=== PATIENT | male | born 1970 | race Caucasian/White ===

== ENCOUNTER 2016-08-28 14:01 | Emergency (ER) | payer OTHER ==
[~2016-08-28 14:01] MED LIST: LEXA20TA PO; REME30TA PO; ZITHTAB PO
[2016-08-28 14:23] VITALS: BP 114/92; PULSE 94; RESP 16; TEMP 98; O2SAT 96
[2016-08-28] MEDS ORDERED: RESP: ALBUTEROL 2.5 MG/IPRATROPIUM 0.5 MG NEB (SCH) INH (14:30)
--- NOTE | 2016-08-28 14:35 | PD ---
HPI Chief Complaint: Psychiatric Symptoms Time Seen by Provider: 14:31 Travel History International Travel<30 days: No Contact w/Intl Traveler<30days: No Traveled to known affect area: No History of Present Illness HPI 45 year old male presents to the emergency department under [place] act by local police. Patient states he is depressed and feeling suicidal. Patient states he drinks a fifth of vodka daily. He states here he drank a fifth of vodka today. He also reports chest congestion and cough since last night. He states that he smoked cocaine last night as well as the night before. He states he does not typically use cocaine. He does report history of alcohol withdrawal seizures. Patient is not currently on any medications. Patient states his tetanus immunization is up-to-date. [facility] Past Medical History Anxiety: Yes Depression: Yes Cardiovascular Problems: Yes (PALPITATIONS ) Respiratory: Yes Seizures: Yes (ETOH WITHDRAWL ) Tetanus Vaccination: < 5 Years Social History Alcohol Use: Yes (VODKA 1/5 DAILY ) Tobacco Use: Yes (1 08/28 PPD) Substance Use: Yes (ETOH DAILY) Allergies-Medications (Allergen,Severity, Reaction): Coded Allergies: Paxil (Verified Allergy, Intermediate, Confusion, 08/28/16) Reported Meds & Prescriptions Reported Meds & Active Scripts Active No Active Prescriptions or Reported Medications Review of Systems Except as stated in HPI: all other systems reviewed are Neg Physical Exam Narrative GENERAL: Well-developed well-nourished male patient, ambulatory. Afebrile. SKIN: Warm and dry. Patient has dried blood on his left hand. No laceration noted. HEAD: Normocephalic. Atraumatic. EYES: No scleral icterus. No injection or drainage. NECK: Supple, trachea midline. No JVD or lymphadenopathy. CARDIOVASCULAR: Regular rate and rhythm without murmurs, gallops, or rubs. RESPIRATORY: Breath sounds equal bilaterally. No accessory muscle use. Mild extra wheezes noted throughout. Cough noted. GASTROINTESTINAL: Abdomen soft, non-tender, nondistended. MUSCULOSKELETAL: No cyanosis, or edema. BACK: Nontender without obvious deformity. No CVA tenderness. PSYCHIATRIC: No delusional thought processes. No hallucinations. Data Data Last Documented VS Vital Signs Date Time Temp Pulse Resp B/P Pulse Ox O2 Delivery O2 Flow Rate FiO2 08/28/16 14:23 98.0 94 16 114/92 96 Orders Complete Blood Count With Diff (08/28/16 14:30) Comprehensive Metabolic Panel (08/28/16 14:30) Drug Screen, Random Urine (08/28/16 14:30) Alcohol (Ethanol) (08/28/16 14:30) Salicylates (Aspirin) (08/28/16 14:30) Tylenol (Acetaminophen) (08/28/16 14:30) Psych Screen (08/28/16 14:30) Chest, Single Ap (08/28/16 14:30) Albuterol-Ipratropium Neb (Duoneb Neb) (08/28/16 14:30) Diet Regular Basic (08/28/16 Dinner) Labs Laboratory Tests Test 08/28/16 08/28/16 15:00 15:06 Urine Opiates Screen NEG Urine Barbiturates Screen NEG Urine Amphetamines Screen NEG Urine Benzodiazepines Screen NEG Urine Cocaine Screen POS Urine Cannabinoids Screen NEG White Blood Count 9.7 TH/MM3 Red Blood Count 5.09 MIL/MM3 Hemoglobin 16.4 GM/DL Hematocrit 47.7 % Mean Corpuscular Volume 93.7 FL Mean Corpuscular Hemoglobin 32.2 PG Mean Corpuscular Hemoglobin 34.4 % Concent Red Cell Distribution Width 14.2 % Platelet Count 256 TH/MM3 Mean Platelet Volume 8.0 FL Neutrophils (%) (Auto) 62.0 % Lymphocytes (%) (Auto) 31.3 % Monocytes (%) (Auto) 4.3 % Eosinophils (%) (Auto) 1.5 % Basophils (%) (Auto) 0.9 % Neutrophils # (Auto) 6.0 TH/MM3 Lymphocytes # (Auto) 3.0 TH/MM3 Monocytes # (Auto) 0.4 TH/MM3 Eosinophils # (Auto) 0.1 TH/MM3 Basophils # (Auto) 0.1 TH/MM3 CBC Comment DIFF FINAL Differential Comment Sodium Level 141 MEQ/L Potassium Level 3.8 MEQ/L Chloride Level 106 MEQ/L Carbon Dioxide Level 24.1 MEQ/L Anion Gap 11 MEQ/L Blood Urea Nitrogen 5 MG/DL Creatinine 0.69 MG/DL Estimat Glomerular Filtration 123 ML/MIN Rate Random Glucose 63 MG/DL Calcium Level 8.7 MG/DL Total Bilirubin 0.5 MG/DL Aspartate Amino Transf 17 U/L (AST/SGOT) Alanine Aminotransferase 24 U/L (ALT/SGPT) Alkaline Phosphatase 78 U/L Total Protein 7.0 GM/DL Albumin 3.8 GM/DL Salicylates Level 2.6 MG/DL Acetaminophen Level LESS THAN 2.0 MCG/ML Ethyl Alcohol Level 250 MG/DL MDM Medical Decision Making Medical Screen Exam Complete: Yes Emergency Medical Condition: Yes Medical Record Reviewed: Yes Interpretation(s) chest x-ray - CONCLUSION: No acute disease. Differential Diagnosis Substance induced mood disorder versus bipolar disorder versus depression versus anxiety versus URI versus bronchitis versus pneumonia Narrative Course 45-year-old male presents to the emergency department for psychiatric evaluation under [place] act by local police. Patient does have extra wheezes noted and patient complaining of chest congestion and cough. CBC, CMP, urine drug screen, alcohol level, acetaminophen level, salicylate level are ordered and pending. Patient's given DuoNeb 2. Chest x-ray is ordered and pending. CBC is unremarkable. CMP shows no acute abnormalities. UDS is positive for cocaine. Alcohol level is 250. Acetaminophen level is less than 2.0. Salicylate level is 2.6. Chest x-ray shows no acute disease. Patient is medically cleared for psychiatric screening and disposition. Mental health screening discussed with the patient. Psychiatric screen ordered. Diagnosis Primary Impression: Substance induced mood disorder Additional Impression: Alcohol intoxication Qualified Code: F10.120 - Alcohol intoxication, uncomplicated Additional Instructions: Patient is medically cleared for psychiatric screening and disposition. Scripts No Active Prescriptions or Reported Meds Condition: Stable JesseShirlene PAREKH Aug 28, 2016 14:34
--- NOTE | 2016-08-28 14:54 | RADRPT ---
EXAM DATE/TIME: 08/28/2016 14:36 [facility] COMPARISON: No previous studies available for comparison. INDICATIONS : Cough. MEDICAL HISTORY : None. SURGICAL HISTORY : None. ENCOUNTER: Initial ACUITY: 1 month PAIN SCORE: 0/10 LOCATION: Bilateral chest FINDINGS: A single view of the chest demonstrates the lungs to be symmetrically aerated without evidence of mas s, infiltrate or effusion. The cardiomediastinal contours are unremarkable. Osseous structures are intact. CONCLUSION: No acute disease. Jeanmarie Diana MD on August 28, 2016 at 14:52 Board Certified Radiologist. This report was verified electronically.
[2016-08-28 15:32] LABS: BASOPHIL # 0.1 TH/MM3 (0-0.2); BASOPHIL % 0.9 % (0.0-2.0); EOSINOPHIL # 0.1 TH/MM3 (0-0.4); EOSINOPHIL % 1.5 % (0.0-4.0); HEMATOCRIT 47.7 % (39.0-51.0); HEMO FLAGS DIFF FINAL; LYMPH % 31.3 % (9.0-44.0); MEAN CELL VOLUME 93.7 FL (80.0-100.0); MEAN CORPUSCULAR HEMOGLOBIN 32.2 PG (27.0-34.0); MEAN CORPUSCULAR HGB CONC 34.4 % (32.0-36.0); MONO % 4.3 % (0.0-8.0); PLATELET COUNT 256 TH/MM3 (150-450); RED BLOOD COUNT 5.09 MIL/MM3 (4.50-5.90); RED CELL DISTRIBUTION WIDTH 14.2 % (11.6-17.2); WHITE BLOOD COUNT 9.7 TH/MM3 (4.0-11.0)
[2016-08-28 15:38] LABS: AMPHETAMINE, URINE NEG (NEG); BARBITURATES, URINE NEG (NEG); COCAINE, URINE POS (NEG)
[2016-08-28 15:43] LABS: ALT (GPT) 24 U/L (12-78); ANION GAP 11 MEQ/L (5-15); AST (GOT) 17 U/L (15-37); BICARBONATE 24.1 MEQ/L (21.0-32.0); BLOOD UREA NITROGEN 5 MG/DL (7-18); CHLORIDE 106 MEQ/L (98-107); GLOMERULAR FILTRATION RATE 123 ML/MIN (>89); POTASSIUM 3.8 MEQ/L (3.5-5.1); SODIUM (NA) 141 MEQ/L (136-145)
[2016-08-28 15:46] LABS: ACETAMINOPHEN LESS THAN 2.0 MCG/ML (10.0-30.0); ALKALINE PHOSPHATASE 78 U/L (45-117); TOTAL BILIRUBIN ADULT 0.5 MG/DL (0.2-1.0)
[2016-08-28 18:59] VITALS: BP 126/75; PULSE 98; RESP 18; TEMP 99.1; O2SAT 93
[2016-08-28 22:20] VITALS: BP 156/88; PULSE 98; RESP 20; O2SAT 99
[2016-08-28 22:24] VITALS: BP 156/86; PULSE 98; RESP 2; O2SAT 99
[2016-08-28] MEDS ORDERED: chlordiazePOXIDE 25 MG CAP PO ONE (23:15)
[2016-08-29 03:09] VITALS: BP 154/88; PULSE 63; RESP 18; TEMP 97.1; O2SAT 97
[2016-08-29 06:16] VITALS: BP 156/93; PULSE 66; RESP 18; O2SAT 98
== END 2016-08-29 08:47 ==
LOC: NEDAMB 14:01 → NEPJ 08-29 08:47
DX: F19.94 Other psychoactive substance use, unspecified with psychoactive substance-induced mood disorder (principal); F10.120 Alcohol abuse with intoxication, uncomplicated; F17.210 Nicotine dependence, cigarettes, uncomplicated
CPT/HCPCS: 71010; 80053; 80307; 80320; 80329; 85025; 99283; G0480

== ENCOUNTER 2016-09-09 19:07 | Emergency (ER) | payer SELFPAY ==
[~2016-09-09] VITALS: Ht 172.7 cm; Wt 72.7 kg
[2016-09-09 19:18] VITALS: BP 109/58; PULSE 94; RESP 20; TEMP 98.5; O2SAT 97
[2016-09-09] MEDS ORDERED: ACETAMINOPHEN 325 MG TAB PO ONE (21:00)
--- NOTE | 2016-09-09 21:43 | PD ---
HPI Chief Complaint: Alcohol/Drug Intoxication Time Seen by Provider: 21:40 Travel History International Travel<30 days: No Contact w/Intl Traveler<30days: No History of Present Illness HPI 45-year-old male that presents to the ED for evaluation of substance abuse. Patient apparently was found by police belligerent and intoxicated. Patient states that he drank a lot of alcohol today. Patient has a history of alcohol abuse. Patient's only complaint is that of left knee pain and left shoulder pain that he has chronically. He states that he has a fracture shoulder and that he needed someone to look into it. He denies any other medical problems. No chest pain or shortness of breath. No abdominal pain. He denies any recent falls. Allergy to Paxil. 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 [facility] Past Medical History Anxiety: Yes Depression: Yes Cardiovascular Problems: Yes (PALPITATIONS ) Respiratory: Yes Seizures: Yes (ETOH WITHDRAWL ) Tetanus Vaccination: > 5 Years Social History Alcohol Use: Yes (VODKA 1/5 DAILY ) Tobacco Use: Yes (1 1/2 PPD) Substance Use: Yes (ETOH DAILY, COCAINE) Allergies-Medications (Allergen,Severity, Reaction): Coded Allergies: Paxil (Verified Allergy, Intermediate, Confusion, 09/09/16) Reported Meds & Prescriptions Reported Meds & Active Scripts Active No Active Prescriptions or Reported Medications Review of Systems Except as stated in HPI: all other systems reviewed are Neg Physical Exam Narrative GENERAL: SKIN: Warm and dry. HEAD: Atraumatic. Normocephalic. EYES: Pupils equal and round. No scleral icterus. No injection or drainage. ENT: No nasal bleeding or discharge. Mucous membranes pink and moist. NECK: Trachea midline. No JVD. CARDIOVASCULAR: Regular rate and rhythm. RESPIRATORY: No accessory muscle use. Clear to auscultation. Breath sounds equal bilaterally. GASTROINTESTINAL: Abdomen soft, non-tender, nondistended. Hepatic and splenic margins not palpable. MUSCULOSKELETAL: Extremities without clubbing, cyanosis, or edema. No obvious deformities. Patient does have some surgical scars on the left shoulder but able to move it fully. Some pain with range of motion. 2+ pulses bilaterally. Full range of motion of the knees. Patient has a brace on the left knee with no sign of acute disease. Pupils pulses bilaterally. Sensation intact bilaterally. Full range of motion of the ankles. NEUROLOGICAL: Awake and alert. No obvious cranial nerve deficits. Motor grossly within normal limits. Five out of 5 muscle strength in the arms and legs. Normal speech. PSYCHIATRIC: Appropriate mood and affect; insight and judgment normal. Data Data Last Documented VS Vital Signs Date Time Temp Pulse Resp B/P Pulse Ox O2 Delivery O2 Flow Rate FiO2 09/09/16 19:18 98.5 94 20 109/58 97 Orders Knee, Complete (4vws) (09/09/16 20:54) Shoulder, Complete (>2vws) (09/09/16 20:54) Ice/Cold Pack (09/09/16 20:54) Acetaminophen (Tylenol) (09/09/16 21:00) MDM Medical Decision Making Medical Screen Exam Complete: Yes Emergency Medical Condition: Yes Medical Record Reviewed: Yes Differential Diagnosis Alcohol abuse versus malingering versus substance abuse Narrative Course 45-year-old male that presents to the ED for evaluation of major psych. Patient was probably examined and was found to have no signs of acute medical distress. Patient complaining of pain on the left knee and shoulder. Patient was offered x-rays. Apparently patient declined x-rays and once MRIs. MRIs will not be done at this is a chronic problem and I do not see any need for new imaging at this time. Patient is to follow with orthopedic doctor for further assessment of this. Patient was given Tylenol for his pain. Patient will be allowed to sleep off his intoxication until medically sober. Diagnosis Primary Impression: Alcohol intoxication Qualified Code: F10.120 - Alcohol intoxication, uncomplicated Scripts No Active Prescriptions or Reported Meds Herbert Levin Sep 09, 2016 21:43
[2016-09-09 23:00] VITALS: BP 120/68; PULSE 84; RESP 16; O2SAT 98
[2016-09-10 03:00] VITALS: BP 129/70; PULSE 80; RESP 16; O2SAT 98
== END 2016-09-10 06:40 | disposition home or self-care (01) ==
LOC: NEPA 19:07
DX: F10.120 Alcohol abuse with intoxication, uncomplicated (principal)
CPT/HCPCS: 99284

== ENCOUNTER 2016-09-15 20:41 | Emergency (ER) | payer SELFPAY ==
[~2016-09-15] VITALS: Ht 172.7 cm; Wt 65.0 kg
[2016-09-15 20:42] VITALS: BP 136/104; PULSE 89; RESP 18; TEMP 98.1; O2SAT 96
== END 2016-09-16 00:48 | disposition left against medical advice (07) ==
LOC: NED 20:41
DX: R68.89 Other general symptoms and signs (principal)
CPT/HCPCS: 99281

== ENCOUNTER 2016-09-25 16:05 | Emergency (ER) | payer OTHER ==
[2016-09-25 16:37] VITALS: BP 130/83; PULSE 88; RESP 20; TEMP 97.9; O2SAT 98
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
--- NOTE | 2016-09-25 17:11 | RADRPT ---
EXAM DATE/TIME: 09/25/2016 16:56 [facility] COMPARISON: CHEST SINGLE AP, August 28, 2016, 14:36. INDICATIONS : Shortness of breath and cough for the past two months. Pain in upper chest. MEDICAL HISTORY : None. SURGICAL HISTORY : None. ENCOUNTER: Initial ACUITY: 2 months PAIN SCORE: 5/10 LOCATION: Bilateral chest FINDINGS: A single view of the chest demonstrates the lungs to be symmetrically aerated without evidence of mas s, infiltrate or effusion. The cardiomediastinal contours are unremarkable. Osseous structures are intact. CONCLUSION: No acute disease. No significant change has occurred. Edson Mcdowell MD on September 25, 2016 at 17:09 Board Certified Radiologist. This report was verified electronically.
--- NOTE | 2016-09-25 17:12 | RADRPT ---
EXAM DATE/TIME: 09/25/2016 17:02 [facility] COMPARISON: No previous studies available for comparison. INDICATIONS : Altered mental status with possible head trauma. RADIATION DOSE: 56.35 CTDIvol (mGy) MEDICAL HISTORY : Seizures. Cardiovascular disease SURGICAL HISTORY : None. ENCOUNTER: Initial ACUITY: 1 day PAIN SCALE: 3/10 LOCATION: cranial TECHNIQUE: Multiple contiguous axial images were obtained of the head. Using automated exposure control and adj ustment of the mA and/or kV according to patient size, radiation dose was kept as low as reasonably a chievable to obtain optimal diagnostic quality images. FINDINGS: CEREBRUM: The ventricles are normal for age. No evidence of midline shift, mass lesion, hemorrhage or acute in farction. No extra-axial fluid collections are seen. POSTERIOR FOSSA: The cerebellum and brainstem are intact. The 4th ventricle is midline. The cerebellopontine angle i s unremarkable. EXTRACRANIAL: The visualized portion of the orbits is intact. SKULL: The calvaria is intact. No evidence of skull fracture. CONCLUSION: Normal examination. Edson Mcdowell MD on September 25, 2016 at 17:10 Board Certified Radiologist. This report was verified electronically.
== END 2016-09-25 17:39 | disposition left against medical advice (07) ==
LOC: NEPE 16:05
DX: F10.10 Alcohol abuse, uncomplicated (principal); R05 Cough
CPT/HCPCS: 70450; 71010

== ENCOUNTER 2016-10-04 18:38 | Emergency (ER) | payer OTHER ==
[~2016-10-04] VITALS: Ht 162.6 cm; Wt 70.0 kg
[2016-10-04 19:50] LABS: AUTOMATED NEUTROPHIL # 6.4 TH/MM3 (1.8-7.7); BASOPHIL # 0.1 TH/MM3 (0-0.2); EOSINOPHIL # 0.3 TH/MM3 (0-0.4); EOSINOPHIL % 2.6 % (0.0-4.0); HEMATOCRIT 49.4 % (39.0-51.0); HEMO FLAGS DIFF FINAL; LYMPH % 31.8 % (9.0-44.0); LYMPHOCYTE # 3.5 TH/MM3 (1.0-4.8); MEAN CELL VOLUME 94.1 FL (80.0-100.0); MEAN CORPUSCULAR HEMOGLOBIN 32.6 PG (27.0-34.0); MEAN CORPUSCULAR HGB CONC 34.7 % (32.0-36.0); MONO % 6.6 % (0.0-8.0); PLATELET COUNT 225 TH/MM3 (150-450); RED BLOOD COUNT 5.25 MIL/MM3 (4.50-5.90); RED CELL DISTRIBUTION WIDTH 15.3 % (11.6-17.2)
[2016-10-04 19:54] LABS: AMPHETAMINE, URINE NEG (NEG); BARBITURATES, URINE NEG (NEG); COCAINE, URINE NEG (NEG)
[2016-10-04 20:00] VITALS: BP 148/88; PULSE 88; RESP 18; TEMP 98
[2016-10-04 20:29] LABS: ALKALINE PHOSPHATASE 76 U/L (45-117); ALT (GPT) 27 U/L (12-78); ANION GAP 7 MEQ/L (5-15); AST (GOT) 27 U/L (15-37); BICARBONATE 26.9 MEQ/L (21.0-32.0); BLOOD UREA NITROGEN 9 MG/DL (7-18); CHLORIDE 108 MEQ/L (98-107); GLOMERULAR FILTRATION RATE 104 ML/MIN (>89); POTASSIUM 4.6 MEQ/L (3.5-5.1); SODIUM (NA) 142 MEQ/L (136-145); TOTAL BILIRUBIN ADULT 0.5 MG/DL (0.2-1.0)
--- NOTE | 2016-10-04 20:49 | PD ---
HPI Chief Complaint: Psychiatric Symptoms Time Seen by Provider: 20:46 Travel History International Travel<30 days: No Contact w/Intl Traveler<30days: No Traveled to known affect area: No History of Present Illness HPI Patient was under [place] act by police for being intoxicated and making suicidal statements. Patient states that he was drinking today and he is wanting to stop for good. Patient denies any chest pain, shortness of breath, nausea, vomiting, or fevers. PFSH Past Medical History Anxiety: Yes Depression: Yes Cardiovascular Problems: Yes (PALPITATIONS ) Respiratory: Yes (COPD) Seizures: Yes (ETOH WITHDRAWL ) Social History Alcohol Use: Yes (VODKA 1/5 DAILY, " MUCH I POSSIBLY CAN") Tobacco Use: Yes (1 08/28 PPD) Substance Use: Yes (ETOH DAILY, COCAINE) Allergies-Medications (Allergen,Severity, Reaction): Coded Allergies: Paxil (Verified Allergy, Intermediate, Confusion, 09/25/16) Reported Meds & Prescriptions Reported Meds & Active Scripts Active No Active Prescriptions or Reported Medications Review of Systems ROS Limitations: Intoxication Except as stated in HPI: all other systems reviewed are Neg Physical Exam Exam Limitations: Intoxication Narrative GENERAL: Well-developed, well nourished, in no acute distress, and non-ill appearing. SKIN: Warm and dry. HEAD: Atraumatic. Normocephalic. EYES: Pupils equal and round. EOMI. No scleral icterus. No injection or drainage. ENT: No nasal bleeding or discharge. Mucous membranes pink and moist. NECK: Trachea midline. Supple. No nuclear rigidity. CARDIOVASCULAR: Regular rate and rhythm. No murmur appreciated. RESPIRATORY: No accessory muscle use. No respiratory distress. Clear to auscultation. Breath sounds equal bilaterally. MUSCULOSKELETAL: No obvious deformities. No clubbing. No cyanosis. No edema. Full range of motion. NEUROLOGICAL: Awake and alert. No obvious cranial nerve deficits. Motor grossly within normal limits. Data Data Last Documented VS Vital Signs Date Time Temp Pulse Resp B/P Pulse Ox O2 Delivery O2 Flow Rate FiO2 10/04/16 20:00 98.0 88 18 148/88 Orders Complete Blood Count With Diff (10/04/16 19:10) Comprehensive Metabolic Panel (10/04/16 19:10) Psych Screen (10/04/16 19:10) Drug Screen, Random Urine (10/04/16 19:10) Alcohol (Ethanol) (10/04/16 19:10) Labs Laboratory Tests Test 10/04/16 10/04/16 19:33 19:35 Urine Opiates Screen NEG Urine Barbiturates Screen NEG Urine Amphetamines Screen NEG Urine Benzodiazepines Screen POS Urine Cocaine Screen NEG Urine Cannabinoids Screen NEG White Blood Count 11.0 TH/MM3 Red Blood Count 5.25 MIL/MM3 Hemoglobin 17.1 GM/DL Hematocrit 49.4 % Mean Corpuscular Volume 94.1 FL Mean Corpuscular Hemoglobin 32.6 PG Mean Corpuscular Hemoglobin 34.7 % Concent Red Cell Distribution Width 15.3 % Platelet Count 225 TH/MM3 Mean Platelet Volume 8.4 FL Neutrophils (%) (Auto) 58.0 % Lymphocytes (%) (Auto) 31.8 % Monocytes (%) (Auto) 6.6 % Eosinophils (%) (Auto) 2.6 % Basophils (%) (Auto) 1.0 % Neutrophils # (Auto) 6.4 TH/MM3 Lymphocytes # (Auto) 3.5 TH/MM3 Monocytes # (Auto) 0.7 TH/MM3 Eosinophils # (Auto) 0.3 TH/MM3 Basophils # (Auto) 0.1 TH/MM3 CBC Comment DIFF FINAL Differential Comment Sodium Level 142 MEQ/L Potassium Level 4.6 MEQ/L Chloride Level 108 MEQ/L Carbon Dioxide Level 26.9 MEQ/L Anion Gap 7 MEQ/L Blood Urea Nitrogen 9 MG/DL Creatinine 0.80 MG/DL Estimat Glomerular Filtration 104 ML/MIN Rate Random Glucose 94 MG/DL Calcium Level 8.1 MG/DL Total Bilirubin 0.5 MG/DL Aspartate Amino Transf 27 U/L (AST/SGOT) Alanine Aminotransferase 27 U/L (ALT/SGPT) Alkaline Phosphatase 76 U/L Total Protein 7.3 GM/DL Albumin 3.8 GM/DL Ethyl Alcohol Level 244 MG/DL [facility] Medical Decision Making Medical Screen Exam Complete: Yes Emergency Medical Condition: Yes Differential Diagnosis Homicidal, suicidal, alcohol intoxication, mood disorder, other Narrative Course Patient was seen and examined. Labs were obtained and reviewed. Patient medically cleared for further treatment and evaluation by psych. Final disposition per psych. Diagnosis Primary Impression: Alcohol intoxication Qualified Code: F10.120 - Alcohol intoxication, uncomplicated Scripts No Active Prescriptions or Reported Meds Condition: Stable Maycol Moralez Oct 04, 2016 20:49
[2016-10-04] MEDS ORDERED: LORazepam 2 MG TAB PO PRN (21:00)
[2016-10-04] MEDS ORDERED: LORazepam 1 MG TAB PO PRN (21:00)
[2016-10-04] MEDS ORDERED: FLUMAZENIL 0.5 MG/5 ML VIAL IV PUSH PRN (21:00)
[2016-10-04] MEDS ORDERED: LORazepam 2 MG/ML VIAL IV PUSH PRN ×4 (21:00)
[2016-10-04 21:51] VITALS: BP 130/82; PULSE 92; RESP 18; TEMP 97.6; O2SAT 97
[2016-10-05 02:00] VITALS: BP 154/92; PULSE 94; RESP 18; O2SAT 97
== END 2016-10-05 04:22 ==
LOC: NEDAMB 18:38 → NEPJ 10-05 04:22
DX: F10.129 Alcohol abuse with intoxication, unspecified (principal); F41.8 Other specified anxiety disorders; J44.9 Chronic obstructive pulmonary disease, unspecified; F17.210 Nicotine dependence, cigarettes, uncomplicated; Y90.8 Blood alcohol level of 240 mg/100 ml or more
CPT/HCPCS: 80053; 80307; 80320; 85025; 99283

== ENCOUNTER 2016-10-12 19:26 | Emergency (ER) | payer OTHER ==
[2016-10-12 20:11] VITALS: BP 89/56; PULSE 86; RESP 18; TEMP 98.4; O2SAT 95
[2016-10-12 21:17] LABS: AUTOMATED NEUTROPHIL # 7.5 TH/MM3 (1.8-7.7); BASOPHIL # 0.1 TH/MM3 (0-0.2); BASOPHIL % 1.1 % (0.0-2.0); EOSINOPHIL # 0.2 TH/MM3 (0-0.4); EOSINOPHIL % 1.6 % (0.0-4.0); HEMO FLAGS DIFF FINAL; LYMPH % 27.6 % (9.0-44.0); LYMPHOCYTE # 3.3 TH/MM3 (1.0-4.8); MEAN CELL VOLUME 92.8 FL (80.0-100.0); MEAN CORPUSCULAR HEMOGLOBIN 32.1 PG (27.0-34.0); MEAN CORPUSCULAR HGB CONC 34.6 % (32.0-36.0); MONO % 7.1 % (0.0-8.0); NEUT % 62.6 % (16.0-70.0); PLATELET COUNT 201 TH/MM3 (150-450); RED BLOOD COUNT 4.95 MIL/MM3 (4.50-5.90); RED CELL DISTRIBUTION WIDTH 15.3 % (11.6-17.2)
--- NOTE | 2016-10-12 21:21 | PD ---
HPI Chief Complaint: Psychiatric Symptoms Time Seen by Provider: 21:21 Travel History International Travel<30 days: No Contact w/Intl Traveler<30days: No Traveled to known affect area: No History of Present Illness HPI 45 year male presents to emergency department for psychiatric evaluation. Patient states he has been drinking large amount of alcohol. He does have seizure disorder. States that he is feeling helpless and does not want to go on anymore. He still does not want to tell me if he has a plan. He denies any acute medical needs. Denies illicit drug use. Has no other symptoms to report. PFSH Past Medical History Anxiety: Yes Depression: Yes Cardiovascular Problems: Yes (PALPITATIONS ) Respiratory: Yes (COPD) Seizures: Yes (ETOH WITHDRAWL ) Social History Alcohol Use: Yes (VODKA 1/5 DAILY, " MUCH I POSSIBLY CAN") Tobacco Use: Yes (08/28 PPD) Substance Use: Yes (ETOH DAILY, COCAINE) Allergies-Medications (Allergen,Severity, Reaction): Coded Allergies: Paxil (Verified Allergy, Intermediate, Confusion, 09/25/16) Reported Meds & Prescriptions Reported Meds & Active Scripts Active No Active Prescriptions or Reported Medications Review of Systems ROS Limitations: Intoxication Except as stated in HPI: all other systems reviewed are Neg Physical Exam Exam Limitations: Intoxication Narrative GENERAL: Well-nourished, well-developed male patient in no acute distress. SKIN: Warm and dry. HEAD: Normocephalic. EYES: No scleral icterus. No injection or drainage. NECK: Supple, trachea midline. No JVD or lymphadenopathy. CARDIOVASCULAR: Regular rate and rhythm without murmurs, gallops, or rubs. RESPIRATORY: Breath sounds equal bilaterally. No accessory muscle use. GASTROINTESTINAL: Abdomen soft, non-tender, nondistended. MUSCULOSKELETAL: No cyanosis, or edema. BACK: Nontender without obvious deformity. No CVA tenderness. Data Data Last Documented VS Vital Signs Date Time Temp Pulse Resp B/P Pulse Ox O2 Delivery O2 Flow Rate FiO2 10/12/16 22:16 80 18 84/48 95 Room Air 10/12/16 20:11 98.4 Orders Complete Blood Count With Diff (10/12/16 20:24) Basic Metabolic Panel (Bmp) (10/12/16 20:24) Psych Screen (10/12/16 20:24) Drug Screen, Random Urine (10/12/16 20:24) Alcohol (Ethanol) (10/12/16 20:24) Labs Laboratory Tests Test 10/12/16 10/12/16 21:00 21:10 White Blood Count 12.0 TH/MM3 Red Blood Count 4.95 MIL/MM3 Hemoglobin 15.9 GM/DL Hematocrit 46.0 % Mean Corpuscular Volume 92.8 FL Mean Corpuscular Hemoglobin 32.1 PG Mean Corpuscular Hemoglobin 34.6 % Concent Red Cell Distribution Width 15.3 % Platelet Count 201 TH/MM3 Mean Platelet Volume 8.5 FL Neutrophils (%) (Auto) 62.6 % Lymphocytes (%) (Auto) 27.6 % Monocytes (%) (Auto) 7.1 % Eosinophils (%) (Auto) 1.6 % Basophils (%) (Auto) 1.1 % Neutrophils # (Auto) 7.5 TH/MM3 Lymphocytes # (Auto) 3.3 TH/MM3 Monocytes # (Auto) 0.8 TH/MM3 Eosinophils # (Auto) 0.2 TH/MM3 Basophils # (Auto) 0.1 TH/MM3 CBC Comment DIFF FINAL Differential Comment Sodium Level 139 MEQ/L Potassium Level 4.0 MEQ/L Chloride Level 103 MEQ/L Carbon Dioxide Level 26.2 MEQ/L Anion Gap 10 MEQ/L Blood Urea Nitrogen 18 MG/DL Creatinine 0.77 MG/DL Estimat Glomerular Filtration 109 ML/MIN Rate Random Glucose 102 MG/DL Calcium Level 8.3 MG/DL Ethyl Alcohol Level 241 MG/DL Urine Opiates Screen NEG Urine Barbiturates Screen NEG Urine Amphetamines Screen NEG Urine Benzodiazepines Screen POS Urine Cocaine Screen NEG Urine Cannabinoids Screen NEG MDM Medical Decision Making Medical Screen Exam Complete: Yes Emergency Medical Condition: Yes Medical Record Reviewed: Yes Differential Diagnosis Mood disorder versus personality disorder versus alcohol intoxication versus alcohol dependency versus withdraw Narrative Course 45 year-old male presents to emergency department for evaluation. Patient appears overall without distress. He does appear intoxicated and discusses wanting to end his life. CBC and BMP are without acute concern. Toxicology is positive for benzodiazepines. EtOH is 241. Patient is medically cleared to undergo psychiatric screening for further evaluation and disposition. Mental health screening discussed with the patient. Psychiatric screen ordered. Diagnosis Primary Impression: Alcohol intoxication Qualified Code: F10.120 - Alcohol intoxication, uncomplicated Additional Impression: Substance induced mood disorder Scripts No Active Prescriptions or Reported Meds Condition: Stable Olivia Olea Oct 12, 2016 21:21
[2016-10-12 21:27] LABS: AMPHETAMINE, URINE NEG (NEG); BARBITURATES, URINE NEG (NEG); COCAINE, URINE NEG (NEG)
[2016-10-12 21:40] LABS: BICARBONATE 26.2 MEQ/L (21.0-32.0)
[2016-10-12 22:16] VITALS: BP 84/48; PULSE 80; RESP 18; O2SAT 95
[2016-10-14] MEDS ORDERED: LEXA10TA PO (21:22)
[2016-10-14] MEDS ORDERED: REME15TA PO (21:22)
== END 2016-10-13 00:55 ==
LOC: NEDAMB 19:26 → NEPJ 10-13 00:55
DX: F10.120 Alcohol abuse with intoxication, uncomplicated (principal); Y90.8 Blood alcohol level of 240 mg/100 ml or more
CPT/HCPCS: 80048; 80307; 80320; 85025; 99284

== ENCOUNTER 2016-10-14 19:29 | Emergency (ER) | payer SELFPAY ==
[~2016-10-14] VITALS: Ht 172.7 cm; Wt 70.0 kg
[2016-10-14 19:30] VITALS: BP 129/69; PULSE 121; RESP 20; TEMP 98.7; O2SAT 91
[2016-10-14] MEDS ORDERED: SODIUM CHLORIDE 0.9% FLUSH 5 ML FLUSH IVF PRN (19:45)
[2016-10-14] MEDS ORDERED: SODIUM CHLOR 0.9% 1000 ML INJ 1,000 ML IV ONE (19:45)
[2016-10-14] MEDS ORDERED: ACTIVATED CHARCOAL LIQUID 25 GM/120 ML BTL PO/NG ONE (19:45)
[2016-10-14 20:00] VITALS: BP 129/64; PULSE 125; RESP 18; O2SAT 94
[2016-10-14 20:30] VITALS: BP 116/58; PULSE 126; RESP 18; O2SAT 98
[2016-10-14 20:46] LABS: AUTOMATED NEUTROPHIL # 5.2 TH/MM3 (1.8-7.7); BASOPHIL # 0.1 TH/MM3 (0-0.2); BASOPHIL % 0.6 % (0.0-2.0); EOSINOPHIL # 0.3 TH/MM3 (0-0.4); EOSINOPHIL % 2.9 % (0.0-4.0); HEMATOCRIT 46.4 % (39.0-51.0); HEMO FLAGS DIFF FINAL; LYMPH % 35.6 % (9.0-44.0); LYMPHOCYTE # 3.5 TH/MM3 (1.0-4.8); MEAN CELL VOLUME 94.8 FL (80.0-100.0); MEAN CORPUSCULAR HEMOGLOBIN 33.5 PG (27.0-34.0); MEAN CORPUSCULAR HGB CONC 35.4 % (32.0-36.0); MONO % 8.3 % (0.0-8.0); NEUT % 52.6 % (16.0-70.0); PLATELET COUNT 234 TH/MM3 (150-450); RED CELL DISTRIBUTION WIDTH 15.2 % (11.6-17.2); WHITE BLOOD COUNT 9.9 TH/MM3 (4.0-11.0)
[2016-10-14 20:57] LABS: APTT (PATIENT) 25.9 SEC (24.3-30.1); INTERNATIONAL NORMALIZED RATIO 0.9 RATIO; PROTHROMBIN TIME - PATIENT 9.8 SEC (9.8-11.6)
[2016-10-14] MEDS ORDERED: REME15TA PO (21:22)
[2016-10-14] MEDS ORDERED: LEXA10TA PO (21:22)
[2016-10-14 21:45] VITALS: BP 115/56; PULSE 123; RESP 20; O2SAT 94
[2016-10-14 21:46] LABS: BLOOD GAS BASE EXCESS -3.8 mmol/L (-2-2); BLOOD GAS CARBOXYHEMOGLOBIN 10.2 % (0-4); BLOOD GAS HCO3 21 mmol/L (22-26); BLOOD GAS METHEMOGLOBIN 2.8 % (0-2); BLOOD GAS O2 HGB SATURATION 83 % (90-100); BLOOD GAS OXYGEN CONTENT 18.2 Vol % (12.0-20.0); BLOOD GAS PCO2 42 mmHg (38-42); BLOOD GAS PO2 79 mmHG (61-120); BLOOD GAS TOTAL HGB 15.6 G/DL (12.0-16.0); CRITICAL VALUE YES; OXYGEN DEVICE NASAL CANNULA; TEMP CORR TO 98.6
[2016-10-14 21:47] LABS: DRAW SITE RT RADIAL; LITER FLOW 1 L/M; NUMBER OF ARTERIAL PUNCTURES 1; STAT YES; ULNAR PULSE PRESENT
[2016-10-14 22:08] LABS: ALKALINE PHOSPHATASE 85 U/L (45-117); ANION GAP 13 MEQ/L (5-15); AST (GOT) 51 U/L (15-37); BICARBONATE 21.2 MEQ/L (21.0-32.0); BLOOD UREA NITROGEN 23 MG/DL (7-18); CHLORIDE 107 MEQ/L (98-107); GLOMERULAR FILTRATION RATE 87 ML/MIN (>89); POTASSIUM 4.4 MEQ/L (3.5-5.1); SODIUM (NA) 141 MEQ/L (136-145); TOTAL BILIRUBIN ADULT 0.4 MG/DL (0.2-1.0)
[2016-10-14 22:09] LABS: ACETAMINOPHEN LESS THAN 2.0 MCG/ML (10.0-30.0); ALT (GPT) 50 U/L (12-78)
--- NOTE | 2016-10-14 22:23 | PD ---
HPI Chief Complaint: OD/ Ingestion Time Seen by Provider: 19:45 Travel History International Travel<30 days: No Contact w/Intl Traveler<30days: No Traveled to known affect area: No History of Present Illness HPI 45-year-old male arrives to the ER by EMS. He reports ingesting 30 tablets of Lexapro and 8 tablets of Remeron approximately one hour or so prior to arrival to the ER. He also reports drinking 1 L of vodka and multiple cans of 4 loco. He then went to the police station. He arrives as a Palencia act. His only complaint is pain in the knee and pain in the left ribs related to in-line hockey. He states he drinks every day. He denies HI. PFSH Past Medical History Anxiety: Yes Depression: Yes Cardiovascular Problems: Yes (PALPITATIONS ) COPD: Yes Respiratory: Yes (COPD) Seizures: Yes (ETOH WITHDRAWL ) Tetanus Vaccination: < 5 Years Influenza Vaccination: No Social History Alcohol Use: Yes (1 litter vodka toda) Tobacco Use: Yes (1 1/2 PPD) Substance Use: Yes (ETOH DAILY, COCAINE) Allergies-Medications (Allergen,Severity, Reaction): Coded Allergies: Paxil (Verified Allergy, Intermediate, Confusion, 09/25/16) Reported Meds & Prescriptions Reported Meds & Active Scripts Active Reported Remeron (Mirtazapine) 15 Mg Tab 15 Mg PO HS Lexapro (Escitalopram Oxalate) 10 Mg Tab 10 Mg PO DAILY Review of Systems Except as stated in HPI: all other systems reviewed are Neg General / Constitutional: No: Fever Musculoskeletal: Positive: Pain Psychiatric: Positive: Depression, Suicidal Ideations, Substance Abuse Physical Exam Narrative GENERAL: 45 yo M, WNWD, depressed affect SKIN: Warm and dry. HEAD: Atraumatic. Normocephalic. EYES: Pupils equal and round. No scleral icterus. No injection or drainage. ENT: No nasal bleeding or discharge. Mucous membranes pink and moist. NECK: Trachea midline. No JVD. CARDIOVASCULAR: Tachycardia. Regular rhythm. RESPIRATORY: No accessory muscle use. Clear to auscultation. Breath sounds equal bilaterally. GASTROINTESTINAL: Abdomen soft, non-tender, nondistended. Hepatic and splenic margins not palpable. MUSCULOSKELETAL: No obvious deformities. No clubbing. No cyanosis. No edema. NEUROLOGICAL: Awake and alert. No obvious cranial nerve deficits. Motor grossly within normal limits. Normal speech. PSYCHIATRIC: EtOH on breath. Apparent SI. Data Data Last Documented VS Vital Signs Date Time Temp Pulse Resp B/P Pulse Ox O2 Delivery O2 Flow Rate FiO2 10/14/16 21:45 123 20 115/56 94 Nasal Cannula 2 10/14/16 19:30 98.7 Vs reviewed Orders Electrocardiogram (10/14/16 19:45) Complete Blood Count With Diff (10/14/16 19:45) Comprehensive Metabolic Panel (10/14/16 19:45) Prothrombin Time / Inr (Pt) (10/14/16 19:45) Act Partial Throm Time (Ptt) (10/14/16 19:45) Urinalysis - C+S If Indicated (10/14/16 19:45) Arterial Blood Gas (Abg) (10/14/16 19:45) Iv Access Insert/Monitor (10/14/16 19:45) Ecg Monitoring (10/14/16 19:45) Oximetry (10/14/16 19:45) Psych Screen (10/14/16 19:45) Charcoal Activated Liq (Actidose-Aqua Li (10/14/16 19:45) Sodium Chloride 0.9% Flush (Ns Flush) (10/14/16 19:45) Sodium Chlor 0.9% 1000 Ml Inj (Ns 1000 M (10/14/16 19:45) Call Poison Control (10/14/16 19:45) Drug Screen, Random Urine (10/14/16 19:45) Alcohol (Ethanol) (10/14/16 19:45) Salicylates (Aspirin) (10/14/16 19:45) Tylenol (Acetaminophen) (10/14/16 19:45) Labs Laboratory Tests Test 10/14/16 10/14/16 20:00 20:10 Blood Gas Puncture Site RT RADIAL Blood Gas Patient Temperature 98.6 Blood Gas HCO3 21 mmol/L Blood Gas Base Excess -3.8 mmol/L Blood Gas Oxygen Saturation 83 % Arterial Blood pH 7.33 Arterial Blood Partial 42 mmHg Pressure CO2 Arterial Blood Partial 79 mmHG Pressure O2 Arterial Blood Oxygen Content 18.2 Vol % Arterial Blood 10.2 % Carboxyhemoglobin Arterial Blood Methemoglobin 2.8 % Blood Gas Hemoglobin 15.6 G/DL Oxygen Delivery Device NASAL CANNULA Blood Gas Liter Flow 1 L/M White Blood Count 9.9 TH/MM3 Red Blood Count 4.90 MIL/MM3 Hemoglobin 16.4 GM/DL Hematocrit 46.4 % Mean Corpuscular Volume 94.8 FL Mean Corpuscular Hemoglobin 33.5 PG Mean Corpuscular Hemoglobin 35.4 % Concent Red Cell Distribution Width 15.2 % Platelet Count 234 TH/MM3 Mean Platelet Volume 8.8 FL Neutrophils (%) (Auto) 52.6 % Lymphocytes (%) (Auto) 35.6 % Monocytes (%) (Auto) 8.3 % Eosinophils (%) (Auto) 2.9 % Basophils (%) (Auto) 0.6 % Neutrophils # (Auto) 5.2 TH/MM3 Lymphocytes # (Auto) 3.5 TH/MM3 Monocytes # (Auto) 0.8 TH/MM3 Eosinophils # (Auto) 0.3 TH/MM3 Basophils # (Auto) 0.1 TH/MM3 CBC Comment DIFF FINAL Differential Comment Prothrombin Time 9.8 SEC Prothromb Time International 0.9 RATIO Ratio Activated Partial 25.9 SEC Thromboplast Time Sodium Level 141 MEQ/L Potassium Level 4.4 MEQ/L Chloride Level 107 MEQ/L Carbon Dioxide Level 21.2 MEQ/L Anion Gap 13 MEQ/L Blood Urea Nitrogen 23 MG/DL Creatinine 0.93 MG/DL Estimat Glomerular Filtration 87 ML/MIN Rate Random Glucose 121 MG/DL Calcium Level 8.0 MG/DL Total Bilirubin 0.4 MG/DL Aspartate Amino Transf 51 U/L (AST/SGOT) Alanine Aminotransferase 50 U/L (ALT/SGPT) Alkaline Phosphatase 85 U/L Total Protein 6.9 GM/DL Albumin 3.4 GM/DL Salicylates Level LESS THAN 1.7 MG/DL Acetaminophen Level LESS THAN 2.0 MCG/ML Ethyl Alcohol Level 230 MG/DL [facility] Medical Decision Making Medical Screen Exam Complete: Yes Emergency Medical Condition: Yes Differential Diagnosis Altered mental status/psychosis due to infection/environmental exposure/ metabolic abnormality, polypharmacy, alcohol abuse/intoxication, illicit or prescribed drug abuse, malingering/secondary gain, non-organic psychiatric disease Narrative Course CBC & BMP Diagram 10/14/16 20:10 LFTs essentially normal Alcohol 230 Salicylates and acetaminophen both negative Coags 9.8 / 0.9 / 25.9 EKG shows a sinus tachycardia with a rate of 122 and a KS interval of 119 normal axis The history of present illness, ROS, physical exam, review of records and medical workup performed for today's visit have reasonably safely excluded organic etiologies for the patient's presenting complaint. True medical emergency has also been reasonably safely ruled out. We will continue to monitor the patient carefully in the ER until time of evaluation by the psychiatry service. We are available for any additional medical assistance if needed during the patient's ER course. Disposition per discretion of psychiatry is appreciated. Diagnosis Primary Impression: Intentional SSRI (selective serotonin reuptake inhibitor) overdose Qualified Code: T43.222A - Intentional SSRI (selective serotonin reuptake inhibitor) overdose, initial encounter Additional Impressions: Alcohol abuse Suicidal behavior Qualified Code: T14.91 - Suicidal behavior with attempted self-injury Moe Ferrari MD Oct 14, 2016 22:23
[2016-10-14 22:26] VITALS: BP 137/61; PULSE 107; RESP 18; O2SAT 94
[2016-10-14 23:30] VITALS: BP 122/68; PULSE 98; RESP 18; O2SAT 94
[2016-10-15 01:40] VITALS: BP 114/58; PULSE 98; RESP 18; O2SAT 94
[2016-10-15 01:44] LABS: BLOOD, URINE NEG (NEG); GLUCOSE,URINE NEG (NEG); KETONE, URINE TRACE mg/dL (NEG); NITRITE,URINE NEG (NEG); PH, URINE 5.5 (5.0-8.5); URINE COLOR YELLOW (YELLW/STRAW)
[2016-10-15 01:53] LABS: COMMENT (UR) CULT NOT INDICATED; CULTURE IF INDICATED CULT NOT INDICATED
[2016-10-15 02:50] LABS: AMPHETAMINE, URINE NEG (NEG); BARBITURATES, URINE NEG (NEG); COCAINE, URINE NEG (NEG)
[2016-10-15 06:41] VITALS: BP 148/95; PULSE 75; RESP 18; O2SAT 97
[2016-10-15 08:09] VITALS: BP 127/96; PULSE 72; RESP 18; O2SAT 96
[2016-10-15 10:09] VITALS: BP 150/84; PULSE 92; RESP 18; O2SAT 97
[2016-10-15] MEDS ORDERED: ACETAMINOPHEN 325 MG TAB PO ONE (10:15)
[2016-10-15] MEDS ORDERED: LORazepam 0.5 MG TAB PO ONE (10:15)
[2016-10-15 12:19] VITALS: BP 131/81; PULSE 73; RESP 18; TEMP 98.7; O2SAT 97
[2016-10-15] MEDS ORDERED: LORazepam 1 MG TAB PO PRN (12:45)
[2016-10-15] MEDS ORDERED: LORazepam 2 MG/ML VIAL IV PUSH PRN ×4 (12:45)
[2016-10-15] MEDS ORDERED: LORazepam 2 MG TAB PO PRN (12:45)
[2016-10-15 14:47] VITALS: BP 143/78; PULSE 68; RESP 18; O2SAT 97
--- NOTE | 2016-10-15 15:15 | EKG ---
Date Performed: 10/14/2016 Time Performed: 21:50:54 PTAGE: 45 years EKG: SINUS TACHYCARDIA WITH SHORT MT INTERVAL Since previous tracing, no significant change note d ABNORMAL RHYTHM ECG PREVIOUS TRACING : 10/14/2016 19.48 DOCTOR: Jason Haas Interpretating Date/Time 10/15/2016 15:13:40
--- NOTE | 2016-10-15 15:15 | EKG ---
Date Performed: 10/14/2016 Time Performed: 19:48:45 PTAGE: 45 years EKG: SINUS TACHYCARDIA WITH SHORT [place] INTERVAL ABNORMAL RHYTHM ECG NO PREVIOUS TRACING DOCTOR: Jason Haas Interpretating Date/Time 10/15/2016 15:13:24
--- NOTE | 2016-10-15 16:02 | PD ---
History of Present Illness Chief Complaint: OD/ Ingestion Time Seen by Provider: 15:45 Travel History International Travel<30 Days: No Contact w/Intl Traveler<30days: No Known affected area: No Legal Status Legal Status: Palencia Act Palencia Act Signed By: Deysi Medina History of Present Illness: History of Present Illness HPI 45-year-old male with hx of alcohol abuse who arrives to the ER by EMS He is under a BA and it reads as follows; " Sobriety has been too hard for Patrick so he showed up at the police department and stated that he overdosed on meds and wanted to end it all." As per Ed documentation he reported that he ingested 30 tablets of Lexapro and 8 tablets of Remeron approximately one hour or so prior to arrival to the ER. He also reports drinking 1 L of vodka and multiple cans of 4 loco. Patient was medically cleared and he then was monitored in J pod. He presented with BAL of 230 and positive for benzos. Record reviewed. This patient has been evaluated at this ED 6 times in 2017. he has been sent to [facility] for detox several times and his last visit there was on Oct 12, 2016. Patient is seen in J pod. He has been awake and ambulating several times before I meet with him. He is alert, oriented, calm and cooperative. His speech is clear and logical. No yulia and no psychosis. He states " I am not depressed and I am not suicidal . I was drinking heavily and I guess took too many pills. I immediately went to the police. I have a job interview in the morning and I want to be discharged. I have too much free time on my hands and I guess that's why I drink". Patient is minimizing his alcohol use even when I point out to him that he has been here in Ed multiple times. He states " It's the police who keep bringing me here". PFSH Past Medical History Anxiety: Yes Depression: Yes Cardiovascular Problems: Yes (PALPITATIONS ) COPD: Yes Respiratory: Yes (COPD) Seizures: Yes (ETOH WITHDRAWL ) Tetanus Vaccination: < 5 Years Influenza Vaccination: No Psychiatric History Psychiatric History Hx Psychiatric Treatment: HX OF ANXIETY, PTSD AND DEPRESSION History of Inpatient Treatment: Yes ([facility]) Guns or firearms in home: No Social History Single male. Lives in [facility] by himself. 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 Hx Alcohol Use: Yes (1 litter vodka toda) Hx Tobacco Use: Yes (1 08/28 PPD) Hx Substance Use: Yes (ETOH DAILY, COCAINE) Substance Use Type: Alcohol, Nicotine/Cigarettes, Cocaine Hx of Substance Use Treatment: Yes Family Psychiatric History Negative Allergies-Medications (Allergen,Severity, Reaction): Coded Allergies: Paxil (Verified Allergy, Intermediate, Confusion, 09/25/16) Reported Meds & Prescriptions Reported Meds & Active Scripts Active Reported Remeron (Mirtazapine) 15 Mg Tab 15 Mg PO HS Lexapro (Escitalopram Oxalate) 10 Mg Tab 10 Mg PO DAILY Review of Systems Constitutional: DENIES: Diaphoretic episodes, Fatigue, Fever, Weight gain, Weight loss, Chills, Dizziness, Change in appetite, Night Sweats Endocrine: DENIES: Heat/cold intolerance, Polydipsia, Polyuria, Polyphagia Eyes: DENIES: Blurred vision, Diplopia, Eye inflammation, Eye pain, Vision loss , Photosensitivity, Double Vision Ears, nose, mouth, throat: DENIES: Tinnitus, Hearing loss, Vertigo, Nasal discharge, Oral lesions, Throat pain, Hoarseness, Ear Pain, Running Nose, Epistaxis, Sinus Pain, Toothache, Odynophagia Respiratory: DENIES: Apneas, Cough, Snoring, Wheezing, Hemoptysis, Sputum production, Shortness of breath Cardiovascular: DENIES: Chest pain, Palpitations, Syncope, Dyspnea on Exertion , PND, Lower Extremity Edema, Orthopnea, Claudication Gastrointestinal: COMPLAINS OF: Nausea Musculoskeletal: DENIES: Joint pain, Muscle aches, Stiffness, Joint Swelling, Back pain, Neck pain Integumentary: DENIES: Abnormal pigmentation, Nail changes, Pruritus, Rash Hematologic/lymphatic: DENIES: Bruising, Lymphadenopathy Immunologic/allergic: DENIES: Eczema, Urticaria Neurologic: DENIES: Abnormal gait, Headache, Localized weakness, Paresthesias, Seizures, Speech Problems, Tremor, Poor Balance Psychiatric: DENIES: Anxiety, Confusion, Mood changes, Depression, Hallucinations, Agitation, Suicidal Ideation, Homicidal Ideation, Delusions Exam Alert: Yes [place]: Person (ox4) Mood: Calm Affect: Euthymic Speech: Clear, Logical Eye Contact: Normal Memory Intact: Comment (not impaired) Hallucinations: Other (negative) Delusions: No Suicidal: Ideation (denies any) Homicidal: Ideation (denies any) Insight/Judgement poor. poor MDM Medical Decision Making Medical Record Reviewed: Yes Assessment/Plan 45 year old male with history of alcohol dependence who presents under a BA after he reported that he took some pills. Patient walked himself to the police dept for help. He was intoxicated at the time. At this time he is clinically sober . He denies any intent to harm himself and is requesting discharge as he has a job interview tomorrow. I have counseled him regarding his continued use of alcohol and his lack of control over his use. At this time patient is at a precontemplative stage and is minimizing his use. I have counseled him and he does say that he has begun to attend AA and has support. Lift BA. Does not meet criteria. Orders Electrocardiogram (10/14/16 19:45) Complete Blood Count With Diff (10/14/16 19:45) Comprehensive Metabolic Panel (10/14/16 19:45) Prothrombin Time / Inr (Pt) (10/14/16 19:45) Act Partial Throm Time (Ptt) (10/14/16 19:45) Urinalysis - C+S If Indicated (10/14/16 19:45) Arterial Blood Gas (Abg) (10/14/16 19:45) Iv Access Insert/Monitor (10/14/16 19:45) Ecg Monitoring (10/14/16 19:45) Oximetry (10/14/16 19:45) Psych Screen (10/14/16 19:45) Charcoal Activated Liq (Actidose-Aqua Li (10/14/16 19:45) Sodium Chloride 0.9% Flush (Ns Flush) (10/14/16 19:45) Sodium Chlor 0.9% 1000 Ml Inj (Ns 1000 M (10/14/16 19:45) Call Poison Control (10/14/16 19:45) Drug Screen, Random Urine (10/14/16 19:45) Alcohol (Ethanol) (10/14/16 19:45) Salicylates (Aspirin) (10/14/16 19:45) Tylenol (Acetaminophen) (10/14/16 19:45) Diet Regular Basic (10/15/16 Breakfast) Dietary (Dietitian) Consult (10/15/16 ) Electrocardiogram (10/14/16 21:50) Acetaminophen (Tylenol) (10/15/16 10:15) Lorazepam (Ativan) (10/15/16 10:15) Alcohol Withdrawal Asmt-Ciwa [id number] (10/15/16 12:41) Lorazepam (Ativan) (10/15/16 12:45) Lorazepam Inj (Ativan Inj) (10/15/16 12:45) Lorazepam (Ativan) (10/15/16 12:45) Lorazepam Inj (Ativan Inj) (10/15/16 12:45) Lorazepam Inj (Ativan Inj) (10/15/16 12:45) Lorazepam Inj (Ativan Inj) (10/15/16 12:45) Diet Regular Basic (10/15/16 Dinner) Results Vital Signs Date Time Temp Pulse Resp B/P Pulse Ox O2 Delivery O2 Flow Rate FiO2 10/15/16 14:47 68 18 143/78 97 Room Air 10/15/16 12:19 98.7 73 18 131/81 97 Room Air 10/15/16 10:09 92 18 150/84 97 Room Air 10/15/16 08:09 72 18 127/96 96 Room Air 10/15/16 06:41 75 18 148/95 97 Room Air 10/15/16 01:40 98 18 114/58 94 Room Air 10/14/16 23:30 98 18 122/68 94 Room Air 10/14/16 22:26 107 18 137/61 94 Room Air 10/14/16 21:45 123 20 115/56 94 Nasal Cannula 2 10/14/16 21:17 95 Nasal Cannula 2 10/14/16 20:30 126 18 116/58 98 Nasal Cannula 2 10/14/16 20:00 125 18 129/64 94 Nasal Cannula 2 10/14/16 19:30 98.7 121 20 129/69 91 Laboratory Tests Test 10/14/16 10/14/16 10/15/16 20:00 20:10 01:30 Blood Gas Puncture Site RT RADIAL Blood Gas Patient Temperature 98.6 Blood Gas HCO3 21 Blood Gas Base Excess -3.8 Blood Gas Oxygen Saturation 83 Arterial Blood pH 7.33 Arterial Blood Partial 42 Pressure CO2 Arterial Blood Partial 79 Pressure O2 Arterial Blood Oxygen Content 18.2 Arterial Blood 10.2 Carboxyhemoglobin Arterial Blood Methemoglobin 2.8 Blood Gas Hemoglobin 15.6 Oxygen Delivery Device NASAL CANNULA Blood Gas Liter Flow 1 White Blood Count 9.9 Red Blood Count 4.90 Hemoglobin 16.4 Hematocrit 46.4 Mean Corpuscular Volume 94.8 Mean Corpuscular Hemoglobin 33.5 Mean Corpuscular Hemoglobin 35.4 Concent Red Cell Distribution Width 15.2 Platelet Count 234 Mean Platelet Volume 8.8 Neutrophils (%) (Auto) 52.6 Lymphocytes (%) (Auto) 35.6 Monocytes (%) (Auto) 8.3 Eosinophils (%) (Auto) 2.9 Basophils (%) (Auto) 0.6 Neutrophils # (Auto) 5.2 Lymphocytes # (Auto) 3.5 Monocytes # (Auto) 0.8 Eosinophils # (Auto) 0.3 Basophils # (Auto) 0.1 CBC Comment DIFF FINAL Differential Comment Prothrombin Time 9.8 Prothromb Time International 0.9 Ratio Activated Partial 25.9 Thromboplast Time Sodium Level 141 Potassium Level 4.4 Chloride Level 107 Carbon Dioxide Level 21.2 Anion Gap 13 Blood Urea Nitrogen 23 Creatinine 0.93 Estimat Glomerular Filtration 87 Rate Random Glucose 121 Calcium Level 8.0 Total Bilirubin 0.4 Aspartate Amino Transf 51 (AST/SGOT) Alanine Aminotransferase 50 (ALT/SGPT) Alkaline Phosphatase 85 Total Protein 6.9 Albumin 3.4 Salicylates Level LESS THAN 1.7 Acetaminophen Level LESS THAN 2.0 Ethyl Alcohol Level 230 Urine Color YELLOW Urine Turbidity CLEAR Urine pH 5.5 Urine Specific [place] 1.022 Urine Protein NEG Urine Glucose (UA) NEG Urine Ketones TRACE Urine Occult Blood NEG Urine Nitrite NEG Urine Bilirubin NEG Urine Urobilinogen LESS THAN 2.0 Urine Leukocyte Esterase NEG Urine WBC 1 Microscopic Urinalysis Comment CULT NOT INDICATED Urine Opiates Screen NEG Urine Barbiturates Screen NEG Urine Amphetamines Screen NEG Urine Benzodiazepines Screen POS Urine Cocaine Screen NEG Urine Cannabinoids Screen NEG Diagnosis Primary Impression: Intentional SSRI (selective serotonin reuptake inhibitor) overdose Additional Impressions: Alcohol abuse Alcohol dependence Psychiatrically Cleared: Yes Referrals: [facility] (Out patient) call for appointment Departure Forms: Tests/Procedures Patient Instructions: General Instructions, Alcohol Intoxication (ED), Alcohol Dependence (ED) Disposition: 01 DISCHARGE HOME Condition: Stable Problem Qualifiers Primary Impression: Intentional SSRI (selective serotonin reuptake inhibitor) overdose Qualified Code: T43.222A - Intentional SSRI (selective serotonin reuptake inhibitor) overdose, initial encounter Additional Impressions: Alcohol dependence Qualified Code: F10.20 - Uncomplicated alcohol dependence Lakeshia Kirk Oct 15, 2016 16:02
[2016-10-16] MEDS ORDERED: CARA1TAB6 PO (13:31)
[2016-10-16] MEDS ORDERED: PANT20 PO (13:31)
== END 2016-10-15 16:30 | disposition home or self-care (01) ==
LOC: NEPE 19:29 → NEPJ 10-15 16:30
DX: T43.222A Poisoning by selective serotonin reuptake inhibitors, intentional self-harm, initial encounter (principal); F10.129 Alcohol abuse with intoxication, unspecified; R00.0 Tachycardia, unspecified; J44.9 Chronic obstructive pulmonary disease, unspecified; F17.210 Nicotine dependence, cigarettes, uncomplicated; R00.2 Palpitations
CPT/HCPCS: 36600; 80053; 80307; 80320; 81001; 82805; 85025; 85610; 85730; 93005; 99284; J7030; 80329; G0480

== ENCOUNTER 2016-10-16 10:29 | Emergency (ER) | payer SELFPAY ==
[~2016-10-16] VITALS: Ht 172.7 cm; Wt 69.0 kg
[~2016-10-16 10:29] MED LIST changes: +LEXA10TA PO; -LEXA20TA PO; +REME15TA PO; -REME30TA PO; -ZITHTAB PO
[2016-10-16 10:33] VITALS: BP 111/72; PULSE 102; RESP 20; TEMP 97.8; O2SAT 98
[2016-10-16] MEDS ORDERED: ONDANSETRON HCL 4 MG/2 ML VIAL IVP ONE (10:45)
[2016-10-16] MEDS ORDERED: PANTOPRAZOLE SODIUM 40 MG VIAL IVP ONE (10:45)
[2016-10-16] MEDS ORDERED: THIAMINE INJ 100 MG in SODIUM CHLORIDE 0.9% INJ 100 ML IV ONE (10:45)
[2016-10-16] MEDS ORDERED: LORazepam 2 MG/ML VIAL IV PUSH ONE (10:45)
[2016-10-16 10:48] VITALS: BP 111/72; PULSE 105; RESP 20; O2SAT 97
--- NOTE | 2016-10-16 10:54 | PD ---
HPI Chief Complaint: Abdominal Pain Time Seen by Provider: 10:37 Travel History International Travel<30 days: No Contact w/Intl Traveler<30days: No Traveled to known affect area: No History of Present Illness HPI 45 years old male complains of abdominal pain with nausea vomiting. Patient states that the abdominal pain started about 2 weeks ago and got worse today. Patient states that he has intermittent nausea vomiting for the past few days. Patient has history of alcohol abuse. Last drink was this morning. Patient usually drinks vodka and for local. Patient states that he drank for local this morning. Patient denies any illicit drug use. Patient states abdominal pain is sharp pain localized to left upper quadrant of the abdomen. Patient denies any pain radiation. Patient denies any dysuria or frequency. Patient denies any fever chills. Patient was seen in emergency room 2 days ago after he ingested 30 tablets of Lexapro and 8 tablets of Remeron. Patient was [place] acted. Patient was discharged yesterday. Patient has history of EtOH abuse, COPD, substance abuse including cocaine. Patient also has history anxiety and depression, and PTSD. PFSH Past Medical History Anxiety: Yes Depression: Yes Cardiovascular Problems: Yes (PALPITATIONS ) COPD: Yes Respiratory: Yes (COPD) Seizures: Yes (ETOH WITHDRAWL ) Social History Alcohol Use: Yes (1 litter vodka toda) Tobacco Use: Yes (1 1/2 PPD) Substance Use: Yes (ETOH DAILY, COCAINE) Allergies-Medications (Allergen,Severity, Reaction): Coded Allergies: Paxil (Verified Allergy, Intermediate, Confusion, 09/25/16) Reported Meds & Prescriptions Reported Meds & Active Scripts Active Reported Remeron (Mirtazapine) 15 Mg Tab 15 Mg PO HS Lexapro (Escitalopram Oxalate) 10 Mg Tab 10 Mg PO DAILY Review of Systems General / Constitutional: No: Fever Eyes: No: Visual changes HENT: No: Headaches Cardiovascular: No: Chest Pain or Discomfort Respiratory: No: Shortness of Breath Gastrointestinal: Positive: Nausea, Vomiting, Abdominal Pain Genitourinary: No: Dysuria Musculoskeletal: No: Pain Skin: No Rash Neurologic: No: Weakness Psychiatric: No: Depression Endocrine: No: Polydipsia Hematologic/Lymphatic: No: Easy Bruising Physical Exam Narrative GENERAL: Well-nourished, well-developed patient. SKIN: Warm and dry. HEAD: Normocephalic. EYES: No scleral icterus. No injection or drainage. NECK: Supple, trachea midline. No JVD or lymphadenopathy. CARDIOVASCULAR: Regular rate and rhythm without murmurs, gallops, or rubs. RESPIRATORY: Breath sounds equal bilaterally. No accessory muscle use. GASTROINTESTINAL: Abdomen soft, nondistended. Patient has mild tenderness on palpation left upper quadrant of the abdomen. No rebound tenderness. No mass. MUSCULOSKELETAL: No cyanosis, or edema. BACK: Nontender without obvious deformity. No CVA tenderness. Neurologic exam: Patient's awake and alert oriented 3. No obvious focal neurological deficit. Data Data Last Documented VS Vital Signs Date Time Temp Pulse Resp B/P Pulse Ox O2 Delivery O2 Flow Rate FiO2 10/16/16 10:56 103 20 111/72 95 Nasal Cannula 2 10/16/16 10:33 97.8 Orders Complete Blood Count With Diff (10/16/16 10:45) Comprehensive Metabolic Panel (10/16/16 10:45) Lipase (10/16/16 10:45) Prothrombin Time / Inr (Pt) (10/16/16 10:45) Act Partial Throm Time (Ptt) (10/16/16 10:45) Urinalysis - C+S If Indicated (10/16/16 10:45) Iv Access Insert/Monitor (10/16/16 10:45) Ecg Monitoring (10/16/16 10:45) Oximetry (10/16/16 10:45) Ondansetron Inj (Zofran Inj) (10/16/16 10:45) Pantoprazole Inj (Protonix Inj) (10/16/16 10:45) Sodium Chlor 0.9% 1000 Ml Inj (Ns 1000 M (10/16/16 10:45) Thiamine Inj (Thiamine Inj) (10/16/16 10:45) Lorazepam Inj (Ativan Inj) (10/16/16 10:45) Alcohol (Ethanol) (10/16/16 10:47) Al-Mag Hy-Si 40-40-4 Mg/Ml Liq (Mag-Al P (10/16/16 11:00) Opscr-Huhocp-Tmbnpp-Pb Liq ( Liq (10/16/16 11:00) Chest, Single Ap (10/16/16 10:53) Labs Laboratory Tests Test 10/16/16 10/16/16 10/16/16 10:50 11:30 11:36 White Blood Count 9.0 TH/MM3 Red Blood Count 4.71 MIL/MM3 Hemoglobin 15.4 GM/DL Hematocrit 44.1 % Mean Corpuscular Volume 93.6 FL Mean Corpuscular Hemoglobin 32.6 PG Mean Corpuscular Hemoglobin 34.9 % Concent Red Cell Distribution Width 14.9 % Platelet Count 201 TH/MM3 Mean Platelet Volume 8.5 FL Neutrophils (%) (Auto) 48.7 % Lymphocytes (%) (Auto) 38.6 % Monocytes (%) (Auto) 8.0 % Eosinophils (%) (Auto) 3.5 % Basophils (%) (Auto) 1.2 % Neutrophils # (Auto) 4.4 TH/MM3 Lymphocytes # (Auto) 3.5 TH/MM3 Monocytes # (Auto) 0.7 TH/MM3 Eosinophils # (Auto) 0.3 TH/MM3 Basophils # (Auto) 0.1 TH/MM3 CBC Comment DIFF FINAL Differential Comment Prothrombin Time 11.1 SEC Prothromb Time International 1.0 RATIO Ratio Activated Partial 26.4 SEC Thromboplast Time Sodium Level 143 MEQ/L Potassium Level 3.5 MEQ/L Chloride Level 107 MEQ/L Carbon Dioxide Level 24.9 MEQ/L Anion Gap 11 MEQ/L Blood Urea Nitrogen 8 MG/DL Creatinine 0.71 MG/DL Estimat Glomerular Filtration 119 ML/MIN Rate Random Glucose 131 MG/DL Calcium Level 8.0 MG/DL Total Bilirubin 0.7 MG/DL Aspartate Amino Transf 35 U/L (AST/SGOT) Alanine Aminotransferase 44 U/L (ALT/SGPT) Alkaline Phosphatase 68 U/L Total Protein 6.3 GM/DL Albumin 3.4 GM/DL Lipase 106 U/L Ethyl Alcohol Level 259 MG/DL Urine Color YELLOW Urine Turbidity CLEAR Urine pH 6.0 Urine Specific [place] 1.013 Urine Protein NEG mg/dL Urine Glucose (UA) NEG mg/dL Urine Ketones NEG mg/dL Urine Occult Blood NEG Urine Nitrite NEG Urine Bilirubin NEG Urine Urobilinogen LESS THAN 2.0 MG/DL Urine Leukocyte Esterase NEG Urine WBC LESS THAN 1 /hpf Microscopic Urinalysis Comment CULT NOT INDICATED MDM Medical Decision Making Medical Screen Exam Complete: Yes Emergency Medical Condition: Yes Interpretation(s) 1321 PM. Last Impressions Chest X-Ray 10/16/16 1053 Signed Impressions: Service Date/Time: Sunday, October 16, 2016 11:10 - CONCLUSION: No acute disease. Harman Mcgregor Jr., MD 1321 PM. CBC within normal limit. CMP within normal limit. Alcohol 259. UA is negative. Differential Diagnosis Differential diagnosis including gastritis, PUD, pink otitis, cholecystitis, colitis, UTI, pyelonephritis. Narrative Course 45 years old male with abdominal pain, nausea vomiting. History of EtOH abuse. Normal saline solution 1 25 cc an hour. Protonix 40 mg IV. Maalox 30 cc by mouth. 10 cc by mouth. Zofran 4 g IV. Thiamine 100 mg IV. 1328 PM. Patient is feeling better. Patient steady on his feet. Patient will be discharged. Diagnosis Primary Impression: Gastritis Qualified Code: K29.00 - Acute gastritis without hemorrhage, unspecified gastritis type Additional Impression: Alcohol intoxication Qualified Code: F10.120 - Alcohol intoxication, uncomplicated Patient Instructions: General Instructions Additional Instructions: Protonix as directed. Advised [facility] for alcohol problem. Follow-up with personal physician and GI specialist. Return if worse. Med/Other Pt SpecificInfo: Prescription(s) given Scripts Sucralfate (Carafate)1 Gm Tab1 Gm PO QID #120 TAB Ref 0 On empty stomach Prov:Konrad Mcghee MD 10/16/16 Pantoprazole (Protonix)20 Mg Tab20 Mg PO DAILY #30 TAB Prov:Konrad Mcghee MD 10/16/16 Disposition: 01 DISCHARGE HOME Condition: Stable Konrad Mcghee MD Oct 16, 2016 10:54
[2016-10-16 10:56] VITALS: BP 111/72; PULSE 103; RESP 20; O2SAT 95
[2016-10-16] MEDS ORDERED: ALUMINUM/MAGNESIUM/SIMETH 30 ML CUP PO ONE (11:00)
[2016-10-16] MEDS ORDERED: ATROPINE/SCOPOLAM/HYOSCYAM/PB ELIXIR 10 ML CUP PO ONE (11:00)
[2016-10-16 11:21] LABS: AUTOMATED NEUTROPHIL # 4.4 TH/MM3 (1.8-7.7); BASOPHIL # 0.1 TH/MM3 (0-0.2); BASOPHIL % 1.2 % (0.0-2.0); EOSINOPHIL # 0.3 TH/MM3 (0-0.4); EOSINOPHIL % 3.5 % (0.0-4.0); HEMATOCRIT 44.1 % (39.0-51.0); HEMO FLAGS DIFF FINAL; LYMPH % 38.6 % (9.0-44.0); LYMPHOCYTE # 3.5 TH/MM3 (1.0-4.8); MEAN CELL VOLUME 93.6 FL (80.0-100.0); MEAN CORPUSCULAR HEMOGLOBIN 32.6 PG (27.0-34.0); MEAN CORPUSCULAR HGB CONC 34.9 % (32.0-36.0); NEUT % 48.7 % (16.0-70.0); PLATELET COUNT 201 TH/MM3 (150-450); RED BLOOD COUNT 4.71 MIL/MM3 (4.50-5.90); RED CELL DISTRIBUTION WIDTH 14.9 % (11.6-17.2)
[2016-10-16 11:31] LABS: APTT (PATIENT) 26.4 SEC (24.3-30.1); PROTHROMBIN TIME - PATIENT 11.1 SEC (9.8-11.6)
--- NOTE | 2016-10-16 11:31 | RADRPT ---
EXAM DATE/TIME: 10/16/2016 11:10 [facility] COMPARISON: CHEST SINGLE AP, September 25, 2016, 16:56. INDICATIONS : Short of breath. MEDICAL HISTORY : Seizures. Cardiovascular disease. SURGICAL HISTORY : None. ENCOUNTER: Initial ACUITY: 1 day PAIN SCORE: 0/10 LOCATION: chest FINDINGS: A single view of the chest demonstrates the lungs to be symmetrically aerated without evidence of mas s, infiltrate or effusion. The cardiomediastinal contours are unremarkable. Osseous structures are intact. CONCLUSION: No acute disease. Harman Mcgregor Jr., MD on October 16, 2016 at 11:30 Board Certified Radiologist. This report was verified electronically.
[2016-10-16 11:39] LABS: ALKALINE PHOSPHATASE 68 U/L (45-117); TOTAL BILIRUBIN ADULT 0.7 MG/DL (0.2-1.0)
[2016-10-16 11:46] LABS: BLOOD, URINE NEG (NEG); COMMENT (UR) CULT NOT INDICATED; CULTURE IF INDICATED CULT NOT INDICATED; GLUCOSE,URINE NEG (NEG); KETONE, URINE NEG (NEG); NITRITE,URINE NEG (NEG); URINE COLOR YELLOW (YELLW/STRAW)
[2016-10-16 11:51] LABS: ALT (GPT) 44 U/L (12-78); ANION GAP 11 MEQ/L (5-15); AST (GOT) 35 U/L (15-37); BICARBONATE 24.9 MEQ/L (21.0-32.0); BLOOD UREA NITROGEN 8 MG/DL (7-18); CHLORIDE 107 MEQ/L (98-107); GLOMERULAR FILTRATION RATE 119 ML/MIN (>89); POTASSIUM 3.5 MEQ/L (3.5-5.1); SODIUM (NA) 143 MEQ/L (136-145)
[2016-10-16] MEDS: SODIUM CHLOR 0.9% 1000 ML INJ 1,000 ML IV SCH ×2 (11:58→12:33)
[2016-10-16] MEDS ORDERED: PANT20 PO (13:31)
[2016-10-16] MEDS ORDERED: CARA1TAB6 PO (13:31)
== END 2016-10-16 13:47 | disposition home or self-care (01) ==
LOC: NEPC 10:29
DX: K29.00 Acute gastritis without bleeding (principal); F10.120 Alcohol abuse with intoxication, uncomplicated; R11.2 Nausea with vomiting, unspecified; F17.200 Nicotine dependence, unspecified, uncomplicated; Z86.59 Personal history of other mental and behavioral disorders; Z86.79 Personal history of other diseases of the circulatory system; Z87.09 Personal history of other diseases of the respiratory system; Z86.69 Personal history of other diseases of the nervous system and sense organs
CPT/HCPCS: 71010; 80053; 80320; 81001; 83690; 85025; 85610; 85730; 96365; 96366; 96375; 99284; C9113; J2060; J2405; J3411; J7030

== ENCOUNTER 2016-10-16 19:23 | Emergency (ER) | payer SELFPAY ==
[~2016-10-16] VITALS: Ht 172.7 cm; Wt 68.0 kg
[~2016-10-16 19:23] MED LIST changes: +CARA1TAB6 PO; +PANT20 PO
[2016-10-16 19:30] VITALS: BP 143/97; PULSE 90; RESP 18; TEMP 98.3; O2SAT 96
--- NOTE | 2016-10-16 20:36 | RADRPT ---
EXAM DATE/TIME: 10/16/2016 20:09 [facility] COMPARISON: No previous studies available for comparison. INDICATIONS : Left knee pain after fall playing hockey. MEDICAL HISTORY : None. SURGICAL HISTORY : None. ENCOUNTER: Initial ACUITY: 1 day PAIN SCORE: 10/10 LOCATION: Left knee. FINDINGS: No fracture or subluxation of the left knee. There is mild osteoarthritis of the medial and patellofe moral compartments. No perceptible joint effusion. Extra-articular soft tissues are within normal desouza its. CONCLUSION: Intact left knee. Mild degenerative changes. Leopoldo Saldivar MD on October 16, 2016 at 20:34 Board Certified Radiologist. This report was verified electronically.
--- NOTE | 2016-10-16 20:38 | RADRPT ---
EXAM DATE/TIME: 10/16/2016 20:16 [facility] COMPARISON: CT BRAIN W/O CONTRAST, September 25, 2016, 17:02. INDICATIONS : Fall today. RADIATION DOSE: 49.38 CTDIvol (mGy) MEDICAL HISTORY : Cardiovascular disease. Seizures. SURGICAL HISTORY : None. ENCOUNTER: Initial ACUITY: 1 day PAIN SCALE: 5/10 LOCATION: Bilateral head TECHNIQUE: Multiple contiguous axial images were obtained of the head. Using automated exposure control and adj ustment of the mA and/or kV according to patient size, radiation dose was kept as low as reasonably a chievable to obtain optimal diagnostic quality images. FINDINGS: CEREBRUM: The ventricles are normal for age. No evidence of midline shift, mass lesion, hemorrhage or acute in farction. No extra-axial fluid collections are seen. POSTERIOR FOSSA: The cerebellum and brainstem are intact. The 4th ventricle is midline. The cerebellopontine angle i s unremarkable. EXTRACRANIAL: The visualized portion of the orbits is intact. SKULL: The calvaria is intact. No evidence of skull fracture. CONCLUSION: Negative noncontrast head CT. Leopoldo Saldivar MD on October 16, 2016 at 20:36 Board Certified Radiologist. This report was verified electronically.
--- NOTE | 2016-10-16 20:41 | RADRPT ---
EXAM DATE/TIME: 10/16/2016 20:16 [facility] COMPARISON: No previous studies available for comparison. INDICATIONS : Fall today. RADIATION DOSE: 42.76 CTDIvol (mGy) MEDICAL HISTORY : Seizures. Cardiovascular disease SURGICAL HISTORY : None. ENCOUNTER: Initial ACUITY: 1 day PAIN SCALE: 5/10 LOCATION: Bilateral neck TECHNIQUE: Volumetric scanning of the cervical spine was performed. Multiplanar reconstructions in the sagittal, coronal and oblique axial planes were performed. Using automated exposure control and adjustment o f the mA and/or kV according to patient size, radiation dose was kept as low as reasonably achievable to obtain optimal diagnostic quality images. FINDINGS: There is no fracture or subluxation of the cervical spine. Vertebral bodies have normal height. Small to moderate partly calcified and chronic appearing right paracentral disc protrusion seen at C4 /C5. There is moderate disc space narrowing and a small, broad posterior disc osteophyte complex and mild to moderate bilateral uncovertebral and facet osteoarthritis at C5/C6. There is mild bilateral forami nal stenosis, especially on the right. Similar but slightly milder findings are seen at C6/C7. CONCLUSION: Intact cervical spine. Degenerative changes as above. Leopoldo Saldivar MD on October 16, 2016 at 20:38 Board Certified Radiologist. This report was verified electronically.
--- NOTE | 2016-10-16 21:08 | PD ---
HPI Chief Complaint: Fall Time Seen by Provider: 19:37 Travel History International Travel<30 days: No Contact w/Intl Traveler<30days: No Traveled to known affect area: No History of Present Illness HPI Patient 45-year-old male presents emergency department after trip and fall. Patient was evaluated in the emergency department earlier today for abdominal pain with intoxication. Patient states she was walking down the street tripped and fell and hit his face. Denies any loss of consciousness abdominal pain chest pain shortness of breath extremity pain at this time. Patient was brought in by EMS in full spinal package. Does admit to drinking a bottle of vodka and multiple [employer] today. Patient states she is started to go into withdrawals and needs something for that. PFSH Past Medical History Anxiety: Yes Depression: Yes Cardiovascular Problems: Yes (PALPITATIONS ) COPD: Yes Diminished Hearing: No Respiratory: Yes (COPD) Seizures: Yes (ETOH WITHDRAWL ) Tetanus Vaccination: Unknown Influenza Vaccination: No Social History Alcohol Use: Yes Tobacco Use: Yes (2 PPD) Substance Use: Yes (ETOH DAILY, COCAINE(PT DENIES HX SAYS DOES)) Allergies-Medications (Allergen,Severity, Reaction): Coded Allergies: Paxil (Verified Allergy, Intermediate, Confusion, 10/17/16) Reported Meds & Prescriptions Reported Meds & Active Scripts Active Carafate (Sucralfate) 1 Gm Tab 1 Gm PO QID On empty stomach Protonix (Pantoprazole Sodium) 20 Mg Tab 20 Mg PO DAILY Reported Remeron (Mirtazapine) 15 Mg Tab 15 Mg PO HS Lexapro (Escitalopram Oxalate) 10 Mg Tab 10 Mg PO DAILY Review of Systems Except as stated in HPI: all other systems reviewed are Neg Physical Exam Narrative GENERAL: Well-developed well-nourished no apparent distress. Appears intoxicated. SKIN: Warm and dry. No bruises, no lacerations on his person. HEAD: Atraumatic. Normocephalic. No sheriff signs no raccoons eyes EYES: Pupils equal and round. No scleral icterus. No injection or drainage. ENT: No nasal bleeding or discharge. Mucous membranes pink and moist. NECK: Trachea midline. No JVD. CARDIOVASCULAR: Regular rate and rhythm. No murmur appreciated. RESPIRATORY: No accessory muscle use. Clear to auscultation. Breath sounds equal bilaterally. GASTROINTESTINAL: Abdomen soft, non-tender, nondistended. Hepatic and splenic margins not palpable. MUSCULOSKELETAL: No obvious deformities. No clubbing. No cyanosis. No edema. Upper extremities are atraumatic, lower extremities are atraumatic, pulses motor and sensory are intact distally in all 4 extremity is, range of motion is intact in all joints in upper and lower extremity's. Compartments are soft. Axial skeleton shows no tenderness on CTL or S spine. Pelvis is stable. NEUROLOGICAL: Awake and alert. No obvious cranial nerve deficits. Motor grossly within normal limits. Normal speech. PSYCHIATRIC: Appropriate mood and affect; insight and judgment normal. Data Data Last Documented VS Vital Signs Date Time Temp Pulse Resp B/P Pulse Ox O2 Delivery O2 Flow Rate FiO2 10/17/16 01:50 84 20 142/77 98 10/16/16 19:33 Room Air 10/16/16 19:[address] Brain W/O Iv Contrast(Rout) (10/16/16 ) Ct Cerv Spine W/O Contrast (10/16/16 ) Knee, Complete (4vws) (10/16/16 20:06) Sodium Chlor 0.9% 1000 Ml Inj (Ns 1000 M (10/16/16 21:15) Thiamine Inj (Thiamine Inj) (10/16/16 21:15) MDM Medical Decision Making Medical Screen Exam Complete: Yes Emergency Medical Condition: Yes Differential Diagnosis Close head injury, neck injury, intoxication, poor social circumstance, fall Narrative Course Patient 45-year-old male presents emergency department after closed head injury from a ground level fall. Complains of left knee pain as well as headache. CT head C-spine and x-rays of the left knee are negative. Patient is unstable on his feet secondary to alcohol ingestion. Will be allowed to sleep it off in the emergency department. He does give a fairly good story for treatment fall while walking down the street intoxicated. On nursing assessment after a period of observation in emergency Department could be discharged when clinically sober. 0200: Patient reassessed by me, ambulating to the bathroom even and balanced. Appears well and in nad. No complaints. Discussed with him can continue to sleep until the morning if he likes but he would like to leave. He is clinically sober there is no indication to hold him here against his will. Diagnosis Primary Impression: Fall Qualified Code: W19.XXXA - Fall, initial encounter Disposition: 01 DISCHARGE HOME Condition: Stable Cornell Dillard MD Oct 16, 2016 21:07
[2016-10-16] MEDS ORDERED: SODIUM CHLOR 0.9% 1000 ML INJ 1,000 ML IV ONE (21:15)
[2016-10-16] MEDS ORDERED: THIAMINE INJ 100 MG in SODIUM CHLORIDE 0.9% INJ 100 ML IV ONE (21:15)
[2016-10-17 01:50] VITALS: BP 142/77
== END 2016-10-17 03:28 | disposition home or self-care (01) ==
LOC: NEPA 19:23
DX: R51 Headache (principal); M25.562 Pain in left knee; F17.200 Nicotine dependence, unspecified, uncomplicated; Z86.59 Personal history of other mental and behavioral disorders; Z86.79 Personal history of other diseases of the circulatory system; Z87.09 Personal history of other diseases of the respiratory system; Z86.69 Personal history of other diseases of the nervous system and sense organs; W01.0XXA Fall on same level from slipping, tripping and stumbling without subsequent striking against object, initial encounter
CPT/HCPCS: 70450; 72125; 73564; 99284; J3411; J7030

== ENCOUNTER 2016-10-17 02:10 | Emergency (ER) | payer SELFPAY ==
[~2016-10-17] VITALS: Ht 172.7 cm; Wt 68.0 kg
[2016-10-17 02:11] VITALS: BP 140/87; PULSE 104; RESP 16; TEMP 97.6; O2SAT 98
[2016-10-17] MEDS ORDERED: chlordiazePOXIDE 25 MG CAP PO PRN (04:00)
--- NOTE | 2016-10-17 05:26 | PD ---
HPI Chief Complaint: Psychiatric Symptoms Time Seen by Provider: 05:21 Travel History International Travel<30 days: No Contact w/Intl Traveler<30days: No Traveled to known affect area: No History of Present Illness HPI This is a 45-year-old white male who presents to the emergency department for psychological evaluation. The patient states that his feeling depressed and having suicidal thoughts. He has no active plan on self-harm. This is a patient admitted seen twice earlier today. He is currently homeless. He denies any homicidal ideation. [facility] Past Medical History Medical History: Unable to Obtain Anxiety: Yes Depression: Yes Cardiovascular Problems: Yes (PALPITATIONS ) COPD: Yes Diminished Hearing: No Respiratory: Yes (COPD) Seizures: Yes (ETOH WITHDRAWL ) Tetanus Vaccination: Unknown Past Surgical History Surgical History: Unable to Obtain Social History Alcohol Use: Yes (Daily) Tobacco Use: Yes (2 PPD) Substance Use: Yes (ETOH DAILY, COCAINE(PT DENIES HX SAYS DOES)) Allergies-Medications (Allergen,Severity, Reaction): Coded Allergies: Paxil (Verified Allergy, Intermediate, Confusion, 10/17/16) Reported Meds & Prescriptions Reported Meds & Active Scripts Active Carafate (Sucralfate) 1 Gm Tab 1 Gm PO QID On empty stomach Protonix (Pantoprazole Sodium) 20 Mg Tab 20 Mg PO DAILY Reported Remeron (Mirtazapine) 15 Mg Tab 15 Mg PO HS Lexapro (Escitalopram Oxalate) 10 Mg Tab 10 Mg PO DAILY Review of Systems General / Constitutional: No: Fever, Chills Eyes: No: Diploplia, Blurred Vision HENT: No: Headaches, Sore Throat Cardiovascular: No: Chest Pain or Discomfort, Palpitations Respiratory: No: Cough, Shortness of Breath Gastrointestinal: Positive: Nausea, No: Vomiting Genitourinary: No: Dysuria, Hematuria Musculoskeletal: No: Myalgias, Arthralgias Skin: No Rash, No Dryness Neurologic: No: Weakness, Syncope Psychiatric: Positive: Depression, Suicidal Ideations, Mood Disorder, Substance Abuse, No: Anxiety, Disorder of Thought, Homicidal Ideation Physical Exam Narrative GENERAL: Well-nourished, well-developed patient. SKIN: Warm and dry. HEAD: Normocephalic and atraumatic. EYES: No scleral icterus. No injection or drainage. ENT: No nasal drainage noted. Mucous membranes pink. Airway patent. NECK: Supple, trachea midline. Moves head freely without obvious discomfort. CARDIOVASCULAR: Regular rate and rhythm without murmurs, gallops, or rubs. RESPIRATORY: Breath sounds equal bilaterally. No accessory muscle use. GASTROINTESTINAL: Abdomen soft, non-tender, nondistended. EXTREMITIES: No cyanosis or edema. BACK: Nontender without obvious deformity. No CVA tenderness. NEURO: Patient is alert and oriented. no sensorimotor deficits. Nonfocal. Normal speech. PSYCH: No delusions. No auditory or visual hallucinations. Data Data Last Documented VS Vital Signs Date Time Temp Pulse Resp B/P Pulse Ox O2 Delivery O2 Flow Rate FiO2 10/17/16 03:35 82 20 10/17/16 02:11 97.6 140/87 98 Room Air Orders Psych Screen (10/17/16 02:48) Drug Screen, Random Urine (10/17/16 02:48) Alcohol (Ethanol) (10/17/16 02:48) Chlordiazepoxide (Librium) (10/17/16 04:00) MDM Medical Decision Making Medical Screen Exam Complete: Yes Emergency Medical Condition: Yes Medical Record Reviewed: Yes Differential Diagnosis MDM: High Differential diagnoses: Schizophrenia, schizoaffective disorder, bipolar, anxiety, depression, adjustment reaction, mood disorder NOS, ODD, depressive disorder NOS, dementia, dementia with agitation, psychosis NOS, substance induced mood disorder, intermittent explosive disorder, Asperger syndrome, infection,electrolyte abnormality, malingering. Narrative Course Mental health screening discussed with the patient. Psychiatric screen ordered. Patient's laboratory tests reviewed from the last visits. This is alcohol abuse, alcohol induced mood disorder, malingering Diagnosis Primary Impression: Alcohol dependence Qualified Code: F10.20 - Uncomplicated alcohol dependence Additional Impressions: Substance induced mood disorder Malingering Condition: Stable Tramaine Sagastume Oct 17, 2016 05:26
[2016-10-17 06:50] VITALS: BP 132/77; PULSE 84; RESP 20; O2SAT 96
[2016-10-17 10:59] VITALS: BP 139/83; PULSE 93; RESP 18; O2SAT 97
[2016-10-17] MEDS ORDERED: chlordiazePOXIDE 25 MG CAP PO STA (12:19)
--- NOTE | 2016-10-17 13:19 | PD ---
History of Present Illness Chief Complaint: Psychiatric Symptoms Time Seen by Provider: 12:30 Travel History International Travel<30 Days: No Contact w/Intl Traveler<30days: No Known affected area: No Legal Status Legal Status: Voluntary History of Present Illness: This is a 45-year-old male with a significant history of alcoholism, presenting for the third time with complaints of depression and suicidal ideation. He is reportedly wanting alcohol detox and rehabilitation. When explained that this facility does not have a license for alcoholism and detox, the patient wants to go elsewhere for treatment. He only threatens suicide if he is being discharged. Patient is noted and admits to a long history of alcohol abuse for years with multiple detox treatments in the past. He does not take responsibility for his alcohol abuse, his return to alcoholism or his lack of follow up. This physician feels the patient is being highly manipulative and it would be counter therapeutic to give into his manipulations. Therefore he is not being admitted to psychiatry despite his threats of suicide and potential for acting out. PFSH Past Medical History Medical History: Denies Significant Hx Anxiety: Yes Depression: Yes Cardiovascular Problems: Yes (PALPITATIONS ) COPD: Yes Diminished Hearing: No Respiratory: Yes (COPD) Seizures: Yes (ETOH WITHDRAWL ) Tetanus Vaccination: Unknown Past Surgical History Surgical History: Unable to Obtain Psychiatric History Psychiatric History Hx Psychiatric Treatment: HX OF ANXIETY, PTSD AND DEPRESSION History of Inpatient Treatment: Yes Guns or firearms in home: No Social History Hx Alcohol Use: Yes (Daily) Hx Tobacco Use: Yes (2 PPD) Hx Substance Use: Yes (ETOH DAILY, COCAINE(PT DENIES HX SAYS DOES)) Substance Use Type: Alcohol, Nicotine/Cigarettes, Cocaine Hx of Substance Use Treatment: Yes Family Psychiatric History Positive for alcoholism. Allergies-Medications (Allergen,Severity, Reaction): Coded Allergies: Paxil (Verified Allergy, Intermediate, Confusion, 10/17/16) Reported Meds & Prescriptions Reported Meds & Active Scripts Active Carafate (Sucralfate) 1 Gm Tab 1 Gm PO QID On empty stomach Protonix (Pantoprazole Sodium) 20 Mg Tab 20 Mg PO DAILY Reported Remeron (Mirtazapine) 15 Mg Tab 15 Mg PO HS Lexapro (Escitalopram Oxalate) 10 Mg Tab 10 Mg PO DAILY Review of Systems ROS Limitations: Clinical Condition Except as stated in HPI: all other systems reviewed are Neg Exam Exam Limitations: Clinical Condition Alert: Yes [place]: Person, Place, Date, Situation Mood: Calm Affect: Restricted Speech: Clear, Logical Eye Contact: Normal Memory Intact: Immediate, Recent, Remote Hallucinations: Other Delusions: No Delusion Type: Other Suicidal: Ideation Insight/Judgement Impaired insight and judgment but this is felt to be baseline. MDM Medical Decision Making Medical Record Reviewed: Yes Assessment/Plan This physician feels patient should be discharged from a psychiatric standpoint. Patient has demonstrated significant manipulative behavior and is doing so at the present time to get admitted for alcoholism. He has been treated multiple times in the past and return to the abuse of alcohol. It is counter therapeutic to continue this cycle of behavior. Request HC Surrog/Guard Advoc?: No Orders Psych Screen (10/17/16 02:48) Drug Screen, Random Urine (10/17/16 02:48) Alcohol (Ethanol) (10/17/16 02:48) Chlordiazepoxide (Librium) (10/17/16 04:00) Diet Regular Basic (10/17/16 Breakfast) Chlordiazepoxide (Librium) (10/17/16 12:19) Diet Regular Basic (10/17/16 Lunch) Results Vital Signs Date Time Temp Pulse Resp B/P Pulse Ox O2 Delivery O2 Flow Rate FiO2 10/17/16 10:59 93 18 139/83 97 Room Air 10/17/16 06:50 84 20 132/77 96 10/17/16 03:35 82 20 10/17/16 02:11 97.6 104 16 140/87 98 Room Air Laboratory Tests Test 10/17/16 11:01 Ethyl Alcohol Level LESS THAN 3 Diagnosis Primary Impression: Alcohol dependence Additional Impressions: Substance induced mood disorder Malingering Disposition: 01 DISCHARGE HOME Condition: Stable Problem Qualifiers Primary Impression: Alcohol dependence Qualified Code: F10.20 - Uncomplicated alcohol dependence Jason Razo MD Oct 17, 2016 13:19
[2016-10-17 14:48] VITALS: BP 130/83
== END 2016-10-17 15:14 | disposition home or self-care (01) ==
LOC: NEPA 02:10
DX: F39 Unspecified mood [affective] disorder (principal); F10.20 Alcohol dependence, uncomplicated; Z59.0 Homelessness; J44.9 Chronic obstructive pulmonary disease, unspecified; F17.210 Nicotine dependence, cigarettes, uncomplicated; Z76.5 Malingerer [conscious simulation]
CPT/HCPCS: 80320; 99284

== ENCOUNTER 2016-11-01 19:57 | Emergency (ER) | payer SELFPAY ==
[2016-11-01 19:59] VITALS: BP 114/66; PULSE 91; RESP 14; TEMP 98.8; O2SAT 96
== END 2016-11-01 21:05 | disposition left against medical advice (07) ==
LOC: NED 19:57
DX: R68.89 Other general symptoms and signs (principal)
CPT/HCPCS: 99281

== ENCOUNTER 2016-11-01 21:52 | Emergency (ER) | payer SELFPAY ==
[~2016-11-01] VITALS: Ht 172.7 cm; Wt 61.4 kg
[2016-11-01 21:54] VITALS: BP 122/82; PULSE 91; RESP 14; TEMP 97.5; O2SAT 98
[2016-11-01] MEDS ORDERED: SODIUM CHLOR 0.9% 1000 ML INJ 1,000 ML IV ONE (23:00)
[2016-11-01] MEDS ORDERED: SODIUM CHLORIDE 0.9% FLUSH 5 ML FLUSH IVF PRN (23:00)
[2016-11-01] MEDS ORDERED: ONDANSETRON HCL 4 MG/2 ML VIAL IV PUSH ONE (23:00)
[2016-11-01] MEDS ORDERED: LORazepam 2 MG/ML VIAL IM ONE (23:00)
--- NOTE | 2016-11-01 23:07 | PD ---
HPI Chief Complaint: Depression Time Seen by Provider: 22:50 Travel History International Travel<30 days: No Contact w/Intl Traveler<30days: No Traveled to known affect area: No History of Present Illness HPI Patient is a 45-year-old male who presents to emergency room for psychiatric evaluation. Patient reports that he has been very depressed, reports that he is an alcoholic, reports that he drinks about 5 pints of alcohol per day. Patient reports that his last drink was around 4 PM today. He works that he has been feeling nauseous, reports that he has not been able to keep down any drinks at this time. Patient reports that he is trying to quit drinking alcohol and would like some help. Patient denies suicidal ideation at this time , reports "I just want to talk to someone." PFSH Past Medical History Anxiety: Yes Depression: Yes Cardiovascular Problems: Yes (PALPITATIONS ) COPD: Yes Diminished Hearing: No Respiratory: Yes (COPD) Seizures: Yes (ETOH WITHDRAWL ) Social History Alcohol Use: Yes (Daily) Tobacco Use: Yes (2 PPD) Substance Use: Yes (ETOH DAILY, COCAINE(PT DENIES HX SAYS DOES)) Allergies-Medications (Allergen,Severity, Reaction): Coded Allergies: Paxil (Verified Allergy, Intermediate, Confusion, 11/01/16) Reported Meds & Prescriptions Reported Meds & Active Scripts Active Carafate (Sucralfate) 1 Gm Tab 1 Gm PO QID On empty stomach Protonix (Pantoprazole Sodium) 20 Mg Tab 20 Mg PO DAILY Reported Remeron (Mirtazapine) 15 Mg Tab 15 Mg PO HS Lexapro (Escitalopram Oxalate) 10 Mg Tab 10 Mg PO DAILY Review of Systems General / Constitutional: No: Fever Eyes: No: Visual changes HENT: No: Headaches Cardiovascular: No: Chest Pain or Discomfort Respiratory: No: Shortness of Breath Gastrointestinal: No: Abdominal Pain Genitourinary: No: Dysuria Musculoskeletal: No: Pain Skin: No Rash Neurologic: No: Weakness Psychiatric: Positive: Substance Abuse, No: Depression, Suicidal Ideations Endocrine: No: Polydipsia Hematologic/Lymphatic: No: Easy Bruising Physical Exam Narrative GENERAL: No acute distress, nontoxic SKIN: Warm and dry. HEAD: Atraumatic. Normocephalic. EYES: Pupils equal and round. No scleral icterus. No injection or drainage. ENT: No nasal bleeding or discharge. Mucous membranes pink and moist. NECK: Trachea midline. No JVD. CARDIOVASCULAR: Regular rate and rhythm. No murmur appreciated. RESPIRATORY: No accessory muscle use. Clear to auscultation. Breath sounds equal bilaterally. GASTROINTESTINAL: Abdomen soft, non-tender, nondistended. Hepatic and splenic margins not palpable. MUSCULOSKELETAL: No obvious deformities. No clubbing. No cyanosis. No edema. NEUROLOGICAL: Awake and alert. No obvious cranial nerve deficits. Motor grossly within normal limits. Normal speech. PSYCHIATRIC: Patient intoxicated Data Data Last Documented VS Vital Signs Date Time Temp Pulse Resp B/P Pulse Ox O2 Delivery O2 Flow Rate FiO2 11/01/16 23:45 91 14 11/01/16 21:54 97.5 122/82 98 Room Air Orders Complete Blood Count With Diff (11/01/16 22:54) Comprehensive Metabolic Panel (11/01/16 22:54) Iv Access Insert/Monitor (11/01/16 22:54) Ecg Monitoring (11/01/16 22:54) Psych Screen (11/01/16 22:54) Sodium Chloride 0.9% Flush (Ns Flush) (11/01/16 23:00) Lorazepam Inj (Ativan Inj) (11/01/16 23:00) Drug Screen, Random Urine (11/01/16 22:54) Alcohol (Ethanol) (11/01/16 22:54) Salicylates (Aspirin) (11/01/16 22:54) Tylenol (Acetaminophen) (11/01/16 22:54) Ondansetron Inj (Zofran Inj) (11/01/16 23:00) Sodium Chlor 0.9% 1000 Ml Inj (Ns 1000 M (11/01/16 23:00) MDM Medical Decision Making Medical Screen Exam Complete: Yes Emergency Medical Condition: Yes Interpretation(s) Vital Signs Date Time Temp Pulse Resp B/P Pulse Ox O2 Delivery O2 Flow Rate FiO2 11/01/16 21:54 97.5 91 14 122/82 98 Room Air Differential Diagnosis Alcohol abuse, depression, mood disorder Narrative Course Patient is a 45-year-old male with history of alcohol abuse, presents to emergency room with complaints of depression and alcohol withdrawl. Patient reports that his last drink was around 4 PM today, reports that he feels shaky. Patient reports that he has depression and would like to talk to someone. Denies si/hi at this time Psychiatrics reading labs ordered, will have patient seen by screeners once cleared Went to re-evaluate patient, patient not in room, as per DHIRAJ MAR at bedside, patient walked out of the ER Diagnosis Primary Impression: Alcohol dependence Qualified Code: F10.230 - Alcohol dependence with uncomplicated withdrawal Additional Impressions: Alcohol withdrawal Qualified Code: F10.230 - Alcohol withdrawal, uncomplicated Depression Qualified Code: F32.9 - Depression, unspecified depression type Referrals: [facility] Patient Instructions: General Instructions Additional Instructions: Please follow-up with a [facility], [place], [facility] Follow with your primary care doctor Please stop drinking alcohol Disposition: 07 AGAINST MEDICAL ADVICE Condition: Serious Magy Guerin DO Nov 01, 2016 23:06
== END 2016-11-02 | disposition left against medical advice (07) ==
LOC: NEPA 21:52
DX: F17.210 Nicotine dependence, cigarettes, uncomplicated (principal); F14.90 Cocaine use, unspecified, uncomplicated; F10.239 Alcohol dependence with withdrawal, unspecified
CPT/HCPCS: 99284

== ENCOUNTER 2016-12-03 18:33 | Emergency (ER) | payer OTHER ==
[~2016-12-03] VITALS: Ht 182.9 cm; Wt 78.0 kg
[2016-12-03 18:40] VITALS: BP 100/58; PULSE 106; RESP 18; TEMP 98.1; O2SAT 97
[2016-12-03 18:41] LABS: MEAN CORPUSCULAR HGB CONC 36.9 % (32.0-36.0)
[2016-12-03 18:42] VITALS: RESP 18; O2SAT 96
[2016-12-03] MEDS ORDERED: SODIUM CHLOR 0.9% 1000 ML INJ 1,000 ML IV ONE ×2 (18:45→19:45)
[2016-12-03] MEDS ORDERED: ONDANSETRON HCL 4 MG/2 ML VIAL IV PUSH ONE (18:45)
[2016-12-03] MEDS ORDERED: SODIUM CHLORIDE 0.9% FLUSH 10 ML FLUSH IVF PRN (18:45)
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
[2016-12-03 19:13] LABS: AUTOMATED NEUTROPHIL # 10.7 TH/MM3 (1.8-7.7); BASOPHIL # 0.1 TH/MM3 (0-0.2); BASOPHIL % 0.6 % (0.0-2.0); EOSINOPHIL # 0.3 TH/MM3 (0-0.4); EOSINOPHIL % 1.6 % (0.0-4.0); HEMATOCRIT 45.2 % (39.0-51.0); LYMPH % 29.8 % (9.0-44.0); LYMPHOCYTE # 5.1 TH/MM3 (1.0-4.8); MEAN CELL VOLUME 95.8 FL (80.0-100.0); MEAN CORPUSCULAR HEMOGLOBIN 35.4 PG (27.0-34.0); MONO % 5.2 % (0.0-8.0); NEUT % 62.8 % (16.0-70.0); PLATELET COUNT 266 TH/MM3 (150-450); RED BLOOD COUNT 4.71 MIL/MM3 (4.50-5.90); RED CELL DISTRIBUTION WIDTH 14.1 % (11.6-17.2)
[2016-12-03 19:15] LABS: HEMO FLAGS AUTO DIFF
[2016-12-03 19:45] VITALS: BP 100/59; PULSE 96; RESP 16; O2SAT 95
[2016-12-03 19:50] LABS: PLATELET ESTIMATE SMEAR NORMAL (NORMAL); PLATELET MORPHOLOGY NORMAL (NORMAL); SCAN/DIFF AUTO DIFF CONFIRMED
[2016-12-03 20:22] LABS: AMPHETAMINE, URINE NEG (NEG); BARBITURATES, URINE NEG (NEG); COCAINE, URINE NEG (NEG)
[2016-12-03 20:23] LABS: BLOOD, URINE NEG (NEG); COMMENT (UR) CULT NOT INDICATED; CULTURE IF INDICATED CULT NOT INDICATED; GLUCOSE,URINE NEG (NEG); KETONE, URINE 10 mg/dL (NEG); MUCUS URINE FEW /lpf (OCC); NITRITE,URINE NEG (NEG); PH, URINE 5.5 (5.0-8.5); URINE COLOR YELLOW (YELLW/STRAW)
[2016-12-03 20:44] LABS: ALKALINE PHOSPHATASE 84 U/L (45-117); ANION GAP 16 MEQ/L (5-15); AST (GOT) 55 U/L (15-37); BICARBONATE 16.9 MEQ/L (21.0-32.0); CHLORIDE 104 MEQ/L (98-107); GLOMERULAR FILTRATION RATE 104 ML/MIN (>89); SODIUM (NA) 137 MEQ/L (136-145); TOTAL BILIRUBIN ADULT 0.3 MG/DL (0.2-1.0)
[2016-12-03 20:46] LABS: ACETAMINOPHEN LESS THAN 2.0 MCG/ML (10.0-30.0); ALT (GPT) 31 U/L (12-78); BLOOD UREA NITROGEN 21 MG/DL (7-18); POTASSIUM 4.7 MEQ/L (3.5-5.1)
--- NOTE | 2016-12-03 22:22 | RADRPT ---
EXAM DATE/TIME: 12/03/2016 21:39 [facility] COMPARISON: CHEST SINGLE AP, October 16, 2016, 11:10. INDICATIONS : Cough. MEDICAL HISTORY : Seizures. Cardiovascular disease. SURGICAL HISTORY : None. ENCOUNTER: Initial ACUITY: 1 day PAIN SCORE: 0/10 LOCATION: Bilateral chest FINDINGS: A single view of the chest demonstrates the lungs to be symmetrically aerated without evidence of mas s, infiltrate or effusion. The cardiomediastinal contours are unremarkable. Osseous structures are intact. CONCLUSION: 1. No active disease. No effusion or pneumothorax. Tramaine Reynoso MD on December 03, 2016 at 22:19 Board Certified Radiologist. This report was verified electronically.
[2016-12-03] MEDS ORDERED: FLUMAZENIL 0.5 MG/5 ML VIAL IV PUSH PRN (22:45)
[2016-12-03 22:52] VITALS: BP 129/83; PULSE 92; RESP 18; O2SAT 98
[2016-12-04 02:17] VITALS: BP 111/61; PULSE 95; RESP 18; O2SAT 99
[2016-12-04] MEDS ORDERED: LORazepam 1 MG TAB PO PRN (06:00)
[2016-12-04] MEDS ORDERED: LORazepam 2 MG TAB PO PRN (06:00)
[2016-12-04] MEDS ORDERED: LORazepam 2 MG/ML VIAL IV PUSH PRN ×4 (06:00)
[2016-12-04 06:32] VITALS: BP 112/65; PULSE 86; RESP 18
--- NOTE | 2016-12-04 08:15 | MB ---
cc: NNAMDI THAKKAR DATE OF CONSULTATION 12/04/2016 PHYSICIAN REQUESTING CONSULTATION Emergency Department REASON FOR CONSULTATION Palencia Act. HISTORY OF PRESENT ILLNESS Mr. Gerard is a 46-year-old male with a reported history of depression and anxiety and a chart history of alcohol use disorder and malingering who presents on a Palencia Act from law enforcement alleging that the patient called dispatch stating that he did not want to keep on anymore and that he was having thoughts about hurting himself. Reviewing the electronic medical record, I note that the patient was seen in consultation by Dr. Razo on October 17, 2016. At that time it was Dr. Razo's assessment that the patient was being "highly manipulative and it would be counter-therapeutic to give in to his manipulations" regarding threatening suicide. The patient is seen and examined. Chart reviewed. Case discussed with nurse in the J pod. There has been no evidence of any suicidal or homicidal behavior while under observation in the J pod. This morning, the patient is clinically sober. His alcohol level on presentation was 326. The patient is an extremely vague and manipulative historian. He does not volunteer any psychiatric symptomatology initially. When specifically asked, he does report that he is "feeling a little bit suicidal" although he declines to go into any specific detail about this. At another point he denies any suicidality. He is quite manipulative and personality disordered and seems to be trying to manipulate this examiner into keeping the patient in the ED by initially saying, "I should probably go" and then later saying "I guess I should stay." He does not report any audiovisual hallucinations and there is no evident delusions or other evidence of psychosis. The remainder of the psychiatric ROS is negative. PAST PSYCHIATRIC HISTORY The patient reports a history of depression and anxiety. He is not currently under the care of a psychiatrist nor is he taking any psychotropic medications. He reports that he was admitted "a long time ago" and says that he attempted suicide "years ago" by cutting his wrists, hanging himself and asphyxiating himself all at the same time. FAMILY HISTORY The patient denies any family history of mental illness or suicide. CHEMICAL DEPENDENCY HISTORY The patient reports he drinks a bottle of vodka a day. He does endorse a history of blackouts and withdrawal seizures. Denies any other substance use. SOCIAL HISTORY The patient is single with no children. He has two years of college. He is reportedly presently looking for work at an [employer] shop. He denies any or legal history. No reported access to guns or firearms. Denies any gnosticism or spiritual beliefs. PAST MEDICAL HISTORY The patient denies any medical issues. REVIEW OF SYSTEMS No reported headache, vision or hearing changes, chest pain, shortness of breath, bowel or bladder issues. No other physical complaints. PHYSICAL EXAMINATION VITAL SIGNS: Temperature is 98.1, pulse 86, respirations 18, blood pressure 112/65, pulse oximetry 99% on room air. GENERAL: Physical examination completed by the ED provider. On my examination today, the patient appears to be in no acute physical distress. No motor abnormalities noted. No signs of GABAergic withdrawal noted. In particular, no hand tremor, no diaphoresis, no mydriasis. LABORATORIES CBC is significant for a leukocytosis with the white blood cell count of 17. CMP is significant for mildly elevated AST. Alcohol level was 326. Toxicology was negative. MENTAL STATUS EXAM The patient is in hospital gown. He is fairly well-groomed and certainly maintaining basic hygiene and basic needs. He is awake, alert and oriented to person and hospital at least. No evidence of delirium. Motor exam as above. Speech is within normal limits for rate, tone and volume. Language and fund of knowledge seem average. Mood is mildly dysphoric but not really depressed and affect is mildly restricted. Thought process linear. No loosening of associations. No evident delusions. No audiovisual hallucinations. The patient makes vague and manipulative statements vis-a-vis suicidality as noted above, but there has been no evidence of any suicidal behavior while under observation in the J pod. No homicidal ideation. Insight and judgment are likely chronically poor particularly with respect to the substance use. ASSESSMENT AND PLAN 1. Alcohol dependence. 2. Significant antisocial personality traits with prominent manipulativeness. This is a 46-year-old male with psychiatric history as detailed above who presents under Palencia Act. The patient seems once again to be manipulatively reporting suicidal ideation in an effort to prolong his stay in the hospital as he is currently homeless. He may also be seeking for benzodiazepine medications or for detoxification services. I concur with Dr. Razo that it would be counter-therapeutic to give into these manipulations. There is no real evidence of any unstable mood, anxiety or psychotic disorder in this patient at this time. There has been no evidence of any suicidal or homicidal behavior while in the J pod. The patient's primary issues seem to be alcohol use-related and so would not follow under the purview of the Palencia Act. The patient does not presently meet Palencia act criteria after weighing the relevant factors, and I have lifted the Palencia Act. I have recommended that the patient should pursue alcohol dependence treatment, and the nurse will provide the appropriate referrals. The patient to return to the psychiatric emergency room for any concerning psychiatric symptoms. The patient is psychiatrically cleared for discharge from the ED. Thank you very much for this consultation. Nnamdi Thakkar DC/GINA /7:30 AM /8:04 AM MTDSally
== END 2016-12-04 08:54 | disposition home or self-care (01) ==
LOC: NEPE 18:33 → NEPJ 12-04 08:54
DX: R45.851 Suicidal ideations (principal); F10.229 Alcohol dependence with intoxication, unspecified; F60.2 Antisocial personality disorder; F41.9 Anxiety disorder, unspecified; F32.9 Major depressive disorder, single episode, unspecified; J44.9 Chronic obstructive pulmonary disease, unspecified; F17.200 Nicotine dependence, unspecified, uncomplicated; Y90.8 Blood alcohol level of 240 mg/100 ml or more
CPT/HCPCS: 71010; 80053; 80307; 81001; 85025; 96374; 99284; J2405; J7030

== ENCOUNTER 2016-12-06 17:53 | Emergency (ER) | payer OTHER ==
[~2016-12-06] VITALS: Ht 170.2 cm; Wt 70.0 kg
[2016-12-06 18:40] VITALS: BP 147/82; PULSE 90; RESP 17; TEMP 98; O2SAT 100
--- NOTE | 2016-12-06 18:53 | PD ---
HPI Chief Complaint: Alcohol/Drug Intoxication Time Seen by Provider: 18:39 Travel History International Travel<30 days: No Contact w/Intl Traveler<30days: No Traveled to known affect area: No History of Present Illness HPI 46-year-old male was brought in by police department for detoxification. Patient states that his last drink was yesterday evening. Patient denies any illicit drug abuse. Patient states that he was intoxicated and walking unsteady on the street and was brought in by police to the ED for evaluation. Patient denies any headache. Patient denies any chest pain or shortness of breath. Patient denies abdominal pain. Patient denies any focal weakness or numbness of extremity. Patient states that he has crawling sensation on the skin. Patient states that he has history of seizure in the past from alcohol withdrawal. PFSH Past Medical History Anxiety: Yes Depression: Yes Cardiovascular Problems: Yes (PALPITATIONS ) COPD: Yes Diminished Hearing: No Respiratory: Yes (COPD) Seizures: Yes (ETOH WITHDRAWL ) Tetanus Vaccination: Unknown Influenza Vaccination: No ?: Not Social History Alcohol Use: Yes (Daily) Tobacco Use: Yes (2 PPD) Substance Use: No Allergies-Medications (Allergen,Severity, Reaction): Coded Allergies: Paxil (Verified Adverse Reaction, Intermediate, Confusion, 12/06/16) Reported Meds & Prescriptions Reported Meds & Active Scripts Active No Active Prescriptions or Reported Medications Review of Systems General / Constitutional: No: Fever Eyes: No: Visual changes HENT: No: Headaches Cardiovascular: No: Chest Pain or Discomfort Respiratory: No: Shortness of Breath Gastrointestinal: No: Abdominal Pain Genitourinary: No: Dysuria Musculoskeletal: No: Pain Skin: No Rash Neurologic: No: Weakness Psychiatric: No: Depression Endocrine: No: Polydipsia Hematologic/Lymphatic: No: Easy Bruising Physical Exam Narrative GENERAL: Well-nourished, well-developed patient. SKIN: Focused skin assessment warm/dry. HEAD: Normocephalic. EYES: No scleral icterus. No injection or drainage. NECK: Supple, trachea midline. No JVD or lymphadenopathy. CARDIOVASCULAR: Regular rate and rhythm without murmurs, gallops, or rubs. RESPIRATORY: Breath sounds equal bilaterally. No accessory muscle use. GASTROINTESTINAL: Abdomen soft, non-tender, nondistended. MUSCULOSKELETAL: No cyanosis, or edema. BACK: Nontender without obvious deformity. No CVA tenderness. Neurologic exam: Patient's awake and alert oriented 3. No obvious focal neurological deficit. Data Data Last Documented VS Vital Signs Date Time Temp Pulse Resp B/P Pulse Ox O2 Delivery O2 Flow Rate FiO2 12/06/16 19:00 100 Room Air 12/06/16 18:43 96 16 12/06/16 18:40 98.0 147/82 Orders Complete Blood Count With Diff (12/06/16 18:45) Comprehensive Metabolic Panel (12/06/16 18:45) Urinalysis - C+S If Indicated (12/06/16 18:45) Iv Access Insert/Monitor (12/06/16 18:45) Ecg Monitoring (12/06/16 18:45) Oximetry (12/06/16 18:45) Drug Screen, Random Urine (12/06/16 18:45) Alcohol (Ethanol) (12/06/16 18:45) Diet Regular Basic (12/07/16 Dinner) Urine Culture (12/06/16 18:56) Labs Laboratory Tests Test 12/06/16 18:56 White Blood Count 11.7 TH/MM3 Red Blood Count 4.54 MIL/MM3 Hemoglobin 14.7 GM/DL Hematocrit 42.9 % Mean Corpuscular Volume 94.4 FL Mean Corpuscular Hemoglobin 32.3 PG Mean Corpuscular Hemoglobin 34.2 % Concent Red Cell Distribution Width 13.8 % Platelet Count 189 TH/MM3 Mean Platelet Volume 8.3 FL Neutrophils (%) (Auto) 66.7 % Lymphocytes (%) (Auto) 23.4 % Monocytes (%) (Auto) 6.6 % Eosinophils (%) (Auto) 2.6 % Basophils (%) (Auto) 0.7 % Neutrophils # (Auto) 7.8 TH/MM3 Lymphocytes # (Auto) 2.8 TH/MM3 Monocytes # (Auto) 0.8 TH/MM3 Eosinophils # (Auto) 0.3 TH/MM3 Basophils # (Auto) 0.1 TH/MM3 CBC Comment DIFF FINAL Differential Comment Urine Color YELLOW Urine Turbidity CLEAR Urine pH 6.5 Urine Specific [place] 1.014 Urine Protein NEG mg/dL Urine Glucose (UA) NEG mg/dL Urine Ketones NEG mg/dL Urine Occult Blood NEG Urine Nitrite NEG Urine Bilirubin NEG Urine Urobilinogen LESS THAN 2.0 MG/DL Urine Leukocyte Esterase TRACE Urine RBC LESS THAN 1 /hpf Urine WBC 15 /hpf Urine Bacteria OCC /hpf Microscopic Urinalysis Comment CULTURE INDICATED Sodium Level 141 MEQ/L Potassium Level 4.0 MEQ/L Chloride Level 105 MEQ/L Carbon Dioxide Level 24.8 MEQ/L Anion Gap 11 MEQ/L Blood Urea Nitrogen 15 MG/DL Creatinine 0.69 MG/DL Estimat Glomerular Filtration 123 ML/MIN Rate Random Glucose 141 MG/DL Calcium Level 7.7 MG/DL Total Bilirubin 0.5 MG/DL Aspartate Amino Transf 40 U/L (AST/SGOT) Alanine Aminotransferase 36 U/L (ALT/SGPT) Alkaline Phosphatase 83 U/L Total Protein 6.1 GM/DL Albumin 3.2 GM/DL Urine Opiates Screen NEG Urine Barbiturates Screen NEG Urine Amphetamines Screen NEG Urine Benzodiazepines Screen NEG Urine Cocaine Screen NEG Urine Cannabinoids Screen NEG Ethyl Alcohol Level 260 MG/DL MDM Medical Decision Making Medical Screen Exam Complete: Yes Emergency Medical Condition: Yes Interpretation(s) 1948 PM . CBC WBC 11.7. Normal differential. UA positive with WBC and bacteria. 2020 PM. CMP within normal limit. Glucose 141. Calcium 7.7. AST 40. Alcohol 260. Urine drug screen negative. Differential Diagnosis Differential diagnosis including alcohol intoxication, substance abuse, mental illness. Narrative Course 46-year-old male was intoxicated brought into this department for evaluation. Patient has history of alcohol abuse and malingering and has been to the emergency room several times in the past with same problem. Diagnosis Primary Impression: Alcohol intoxication Qualified Code: F10.120 - Alcohol intoxication, uncomplicated Additional Impression: UTI (urinary tract infection) Qualified Code: N30.00 - Acute cystitis without hematuria Patient Instructions: General Instructions, Moderate Sedation in Children (ED) Additional Instructions: Bactrim DS as directed. Follow-up with local physician. Advised [facility]. Med/Other Pt SpecificInfo: Prescription(s) given Scripts Sulfamethoxazole-Trimethoprim (Bactrim DS)800-160 Mg Tab1 Tab PO BID #14 TAB Prov:Konrad Mcghee MD 12/06/16 Disposition: 01 DISCHARGE HOME Condition: Stable Konrad Mcghee MD Dec 06, 2016 18:53
[2016-12-06 19:00] VITALS: O2SAT 100
[2016-12-06 19:20] LABS: AUTOMATED NEUTROPHIL # 7.8 TH/MM3 (1.8-7.7); BASOPHIL # 0.1 TH/MM3 (0-0.2); BASOPHIL % 0.7 % (0.0-2.0); EOSINOPHIL # 0.3 TH/MM3 (0-0.4); EOSINOPHIL % 2.6 % (0.0-4.0); HEMATOCRIT 42.9 % (39.0-51.0); HEMO FLAGS DIFF FINAL; LYMPH % 23.4 % (9.0-44.0); LYMPHOCYTE # 2.8 TH/MM3 (1.0-4.8); MEAN CELL VOLUME 94.4 FL (80.0-100.0); MEAN CORPUSCULAR HEMOGLOBIN 32.3 PG (27.0-34.0); MEAN CORPUSCULAR HGB CONC 34.2 % (32.0-36.0); MONO % 6.6 % (0.0-8.0); NEUT % 66.7 % (16.0-70.0); PLATELET COUNT 189 TH/MM3 (150-450); RED BLOOD COUNT 4.54 MIL/MM3 (4.50-5.90); RED CELL DISTRIBUTION WIDTH 13.8 % (11.6-17.2); WHITE BLOOD COUNT 11.7 TH/MM3 (4.0-11.0)
[2016-12-06 19:29] LABS: AMPHETAMINE, URINE NEG (NEG); BACTERIA, URINE OCC /hpf; BARBITURATES, URINE NEG (NEG); BLOOD, URINE NEG (NEG); COCAINE, URINE NEG (NEG); COMMENT (UR) CULTURE INDICATED; CULTURE IF INDICATED CULTURE INDICATED; GLUCOSE,URINE NEG (NEG); KETONE, URINE NEG (NEG); NITRITE,URINE NEG (NEG); PH, URINE 6.5 (5.0-8.5); URINE COLOR YELLOW (YELLW/STRAW)
[2016-12-06 19:49] LABS: ALKALINE PHOSPHATASE 83 U/L (45-117); ALT (GPT) 36 U/L (12-78); ANION GAP 11 MEQ/L (5-15); AST (GOT) 40 U/L (15-37); BICARBONATE 24.8 MEQ/L (21.0-32.0); BLOOD UREA NITROGEN 15 MG/DL (7-18); CHLORIDE 105 MEQ/L (98-107); GLOMERULAR FILTRATION RATE 123 ML/MIN (>89); SODIUM (NA) 141 MEQ/L (136-145); TOTAL BILIRUBIN ADULT 0.5 MG/DL (0.2-1.0)
[2016-12-06] MEDS ORDERED: BACT800T5 PO (20:23)
== END 2016-12-07 06:52 | disposition home or self-care (01) ==
LOC: NEDAMB 17:53 → NEPD 12-07 06:52
DX: F10.129 Alcohol abuse with intoxication, unspecified (principal); N39.0 Urinary tract infection, site not specified; F41.9 Anxiety disorder, unspecified; F32.9 Major depressive disorder, single episode, unspecified; J44.9 Chronic obstructive pulmonary disease, unspecified; R56.9 Unspecified convulsions
CPT/HCPCS: 80053; 80307; 81001; 85025; 87077; 87086; 87186; 99284

== ENCOUNTER 2016-12-13 19:29 | Emergency (ER) | payer OTHER ==
[~2016-12-13] VITALS: Ht 170.2 cm; Wt 55.5 kg
[~2016-12-13 19:29] MED LIST changes: +BACT800T5 PO; -CARA1TAB6 PO; -LEXA10TA PO; -PANT20 PO; -REME15TA PO
[2016-12-13 19:47] VITALS: BP 143/80; PULSE 96; RESP 18; TEMP 98.9; O2SAT 93
--- NOTE | 2016-12-13 19:56 | PD ---
HPI Chief Complaint: psychiatric evaluation Time Seen by Provider: 19:51 Travel History International Travel<30 days: No Contact w/Intl Traveler<30days: No History of Present Illness HPI 46-year-old male presents to the emergency Department under Palencia act by local police. According to the Palencia act he was sitting on the sidewalk and told the officer that he was suicidal and wanted to . The patient states that he is not feeling well and is suicidal. Patient states that he drinks "to cope". He states that he is supposed to be on antidepressants, but cannot afford them. Patient states that he is homeless since June due to unemployment. He denies any elicit drug use. Patient denies any medical complaints at this time. PFSH Past Medical History Anxiety: Yes Depression: Yes Cardiovascular Problems: Yes (PALPITATIONS ) COPD: Yes Diminished Hearing: No Respiratory: Yes (COPD) Seizures: Yes (ETOH WITHDRAWL ) Social History Alcohol Use: Yes (Daily) Tobacco Use: Yes (2 PPD) Substance Use: No Allergies-Medications (Allergen,Severity, Reaction): Coded Allergies: Paxil (Verified Adverse Reaction, Intermediate, Confusion, 12/13/16) Reported Meds & Prescriptions Reported Meds & Active Scripts Active No Active Prescriptions or Reported Medications Review of Systems Except as stated in HPI: all other systems reviewed are Neg Physical Exam Narrative GENERAL: Well-nourished, well-developed male patient, ambulatory. Afebrile. SKIN: Focused skin assessment warm/dry. HEAD: Normocephalic. Atraumatic. EYES: No scleral icterus. No injection or drainage. NECK: Supple, trachea midline. No JVD or lymphadenopathy. CARDIOVASCULAR: Regular rate and rhythm without murmurs, gallops, or rubs. RESPIRATORY: Breath sounds equal bilaterally. No accessory muscle use. Lungs sounds are clear to auscultation. GASTROINTESTINAL: Abdomen soft, non-tender, nondistended. MUSCULOSKELETAL: No cyanosis, or edema. PSYCHIATRIC: No delusional thought processes. No hallucinations. Data Data Last Documented VS Vital Signs Date Time Temp Pulse Resp B/P Pulse Ox O2 Delivery O2 Flow Rate FiO2 12/13/16 19:47 98.9 96 18 143/80 93 Orders Complete Blood Count With Diff (12/13/16 19:49) Comprehensive Metabolic Panel (12/13/16 19:49) Psych Screen (12/13/16 19:49) Drug Screen, Random Urine (12/13/16 19:49) Alcohol (Ethanol) (12/13/16 19:49) Labs Laboratory Tests Test 12/13/16 12/13/16 20:08 20:18 White Blood Count 13.9 TH/MM3 Red Blood Count 5.13 MIL/MM3 Hemoglobin 16.6 GM/DL Hematocrit 48.1 % Mean Corpuscular Volume 93.9 FL Mean Corpuscular Hemoglobin 32.3 PG Mean Corpuscular Hemoglobin 34.4 % Concent Red Cell Distribution Width 13.7 % Platelet Count 219 TH/MM3 Mean Platelet Volume 8.7 FL Neutrophils (%) (Auto) 68.4 % Lymphocytes (%) (Auto) 22.2 % Monocytes (%) (Auto) 6.2 % Eosinophils (%) (Auto) 1.9 % Basophils (%) (Auto) 1.3 % Neutrophils # (Auto) 9.5 TH/MM3 Lymphocytes # (Auto) 3.1 TH/MM3 Monocytes # (Auto) 0.9 TH/MM3 Eosinophils # (Auto) 0.3 TH/MM3 Basophils # (Auto) 0.2 TH/MM3 CBC Comment DIFF FINAL Differential Comment Urine Opiates Screen NEG Urine Barbiturates Screen NEG Urine Amphetamines Screen NEG Urine Benzodiazepines Screen POS Urine Cocaine Screen NEG Urine Cannabinoids Screen NEG MDM Medical Decision Making Medical Screen Exam Complete: Yes Emergency Medical Condition: Yes Medical Record Reviewed: Yes Differential Diagnosis Depression versus alcohol abuse versus substance induced mood disorder versus malingering Narrative Course 46-year-old male presents to the emergency Department under Palencia act by local police for suicidal ideation. CBC, CMP, alcohol level, urine drug screen are ordered and pending CBC shows leukocytosis 13.9. UDS is positive for benzodiazepines. Upon no acute abnormalities in lab work, the patient will be medically cleared for psychiatric screening and disposition. Diagnosis Primary Impression: Substance induced mood disorder Additional Instructions: Patient is medically cleared for psychiatric screening and disposition. Scripts No Active Prescriptions or Reported Meds Condition: Stable Shirlene Molina Dec 13, 2016 19:56 Shirlene Molina Dec 13, 2016 19:56
[2016-12-13 20:16] LABS: AUTOMATED NEUTROPHIL # 9.5 TH/MM3 (1.8-7.7); BASOPHIL # 0.2 TH/MM3 (0-0.2); BASOPHIL % 1.3 % (0.0-2.0); EOSINOPHIL # 0.3 TH/MM3 (0-0.4); EOSINOPHIL % 1.9 % (0.0-4.0); HEMATOCRIT 48.1 % (39.0-51.0); HEMO FLAGS DIFF FINAL; LYMPH % 22.2 % (9.0-44.0); LYMPHOCYTE # 3.1 TH/MM3 (1.0-4.8); MEAN CELL VOLUME 93.9 FL (80.0-100.0); MEAN CORPUSCULAR HEMOGLOBIN 32.3 PG (27.0-34.0); MEAN CORPUSCULAR HGB CONC 34.4 % (32.0-36.0); MONO % 6.2 % (0.0-8.0); NEUT % 68.4 % (16.0-70.0); PLATELET COUNT 219 TH/MM3 (150-450); RED BLOOD COUNT 5.13 MIL/MM3 (4.50-5.90); RED CELL DISTRIBUTION WIDTH 13.7 % (11.6-17.2); WHITE BLOOD COUNT 13.9 TH/MM3 (4.0-11.0)
[2016-12-13 20:41] LABS: AMPHETAMINE, URINE NEG (NEG); BARBITURATES, URINE NEG (NEG); COCAINE, URINE NEG (NEG)
[2016-12-13 20:48] LABS: ANION GAP 14 MEQ/L (5-15)
[2016-12-13 20:51] LABS: ALKALINE PHOSPHATASE 96 U/L (45-117); ALT (GPT) 48 U/L (12-78); AST (GOT) 22 U/L (15-37); BICARBONATE 20.5 MEQ/L (21.0-32.0); BLOOD UREA NITROGEN 18 MG/DL (7-18); CHLORIDE 107 MEQ/L (98-107); GLOMERULAR FILTRATION RATE 85 ML/MIN (>89); POTASSIUM 4.1 MEQ/L (3.5-5.1); SODIUM (NA) 141 MEQ/L (136-145); TOTAL BILIRUBIN ADULT 0.4 MG/DL (0.2-1.0)
[2016-12-13 22:00] VITALS: BP 143/73; PULSE 103; RESP 19; O2SAT 95
[2016-12-14 02:00] VITALS: BP 118/62; PULSE 100; RESP 18; O2SAT 99
[2016-12-14 06:33] VITALS: BP 115/67; PULSE 79; RESP 19; O2SAT 97
--- NOTE | 2016-12-14 13:56 | PD ---
History of Present Illness Chief Complaint: Psychiatric Symptoms Time Seen by Provider: 13:45 Travel History International Travel<30 Days: No Contact w/Intl Traveler<30days: No Known affected area: No Legal Status Legal Status: Palencia Act Palencia Act Signed By: Deysi Medina History of Present Illness: This is a 46-year-old male who became intoxicated last night and made suicidal statements. He is now sober and denies being suicidal, homicidal or psychotic. His cognition is intact and he verbally contracts for safety. Apparently he is a binge drinker and does so several times per week. He was advised by this physician to stop drinking alcohol. PFSH Past Medical History Medical History: Denies Significant Hx Anxiety: Yes Depression: Yes Cardiovascular Problems: Yes (PALPITATIONS ) COPD: Yes Diminished Hearing: No Medical other: Yes (brain injury) Respiratory: Yes (COPD) Seizures: Yes (ETOH WITHDRAWL ) Psychiatric History Psychiatric History Hx Psychiatric Treatment: HX OF ANXIETY, PTSD AND DEPRESSION History of Inpatient Treatment: Yes Social History Hx Alcohol Use: Yes Hx Tobacco Use: No Hx Substance Use: No Substance Use Type: Alcohol, Nicotine/Cigarettes, Cocaine Hx of Substance Use Treatment: Yes Allergies-Medications (Allergen,Severity, Reaction): Coded Allergies: Paxil (Verified Adverse Reaction, Intermediate, Confusion, 12/13/16) Reported Meds & Prescriptions Reported Meds & Active Scripts Active No Active Prescriptions or Reported Medications Review of Systems ROS Limitations: Clinical Condition Exam Exam Limitations: Clinical Condition Alert: Yes [place]: Person, Place, Date, Situation Mood: Calm Affect: Appropriate Speech: Clear, Logical Eye Contact: Normal Memory Intact: Immediate, Recent, Remote Insight/Judgement Adequate except for alcohol abuse. [facility] Medical Decision Making Medical Record Reviewed: Yes Assessment/Plan At this time the patient is sober and no longer meets criteria for Palencia act or for inpatient psychiatric hospitalization. His Palencia act is being lifted and he is being discharged home. He was advised to stop drinking alcohol in a binge -like fashion. Orders Complete Blood Count With Diff (12/13/16 19:49) Comprehensive Metabolic Panel (12/13/16 19:49) Psych Screen (12/13/16 19:49) Drug Screen, Random Urine (12/13/16 19:49) Alcohol (Ethanol) (12/13/16 19:49) Diet Regular Basic (12/14/16 Breakfast) Diet Regular Basic (12/14/16 Lunch) Results Vital Signs Date Time Temp Pulse Resp B/P Pulse Ox O2 Delivery O2 Flow Rate FiO2 12/14/16 06:33 79 19 115/67 97 Room Air 12/14/16 02:00 100 18 118/62 99 Room Air 12/13/16 22:00 103 19 143/73 95 Room Air 12/13/16 19:47 98.9 96 18 143/80 93 Laboratory Tests Test 12/13/16 12/13/16 20:08 20:18 White Blood Count 13.9 Red Blood Count 5.13 Hemoglobin 16.6 Hematocrit 48.1 Mean Corpuscular Volume 93.9 Mean Corpuscular Hemoglobin 32.3 Mean Corpuscular Hemoglobin 34.4 Concent Red Cell Distribution Width 13.7 Platelet Count 219 Mean Platelet Volume 8.7 Neutrophils (%) (Auto) 68.4 Lymphocytes (%) (Auto) 22.2 Monocytes (%) (Auto) 6.2 Eosinophils (%) (Auto) 1.9 Basophils (%) (Auto) 1.3 Neutrophils # (Auto) 9.5 Lymphocytes # (Auto) 3.1 Monocytes # (Auto) 0.9 Eosinophils # (Auto) 0.3 Basophils # (Auto) 0.2 CBC Comment DIFF FINAL Differential Comment Sodium Level 141 Potassium Level 4.1 Chloride Level 107 Carbon Dioxide Level 20.5 Anion Gap 14 Blood Urea Nitrogen 18 Creatinine 0.95 Estimat Glomerular Filtration 85 Rate Random Glucose 120 Calcium Level 9.5 Total Bilirubin 0.4 Aspartate Amino Transf 22 (AST/SGOT) Alanine Aminotransferase 48 (ALT/SGPT) Alkaline Phosphatase 96 Total Protein 7.5 Albumin 3.9 Ethyl Alcohol Level 231 Urine Opiates Screen NEG Urine Barbiturates Screen NEG Urine Amphetamines Screen NEG Urine Benzodiazepines Screen POS Urine Cocaine Screen NEG Urine Cannabinoids Screen NEG Diagnosis Primary Impression: Alcohol abuse Additional Instructions: Patient is medically cleared for psychiatric screening and disposition. Prescriptions No Active Prescriptions or Reported Meds Condition: Stable Jason Razo MD Dec 14, 2016 13:56
== END 2016-12-14 14:55 | disposition home or self-care (01) ==
LOC: NEPD 19:29 → NEPJ 12-14 14:55
DX: F39 Unspecified mood [affective] disorder (principal); F10.10 Alcohol abuse, uncomplicated; R00.2 Palpitations; J44.9 Chronic obstructive pulmonary disease, unspecified; F17.210 Nicotine dependence, cigarettes, uncomplicated; R45.851 Suicidal ideations
CPT/HCPCS: 80053; 80307; 85025; 99284

== ENCOUNTER 2016-12-15 01:06 | Emergency (ER) | payer OTHER ==
[~2016-12-15] VITALS: Ht 170.2 cm; Wt 73.0 kg
[2016-12-15] MEDS ORDERED: chlordiazePOXIDE 25 MG CAP PO STA (01:15)
[2016-12-15 01:19] VITALS: BP 121/74; PULSE 110; RESP 18; TEMP 98.3; O2SAT 96
--- NOTE | 2016-12-15 01:21 | PD ---
HPI Chief Complaint: Psychiatric Symptoms Time Seen by Provider: 01:10 Travel History International Travel<30 days: No Contact w/Intl Traveler<30days: No Traveled to known affect area: No History of Present Illness HPI The patient is a 46-year-old male who presents emergency department via EMS as a Palencia act from [facility]. According to the Palencia act the patient has been drinking alcohol, was placed under Palencia act, because the police. He would suffer from neglect. The patient does admit to drinking heavily, states he drank a gallon of vodka and for "[place]" earlier today. The patient does have a history of alcoholism and has been Palencia acted and seen in emergency department multiple previous visits. The patient states he sometimes has thoughts of suicide, but does not currently have a suicide plan. The patient does admit to a previous suicide attempt by drinking "patent and her ", however , was found by his mother. The patient denies any hallucinations or delusions. He denies any current illicit drug use. Symptoms are moderate, possibly exacerbated by alcohol use, and there are no current alleviating factors. PFSH Past Medical History Anxiety: Yes Depression: Yes Cardiovascular Problems: Yes (PALPITATIONS ) COPD: Yes Diminished Hearing: No Respiratory: Yes (COPD) Seizures: Yes (ETOH WITHDRAWL ) Social History Alcohol Use: Yes Tobacco Use: No Substance Use: No Allergies-Medications (Allergen,Severity, Reaction): Coded Allergies: Paxil (Verified Adverse Reaction, Intermediate, Confusion, 12/15/16) Reported Meds & Prescriptions Reported Meds & Active Scripts Active No Active Prescriptions or Reported Medications Review of Systems Except as stated in HPI: all other systems reviewed are Neg Cardiovascular: No: Chest Pain or Discomfort Respiratory: No: Shortness of Breath Gastrointestinal: No: Nausea, Vomiting, Abdominal Pain Musculoskeletal: No: Weakness Neurologic: No: Weakness Psychiatric: Positive: Depression, Suicidal Ideations, Substance Abuse, No: Disorder of Thought, Homicidal Ideation Physical Exam Narrative GENERAL: Awake, alert, intoxicated 46-year-old male appears his stated age and is in no acute respiratory distress. SKIN: Focused skin assessment warm/dry. HEAD: Atraumatic. Normocephalic. Abrasions noted over the anterior aspect of the knees bilaterally. EYES: Pupils equal and round. Mild bilateral injection. ENT: No nasal bleeding or discharge. Breath smells of alcohol.. NECK: Trachea midline. No JVD. CARDIOVASCULAR: Regular rate and rhythm. No murmur appreciated. RESPIRATORY: No accessory muscle use. Clear to auscultation. Breath sounds equal bilaterally. GASTROINTESTINAL: Abdomen soft, mild diffuse tenderness. No rebound tenderness , guarding, rigidity. MUSCULOSKELETAL: No obvious deformities. No clubbing. No cyanosis. No edema. NEUROLOGICAL: Awake and alert. No obvious cranial nerve deficits. Motor grossly within normal limits. Normal speech. Nonfocal. Oriented 4. PSYCHIATRIC: Flat affect. Data Data Last Documented VS Vital Signs Date Time Temp Pulse Resp B/P Pulse Ox O2 Delivery O2 Flow Rate FiO2 12/15/16 01:19 98.3 110 18 121/74 96 Room Air Orders Complete Blood Count With Diff (12/15/16 01:15) Comprehensive Metabolic Panel (12/15/16 01:15) Psych Screen (12/15/16 01:15) Drug Screen, Random Urine (12/15/16 01:15) Alcohol (Ethanol) (12/15/16 01:15) Lipase (12/15/16 01:15) Chlordiazepoxide (Librium) (12/15/16 01:15) Labs Laboratory Tests Test 12/15/16 12/15/16 01:23 01:26 White Blood Count 13.1 TH/MM3 Red Blood Count 4.77 MIL/MM3 Hemoglobin 15.5 GM/DL Hematocrit 44.7 % Mean Corpuscular Volume 93.8 FL Mean Corpuscular Hemoglobin 32.5 PG Mean Corpuscular Hemoglobin 34.6 % Concent Red Cell Distribution Width 13.3 % Platelet Count 228 TH/MM3 Mean Platelet Volume 8.2 FL Neutrophils (%) (Auto) 62.9 % Lymphocytes (%) (Auto) 24.1 % Monocytes (%) (Auto) 8.8 % Eosinophils (%) (Auto) 3.0 % Basophils (%) (Auto) 1.2 % Neutrophils # (Auto) 8.2 TH/MM3 Lymphocytes # (Auto) 3.2 TH/MM3 Monocytes # (Auto) 1.2 TH/MM3 Eosinophils # (Auto) 0.4 TH/MM3 Basophils # (Auto) 0.2 TH/MM3 CBC Comment DIFF FINAL Differential Comment Sodium Level 140 MEQ/L Potassium Level 3.7 MEQ/L Chloride Level 104 MEQ/L Carbon Dioxide Level 25.9 MEQ/L Anion Gap 10 MEQ/L Blood Urea Nitrogen 19 MG/DL Creatinine 0.85 MG/DL Estimat Glomerular Filtration 97 ML/MIN Rate Random Glucose 109 MG/DL Calcium Level 8.4 MG/DL Total Bilirubin 0.4 MG/DL Aspartate Amino Transf 35 U/L (AST/SGOT) Alanine Aminotransferase 55 U/L (ALT/SGPT) Alkaline Phosphatase 93 U/L Total Protein 7.0 GM/DL Albumin 3.7 GM/DL Lipase 121 U/L Ethyl Alcohol Level 166 MG/DL Urine Opiates Screen NEG Urine Barbiturates Screen NEG Urine Amphetamines Screen NEG Urine Benzodiazepines Screen POS Urine Cocaine Screen NEG Urine Cannabinoids Screen NEG MDM Medical Decision Making Medical Screen Exam Complete: Yes Emergency Medical Condition: Yes Medical Record Reviewed: Yes Interpretation(s) Laboratory Tests Test 12/15/16 12/15/16 01:23 01:26 White Blood Count 13.1 TH/MM3 Red Blood Count 4.77 MIL/MM3 Hemoglobin 15.5 GM/DL Hematocrit 44.7 % Mean Corpuscular Volume 93.8 FL Mean Corpuscular Hemoglobin 32.5 PG Mean Corpuscular Hemoglobin 34.6 % Concent Red Cell Distribution Width 13.3 % Platelet Count 228 TH/MM3 Mean Platelet Volume 8.2 FL Neutrophils (%) (Auto) 62.9 % Lymphocytes (%) (Auto) 24.1 % Monocytes (%) (Auto) 8.8 % Eosinophils (%) (Auto) 3.0 % Basophils (%) (Auto) 1.2 % Neutrophils # (Auto) 8.2 TH/MM3 Lymphocytes # (Auto) 3.2 TH/MM3 Monocytes # (Auto) 1.2 TH/MM3 Eosinophils # (Auto) 0.4 TH/MM3 Basophils # (Auto) 0.2 TH/MM3 CBC Comment DIFF FINAL Differential Comment Sodium Level 140 MEQ/L Potassium Level 3.7 MEQ/L Chloride Level 104 MEQ/L Carbon Dioxide Level 25.9 MEQ/L Anion Gap 10 MEQ/L Blood Urea Nitrogen 19 MG/DL Creatinine 0.85 MG/DL Estimat Glomerular Filtration 97 ML/MIN Rate Random Glucose 109 MG/DL Calcium Level 8.4 MG/DL Total Bilirubin 0.4 MG/DL Aspartate Amino Transf 35 U/L (AST/SGOT) Alanine Aminotransferase 55 U/L (ALT/SGPT) Alkaline Phosphatase 93 U/L Total Protein 7.0 GM/DL Albumin 3.7 GM/DL Lipase 121 U/L Ethyl Alcohol Level 166 MG/DL Urine Opiates Screen NEG Urine Barbiturates Screen NEG Urine Amphetamines Screen NEG Urine Benzodiazepines Screen POS Urine Cocaine Screen NEG Urine Cannabinoids Screen NEG Differential Diagnosis Differential diagnoses includes alcohol abuse, call dependence, alcohol intoxication, substance induced mood disorder, suicidal ideation, depressive disorder NOS, mood disorder. Narrative Course IV was established, labs are drawn and sent, and the patient was placed on cardiac telemetry monitoring and continuous pulse oximetry monitoring. The patient was administered Librium 25 mg orally. Psychiatric evaluation was ordered. Labs were noted, alkaline level was 166. Patient is medically clear to be evaluated by psychiatry. Disposition as per psych. Diagnosis Primary Impression: Alcohol abuse Additional Impression: Substance induced mood disorder Scripts No Active Prescriptions or Reported Meds Condition: Stable Bruno Zarate MD Dec 15, 2016 01:21
[2016-12-15 01:32] LABS: AUTOMATED NEUTROPHIL # 8.2 TH/MM3 (1.8-7.7); BASOPHIL # 0.2 TH/MM3 (0-0.2); BASOPHIL % 1.2 % (0.0-2.0); EOSINOPHIL # 0.4 TH/MM3 (0-0.4); HEMATOCRIT 44.7 % (39.0-51.0); HEMO FLAGS DIFF FINAL; LYMPH % 24.1 % (9.0-44.0); LYMPHOCYTE # 3.2 TH/MM3 (1.0-4.8); MEAN CELL VOLUME 93.8 FL (80.0-100.0); MEAN CORPUSCULAR HEMOGLOBIN 32.5 PG (27.0-34.0); MEAN CORPUSCULAR HGB CONC 34.6 % (32.0-36.0); MONO % 8.8 % (0.0-8.0); NEUT % 62.9 % (16.0-70.0); PLATELET COUNT 228 TH/MM3 (150-450); RED BLOOD COUNT 4.77 MIL/MM3 (4.50-5.90); RED CELL DISTRIBUTION WIDTH 13.3 % (11.6-17.2); WHITE BLOOD COUNT 13.1 TH/MM3 (4.0-11.0)
[2016-12-15 01:51] LABS: AMPHETAMINE, URINE NEG (NEG); BARBITURATES, URINE NEG (NEG); COCAINE, URINE NEG (NEG)
[2016-12-15 01:57] LABS: ALKALINE PHOSPHATASE 93 U/L (45-117); TOTAL BILIRUBIN ADULT 0.4 MG/DL (0.2-1.0)
[2016-12-15 02:15] LABS: ALT (GPT) 55 U/L (12-78); ANION GAP 10 MEQ/L (5-15); AST (GOT) 35 U/L (15-37); BICARBONATE 25.9 MEQ/L (21.0-32.0); BLOOD UREA NITROGEN 19 MG/DL (7-18); CHLORIDE 104 MEQ/L (98-107); GLOMERULAR FILTRATION RATE 97 ML/MIN (>89); POTASSIUM 3.7 MEQ/L (3.5-5.1); SODIUM (NA) 140 MEQ/L (136-145)
[2016-12-15] MEDS ORDERED: IBUPROFEN 600 MG TAB PO PRN (03:15)
[2016-12-15] MEDS ORDERED: LORazepam 2 MG/ML VIAL IV PUSH PRN ×4 (03:15)
[2016-12-15] MEDS ORDERED: ACETAMINOPHEN 325 MG TAB PO PRN (03:15)
[2016-12-15] MEDS ORDERED: LORazepam 2 MG TAB PO PRN (03:15)
[2016-12-15] MEDS ORDERED: ONDANSETRON HCL 4 MG/2 ML VIAL IV PUSH PRN (03:15)
[2016-12-15] MEDS ORDERED: LORazepam 1 MG TAB PO PRN (03:15)
[2016-12-15] MEDS ORDERED: FLUMAZENIL 0.5 MG/5 ML VIAL IV PUSH PRN (03:15)
[2016-12-15 04:34] VITALS: BP 105/62; PULSE 110; RESP 18; O2SAT 96
[2016-12-15 06:00] VITALS: BP 119/61; PULSE 97; RESP 18; O2SAT 95
[2016-12-15 10:25] VITALS: BP 129/84; PULSE 76; RESP 18
[2016-12-15 13:30] VITALS: BP 146/59; PULSE 72; RESP 18
== END 2016-12-15 18:51 ==
LOC: NEPE 01:06 → NEPJ 18:51
DX: F10.10 Alcohol abuse, uncomplicated (principal); F39 Unspecified mood [affective] disorder; F41.9 Anxiety disorder, unspecified; F32.9 Major depressive disorder, single episode, unspecified; J44.9 Chronic obstructive pulmonary disease, unspecified
CPT/HCPCS: 80053; 80307; 83690; 85025; 99284

== ENCOUNTER 2017-03-06 04:43 | Emergency (ER) | payer OTHER ==
[~2017-03-06] VITALS: Ht 172.7 cm; Wt 75.0 kg
[2017-03-06] MEDS ORDERED: FAMOTIDINE 20 MG TAB PO ONE (05:00)
[2017-03-06] MEDS ORDERED: ONDANSETRON ODT 4 MG TAB PO ONE (05:00)
--- NOTE | 2017-03-06 05:18 | PD ---
HPI Chief Complaint: Psychiatric Symptoms Time Seen by Provider: 05:15 Travel History International Travel<30 days: No Contact w/Intl Traveler<30days: No Traveled to known affect area: No History of Present Illness HPI 46-year-old white male presents to emergency department under Palencia act by PD. The patient was found sleeping behind a store this evening. The patient admits to alcohol consumption. He is a chronic alcoholic. He had advised PD that he was feeling depressed and suicidal. He was placed under Palencia act and brought to the ER. The patient states that he was just seen yesterday at [facility] due to his alcohol consumption. The patient today states that he drinks a large amount of vodka daily. He is also had some epigastric tenderness with nausea. He has had what he reports his dark stools. Patient denies any toxic ingestions. No homicidal ideation. Patient is currently homeless. He has moved to the area since September from [place]. [facility] Past Medical History Anxiety: Yes Depression: Yes Cardiovascular Problems: Yes (PALPITATIONS ) COPD: Yes Diminished Hearing: No Respiratory: Yes (COPD) Seizures: Yes (ETOH WITHDRAWL ) Tetanus Vaccination: Unknown Past Surgical History Surgical History: No Previous Surgery Social History Alcohol Use: Yes (everyday) Tobacco Use: No Substance Use: No Allergies-Medications (Allergen,Severity, Reaction): Coded Allergies: Paxil (Verified Adverse Reaction, Intermediate, Confusion, 03/06/17) Reported Meds & Prescriptions Reported Meds & Active Scripts Active No Active Prescriptions or Reported Medications Review of Systems Except as stated in HPI: all other systems reviewed are Neg Physical Exam Narrative GENERAL: Well-nourished, well-developed patient. SKIN: Warm and dry. HEAD: Normocephalic and atraumatic. EYES: No scleral icterus. No injection or drainage. ENT: No nasal drainage noted. Mucous membranes pink. Airway patent. NECK: Supple, trachea midline. Moves head freely without obvious discomfort. CARDIOVASCULAR: Regular rate and rhythm without murmurs, gallops, or rubs. RESPIRATORY: Breath sounds equal bilaterally. No accessory muscle use. GASTROINTESTINAL: Abdomen soft, non-tender, nondistended. EXTREMITIES: No cyanosis or edema. BACK: Nontender without obvious deformity. No CVA tenderness. NEURO: Patient is alert and oriented. no sensorimotor deficits. Nonfocal. Normal speech. PSYCH: No delusions. No auditory or visual hallucinations. Rectal: Light brown stool no masses or lesions. Data Data Last Documented VS Vital Signs Date Time Temp Pulse Resp B/P Pulse Ox O2 Delivery O2 Flow Rate FiO2 03/06/17 06:31 63 20 03/06/17 05:31 97.6 129/78 97 Orders Complete Blood Count With Diff (03/06/17 05:00) Comprehensive Metabolic Panel (03/06/17 05:00) Psych Screen (03/06/17 05:00) Drug Screen, Random Urine (03/06/17 05:00) Alcohol (Ethanol) (03/06/17 05:00) Salicylates (Aspirin) (03/06/17 05:00) Tylenol (Acetaminophen) (03/06/17 05:00) Lipase (03/06/17 05:00) Ondansetron Odt (Zofran Odt) (03/06/17 05:00) Famotidine (Pepcid) (03/06/17 05:00) Labs Laboratory Tests Test 03/06/17 06:00 White Blood Count 8.9 TH/MM3 Red Blood Count 4.88 MIL/MM3 Hemoglobin 15.3 GM/DL Hematocrit 44.2 % Mean Corpuscular Volume 90.5 FL Mean Corpuscular Hemoglobin 31.3 PG Mean Corpuscular Hemoglobin 34.6 % Concent Red Cell Distribution Width 13.6 % Platelet Count 210 TH/MM3 Mean Platelet Volume 8.7 FL Neutrophils (%) (Auto) 61.9 % Lymphocytes (%) (Auto) 29.0 % Monocytes (%) (Auto) 5.2 % Eosinophils (%) (Auto) 3.2 % Basophils (%) (Auto) 0.7 % Neutrophils # (Auto) 5.5 TH/MM3 Lymphocytes # (Auto) 2.6 TH/MM3 Monocytes # (Auto) 0.5 TH/MM3 Eosinophils # (Auto) 0.3 TH/MM3 Basophils # (Auto) 0.1 TH/MM3 CBC Comment DIFF FINAL Differential Comment Salicylates Level 2.0 MG/DL MDM Medical Decision Making Medical Screen Exam Complete: Yes Emergency Medical Condition: Yes Medical Record Reviewed: Yes Interpretation(s) Laboratory Tests Test 03/06/17 06:00 White Blood Count 8.9 TH/MM3 Red Blood Count 4.88 MIL/MM3 Hemoglobin 15.3 GM/DL Hematocrit 44.2 % Mean Corpuscular Volume 90.5 FL Mean Corpuscular Hemoglobin 31.3 PG Mean Corpuscular Hemoglobin 34.6 % Concent Red Cell Distribution Width 13.6 % Platelet Count 210 TH/MM3 Mean Platelet Volume 8.7 FL Neutrophils (%) (Auto) 61.9 % Lymphocytes (%) (Auto) 29.0 % Monocytes (%) (Auto) 5.2 % Eosinophils (%) (Auto) 3.2 % Basophils (%) (Auto) 0.7 % Neutrophils # (Auto) 5.5 TH/MM3 Lymphocytes # (Auto) 2.6 TH/MM3 Monocytes # (Auto) 0.5 TH/MM3 Eosinophils # (Auto) 0.3 TH/MM3 Basophils # (Auto) 0.1 TH/MM3 CBC Comment DIFF FINAL Differential Comment Salicylates Level 2.0 MG/DL Differential Diagnosis MDM: High Differential diagnoses: Schizophrenia, schizoaffective disorder, bipolar, anxiety, depression, adjustment reaction, mood disorder NOS, ODD, depressive disorder NOS, dementia, dementia with agitation, psychosis NOS, substance induced mood disorder, intermittent explosive disorder, Asperger syndrome, infection,electrolyte abnormality, malingering. Narrative Course Mental health screening discussed with the patient. Psychiatric screen ordered. This is alcohol intoxication, alcohol dependence, malingering Diagnosis Primary Impression: Alcohol intoxication Qualified Code: F10.920 - Alcohol intoxication, uncomplicated Additional Impressions: Alcohol dependence Qualified Code: F10.20 - Uncomplicated alcohol dependence Malingering Scripts No Active Prescriptions or Reported Meds Condition: Tramaine Wilder Mar 06, 2017 05:18
[2017-03-06 05:19] VITALS: BP 129/78; PULSE 94; RESP 20; TEMP 97.6; O2SAT 97
[2017-03-06 05:31] VITALS: BP 129/78; PULSE 94; RESP 20; TEMP 97.6; O2SAT 97
[2017-03-06 06:33] LABS: AUTOMATED NEUTROPHIL # 5.5 TH/MM3 (1.8-7.7); BASOPHIL # 0.1 TH/MM3 (0-0.2); BASOPHIL % 0.7 % (0.0-2.0); EOSINOPHIL # 0.3 TH/MM3 (0-0.4); EOSINOPHIL % 3.2 % (0.0-4.0); HEMATOCRIT 44.2 % (39.0-51.0); HEMO FLAGS DIFF FINAL; LYMPHOCYTE # 2.6 TH/MM3 (1.0-4.8); MEAN CELL VOLUME 90.5 FL (80.0-100.0); MEAN CORPUSCULAR HEMOGLOBIN 31.3 PG (27.0-34.0); MEAN CORPUSCULAR HGB CONC 34.6 % (32.0-36.0); MONO % 5.2 % (0.0-8.0); NEUT % 61.9 % (16.0-70.0); PLATELET COUNT 210 TH/MM3 (150-450); RED BLOOD COUNT 4.88 MIL/MM3 (4.50-5.90); RED CELL DISTRIBUTION WIDTH 13.6 % (11.6-17.2); WHITE BLOOD COUNT 8.9 TH/MM3 (4.0-11.0)
[2017-03-06 06:46] LABS: ALT (GPT) 29 U/L (12-78)
[2017-03-06 06:49] LABS: ACETAMINOPHEN LESS THAN 2.0 MCG/ML (10.0-30.0); ALKALINE PHOSPHATASE 67 U/L (45-117); ANION GAP 9 MEQ/L (5-15); AST (GOT) 22 U/L (15-37); BICARBONATE 26.9 MEQ/L (21.0-32.0); BLOOD UREA NITROGEN 11 MG/DL (7-18); CHLORIDE 112 MEQ/L (98-107); GLOMERULAR FILTRATION RATE 81 ML/MIN (>89); POTASSIUM 3.7 MEQ/L (3.5-5.1); SODIUM (NA) 148 MEQ/L (136-145); TOTAL BILIRUBIN ADULT 0.4 MG/DL (0.2-1.0)
[2017-03-06 08:25] VITALS: BP 120/78; PULSE 72; RESP 16; TEMP 97.8; O2SAT 99
[2017-03-06 11:18] LABS: AMPHETAMINE, URINE NEG (NEG); BARBITURATES, URINE NEG (NEG); COCAINE, URINE NEG (NEG)
--- NOTE | 2017-03-06 12:03 | PD ---
History of Present Illness Chief Complaint: Psychiatric Symptoms Time Seen by Provider: 12:00 Travel History International Travel<30 Days: No Contact w/Intl Traveler<30days: No Known affected area: No Legal Status Legal Status: Palencia Act Palencia Act Signed By: Deysi Medina Palencia Act Comment: BA signed by: JONE MAYFIELD Badge#[id number], Case# [id number] History of Present Illness: History of Present Illness HPI 46-year-old white male with history of alcohol dependence who presents to emergency department under Palencia act by PD. As per the BA the police made contact with the patient in reference to being trespassed. After being trespassed the patient stated that he wished he was and that he was going to find a train and lay down in front of it because he had lost his job and his wallet and had nothing to live for. The patient is well known to [facility] as he has had multiple visits for alcohol related issues since he moved to the area in September. He is currently homeless. His BAl on arrival is 190. Patient was monitored in j pod and he presented no behavioral concerns and no suicidality. Patient is seen with J pod RN. He is alert, oriented and he is clinically sober. There is no psychosis and no yulia. No significant symptoms of depression. At this time he is denying any suicidal or homicidal ideation, intent or plan. He is requesting discharge and I find no criteria to keep him under a BA. When asked regarding reason for admission he states " I was drinking ". The patient was found sleeping behind a store this evening. The patient admits to alcohol consumption. He is a chronic alcoholic. He had advised PD that he was feeling depressed and suicidal. He was placed under Palencia act and brought to the ER. The patient states that he was just seen yesterday at [facility] due to his alcohol consumption. The patient today states that he drinks a large amount of vodka daily. He is also had some epigastric tenderness with nausea. He has had what he reports his dark stools. Patient denies any toxic ingestions. No homicidal ideation. Patient is currently homeless. He has moved to the area since September from [place]. PFSH Past Medical History Anxiety: Yes Depression: Yes Cardiovascular Problems: Yes (PALPITATIONS ) COPD: Yes Diminished Hearing: No Medical other: Yes (ETOH ABUSE) Respiratory: Yes (COPD) Seizures: Yes (ETOH WITHDRAWL ) Tetanus Vaccination: Unknown Influenza Vaccination: No Past Surgical History Surgical History: No Previous Surgery Psychiatric History Psychiatric History Hx Psychiatric Treatment: ReportedHX OF ANXIETY, PTSD AND DEPRESSION History of Inpatient Treatment: Yes Guns or firearms in home: No Social History single male. originally from [place]. Currently homeless. Hx Alcohol Use: Yes (1 1/2 pt. vodka per day) Hx Tobacco Use: No Hx Substance Use: No Substance Use Type: Alcohol, Nicotine/Cigarettes, Cocaine Hx of Substance Use Treatment: Yes Family Psychiatric History negative Allergies-Medications (Allergen,Severity, Reaction): Coded Allergies: Paxil (Verified Adverse Reaction, Intermediate, Confusion, 03/06/17) Reported Meds & Prescriptions Reported Meds & Active Scripts Active No Active Prescriptions or Reported Medications Review of Systems Except as stated in HPI: all other systems reviewed are Neg Exam Alert: Yes [place]: Person (ox4) Mood: Calm Affect: Appropriate Eye Contact: Normal Memory Intact: Comment (No impairmetn) Hallucinations: Other (negative) Delusions: No Suicidal: Ideation (deneis any) Homicidal: Ideation (denies any) Insight/Judgement Poor. Poor MDM Medical Decision Making Medical Record Reviewed: Yes Assessment/Plan 46 year old with history of alcohol dependence who is under a BA for suicidal ideation which were made in context of being trespassed by the police and while intoxicated. At this time the patient is clinically sober and denies any suicidal or homicidal ideation, intent or plan. BA will be lifted. Counseled on substance use. Recommend AA Orders Complete Blood Count With Diff (03/06/17 05:00) Comprehensive Metabolic Panel (03/06/17 05:00) Psych Screen (03/06/17 05:00) Drug Screen, Random Urine (03/06/17 05:00) Alcohol (Ethanol) (03/06/17 05:00) Salicylates (Aspirin) (03/06/17 05:00) Tylenol (Acetaminophen) (03/06/17 05:00) Lipase (03/06/17 05:00) Ondansetron Odt (Zofran Odt) (03/06/17 05:00) Famotidine (Pepcid) (03/06/17 05:00) Diet Regular Basic (03/06/17 Breakfast) Diet Regular Basic (03/06/17 Lunch) Results Vital Signs Date Time Temp Pulse Resp B/P Pulse Ox O2 Delivery O2 Flow Rate FiO2 03/06/17 08:25 97.8 72 16 120/78 99 Room Air 03/06/17 07:30 67 17 03/06/17 06:31 63 20 03/06/17 05:31 97.6 94 20 129/78 97 03/06/17 05:19 97.6 94 20 129/78 97 Laboratory Tests Test 03/06/17 03/06/17 06:00 10:45 White Blood Count 8.9 Red Blood Count 4.88 Hemoglobin 15.3 Hematocrit 44.2 Mean Corpuscular Volume 90.5 Mean Corpuscular Hemoglobin 31.3 Mean Corpuscular Hemoglobin 34.6 Concent Red Cell Distribution Width 13.6 Platelet Count 210 Mean Platelet Volume 8.7 Neutrophils (%) (Auto) 61.9 Lymphocytes (%) (Auto) 29.0 Monocytes (%) (Auto) 5.2 Eosinophils (%) (Auto) 3.2 Basophils (%) (Auto) 0.7 Neutrophils # (Auto) 5.5 Lymphocytes # (Auto) 2.6 Monocytes # (Auto) 0.5 Eosinophils # (Auto) 0.3 Basophils # (Auto) 0.1 CBC Comment DIFF FINAL Differential Comment Sodium Level 148 Potassium Level 3.7 Chloride Level 112 Carbon Dioxide Level 26.9 Anion Gap 9 Blood Urea Nitrogen 11 Creatinine 0.99 Estimat Glomerular Filtration 81 Rate Random Glucose 127 Calcium Level 7.7 Total Bilirubin 0.4 Aspartate Amino Transf 22 (AST/SGOT) Alanine Aminotransferase 29 (ALT/SGPT) Alkaline Phosphatase 67 Total Protein 5.9 Albumin 3.2 Lipase 235 Salicylates Level 2.0 Acetaminophen Level LESS THAN 2.0 Ethyl Alcohol Level 190 Urine Opiates Screen NEG Urine Barbiturates Screen NEG Urine Amphetamines Screen NEG Urine Benzodiazepines Screen NEG Urine Cocaine Screen NEG Urine Cannabinoids Screen NEG Diagnosis Primary Impression: Alcohol intoxication Additional Impressions: Alcohol dependence Malingering Psychiatrically Cleared: Yes Prescriptions No Active Prescriptions or Reported Meds Condition: Stable Problem Qualifiers Primary Impression: Alcohol intoxication Qualified Code: F10.920 - Alcohol intoxication, uncomplicated Additional Impressions: Alcohol dependence Qualified Code: F10.20 - Uncomplicated alcohol dependence Lakeshia Kirk Mar 06, 2017 12:03
[2017-03-06 12:08] VITALS: BP 120/78; PULSE 72; RESP 16; O2SAT 98
== END 2017-03-06 13:56 | disposition home or self-care (01) ==
LOC: NEPD 04:43 → NEPJ 13:56
DX: F10.220 Alcohol dependence with intoxication, uncomplicated (principal); Y90.6 Blood alcohol level of 120-199 mg/100 ml; Z59.0 Homelessness
CPT/HCPCS: 80053; 80307; 83690; 85025; 99284

== ENCOUNTER 2017-03-07 16:56 | Emergency (ER) | payer SELFPAY ==
[~2017-03-07] VITALS: Ht 177.8 cm; Wt 75.0 kg
[2017-03-07 17:49] VITALS: BP 140/90; PULSE 108; RESP 16; TEMP 98.1; O2SAT 97
--- NOTE | 2017-03-07 18:23 | PD ---
HPI Chief Complaint: Alcohol/Drug Intoxication Time Seen by Provider: 18:21 Travel History International Travel<30 days: No Contact w/Intl Traveler<30days: No Traveled to known affect area: No History of Present Illness HPI Patient is a 46-year-old male presents emergency department for evaluation of alcohol intoxication. Patient states she's been drinking tonight and states he needs to go to [facility]. He cannot elaborate why but says suicidal once or twice. Patient states his been to multiple other hospitals and nobody will send him over to [facility]. Patient when I speak to him more directly denies any plan for suicide. He denies any physical complaints denies any chest pain shortness of breath abdominal pain nausea vomiting diarrhea. [facility] Past Medical History Anxiety: Yes Depression: Yes Cardiovascular Problems: Yes (PALPITATIONS ) COPD: Yes Diminished Hearing: No Respiratory: Yes (COPD) Seizures: Yes (ETOH WITHDRAWL ) Social History Alcohol Use: Yes (1 1/2 pt. vodka per day) Tobacco Use: No Substance Use: No (Denies) Allergies-Medications (Allergen,Severity, Reaction): Coded Allergies: Paxil (Verified Adverse Reaction, Intermediate, Confusion, 03/06/17) Reported Meds & Prescriptions Reported Meds & Active Scripts Active No Active Prescriptions or Reported Medications Review of Systems Except as stated in HPI: all other systems reviewed are Neg Physical Exam Narrative GENERAL: Well-developed well-nourished, somewhat somnolent smell of alcohol.] SKIN: No visible signs of trauma externally. HEAD: Atraumatic. Normocephalic. EYES: Pupils equal and round. No scleral icterus. No injection or drainage. ENT: No nasal bleeding or discharge. Mucous membranes pink and moist. NECK: Trachea midline. No JVD. CARDIOVASCULAR: Regular rate and rhythm. No murmur appreciated. RESPIRATORY: No accessory muscle use. Clear to auscultation. Breath sounds equal bilaterally. GASTROINTESTINAL: Abdomen soft, non-tender, nondistended. Hepatic and splenic margins not palpable. MUSCULOSKELETAL: No obvious deformities. No clubbing. No cyanosis. No edema. NEUROLOGICAL: Awake and alert. No obvious cranial nerve deficits. Motor grossly within normal limits. Normal speech. PSYCHIATRIC: Appropriate mood and affect; endorses suicidal ideation without planning. Data Data Last Documented VS Vital Signs Date Time Temp Pulse Resp B/P Pulse Ox O2 Delivery O2 Flow Rate FiO2 03/07/17 17:49 98.1 108 16 140/90 97 MDM Medical Decision Making Medical Screen Exam Complete: Yes Emergency Medical Condition: Yes Differential Diagnosis Alcohol intoxication, poor social circumstance, suicidal ideation without planning. Narrative Course Patient 46-year-old male presents emergency department alcohol intoxication, is very very vague suicidal ideation and multiple other hospitals asking for transfer up to [facility], I recommended that he sleep it off in the emergency department but under my clinical history and examination at this time he does not meet criteria for Palencia act. Patient was counseled on such and I informed her that we would try to find him transportation to [facility] although it may be difficult. He'll be allowed to sleep it off in the emergency department until such time as he is clinically sober for discharge. Diagnosis Primary Impression: Alcohol intoxication Scripts No Active Prescriptions or Reported Meds Disposition: 01 DISCHARGE HOME Condition: Stable Cornell Dillard MD Mar 07, 2017 18:22
== END 2017-03-07 20:00 | disposition left against medical advice (07) ==
LOC: NEDAMB 16:56
DX: F10.129 Alcohol abuse with intoxication, unspecified (principal); F41.9 Anxiety disorder, unspecified; F32.9 Major depressive disorder, single episode, unspecified; J44.9 Chronic obstructive pulmonary disease, unspecified
CPT/HCPCS: 99281

== ENCOUNTER 2017-03-07 23:43 | Emergency (ER) | payer SELFPAY ==
[~2017-03-07] VITALS: Ht 170.2 cm; Wt 63.6 kg
[2017-03-07 23:44] VITALS: BP 133/74; PULSE 101; RESP 16; TEMP 98.9; O2SAT 95
--- NOTE | 2017-03-08 02:32 | PD ---
HPI Chief Complaint: Alcohol/Drug Intoxication Time Seen by Provider: 02:28 Travel History International Travel<30 days: No Contact w/Intl Traveler<30days: No Traveled to known affect area: No History of Present Illness HPI 46-year-old white male known to the medical staff for multiple repeat visits this week due to alcohol. The patient states that he would like to get into detox. He is concerned that he might be going through withdrawal. This is a patient who had recently moved to the area from [place]. No suicidal homicidal ideation. PFSH Past Medical History Anxiety: Yes Depression: Yes Cardiovascular Problems: Yes (PALPITATIONS ) COPD: Yes Diminished Hearing: No Respiratory: Yes (COPD) Seizures: Yes (ETOH WITHDRAWL ) Social History Alcohol Use: Yes (1 1/2 pt. vodka per day) Tobacco Use: Yes Substance Use: No (Denies) Allergies-Medications (Allergen,Severity, Reaction): Coded Allergies: Paxil (Verified Adverse Reaction, Intermediate, Confusion, 03/08/17) Reported Meds & Prescriptions Reported Meds & Active Scripts Active No Active Prescriptions or Reported Medications Review of Systems ROS Limitations: Intoxication Except as stated in HPI: all other systems reviewed are Neg Physical Exam Narrative GENERAL: Well-nourished, well-developed patient. Smells of EtOH. Patient does not appear to be in withdrawals. There is no tremulousness. His vital signs are stable. SKIN: Warm and dry. HEAD: Normocephalic and atraumatic. EYES: No scleral icterus. No injection or drainage. ENT: No nasal drainage noted. Mucous membranes pink. Airway patent. NECK: Supple, trachea midline. Moves head freely without obvious discomfort. CARDIOVASCULAR: Regular rate and rhythm without murmurs, gallops, or rubs. RESPIRATORY: Breath sounds equal bilaterally. No accessory muscle use. GASTROINTESTINAL: Abdomen soft, non-tender, nondistended. EXTREMITIES: No cyanosis or edema. BACK: Nontender without obvious deformity. No CVA tenderness. NEURO: Patient is alert and oriented. no sensorimotor deficits. Nonfocal. Normal speech. PSYCH: No delusions. No auditory or visual hallucinations. Data Data Last Documented VS Vital Signs Date Time Temp Pulse Resp B/P Pulse Ox O2 Delivery O2 Flow Rate FiO2 03/08/17 02:09 16 95 Room Air 03/07/17 23:44 98.9 101 133/74 MDM Medical Decision Making Medical Screen Exam Complete: Yes Emergency Medical Condition: Yes Medical Record Reviewed: Yes Differential Diagnosis Differential diagnoses: Alcohol intoxication, substance abuse, electrolyte abnormality, malingering Narrative Course This is a 46-year-old white male alcoholic who recently moved to the area from [place]. He has had multiple ER visits due to his alcohol abuse. There are no detox beds at [facility] currently. The patient has been advised to follow-up with [facility] for further alcohol treatment. The patient does not exhibit symptoms of withdrawal. This is alcohol abuse Diagnosis Primary Impression: Alcohol abuse Patient Instructions: General Instructions Additional Instructions: Rest. Increase fluids. Avoid alcohol. Avoid illegal substances. Follow-up with [facility] for detox. Do not operate a car or any heavy machinery under the influence of alcohol or drugs. Follow-up with a medical doctor this week. Return to the ER for emergencies Med/Other Pt SpecificInfo: No Meds Exist/No RX given Scripts No Active Prescriptions or Reported Meds Disposition: 01 DISCHARGE HOME Condition: Stable Tramaine Sagastume Mar 08, 2017 02:32
== END 2017-03-08 06:36 | disposition home or self-care (01) ==
LOC: NEPD 23:43
DX: F10.129 Alcohol abuse with intoxication, unspecified (principal); F41.9 Anxiety disorder, unspecified; J44.9 Chronic obstructive pulmonary disease, unspecified; Z72.0 Tobacco use
CPT/HCPCS: 99281

== ENCOUNTER 2017-03-08 15:25 | Emergency (ER) | payer SELFPAY ==
[~2017-03-08] VITALS: Ht 172.7 cm; Wt 70.5 kg
[2017-03-08 15:36] VITALS: BP 140/98; PULSE 108; RESP 18; TEMP 98.6; O2SAT 97
--- NOTE | 2017-03-08 15:58 | PD ---
Physical Exam Narrative 46 y/o male alcoholic presents via ems due to feelings of withdrawal. He drank 4-loco today. Vital signs reviewed. Seen at triage desk. Awaiting bed placement. Data Data Last Documented VS Vital Signs Date Time Temp Pulse Resp B/P Pulse Ox O2 Delivery O2 Flow Rate FiO2 03/08/17 15:36 98.6 108 18 140/98 97 Room Air MDM Medical Record Reviewed: Yes Supervised Visit with JULIO: No Scripts No Active Prescriptions or Reported Meds Hunter Glez Mar 08, 2017 15:58
--- NOTE | 2017-03-08 17:39 | PD ---
HPI Chief Complaint: Medical Clearance Time Seen by Provider: 17:33 Travel History International Travel<30 days: No Contact w/Intl Traveler<30days: No Traveled to known affect area: No History of Present Illness HPI 46-year-old male brought in by ambulance from [facility] for medical clearance. According to triage note, there are no beds currently at [facility]. Patient reports striking alcohol daily, however he states his last drink was this morning, and he feels as though he may be going through withdrawals. He is complaining of feeling shakes. Patient also endorses feeling suicidal. Patient also endorses chest pain that has been going on for several days and states it feels as though there is a brick on his chest. He denies history of CAD. No other physical complaints. He is requesting something to eat. PFSH Past Medical History Anxiety: Yes Depression: Yes Cardiovascular Problems: Yes (PALPITATIONS ) COPD: Yes Diminished Hearing: No Respiratory: Yes (COPD) Seizures: Yes (ETOH WITHDRAWL ) Tetanus Vaccination: > 5 Years Influenza Vaccination: No Family History Family Myocardial Infarction: Yes (maternal grandmother) Social History Alcohol Use: Yes ("a fifth a day or more") Tobacco Use: Yes (2 ppd) Substance Use: No (Denies) Allergies-Medications (Allergen,Severity, Reaction): Coded Allergies: Paxil (Verified Adverse Reaction, Intermediate, Confusion, 03/08/17) Reported Meds & Prescriptions Reported Meds & Active Scripts Active No Active Prescriptions or Reported Medications Review of Systems Except as stated in HPI: all other systems reviewed are Neg Physical Exam Narrative GENERAL: Well-developed, well-nourished, comfortable, no apparent distress, no tremors. SKIN: Focused skin assessment warm/dry. HEAD: Atraumatic. Normocephalic. EYES: Pupils equal and round. No scleral icterus. No injection or drainage. ENT: Mucous membranes pink and dry. NECK: Trachea midline. No JVD. CARDIOVASCULAR: Regular rate and rhythm. RESPIRATORY: No accessory muscle use. Clear to auscultation. Breath sounds equal bilaterally. GASTROINTESTINAL: Abdomen soft, non-tender, nondistended. MUSCULOSKELETAL: No obvious deformities. No clubbing. No cyanosis. No edema. NEUROLOGICAL: Awake and alert. No obvious cranial nerve deficits. Motor grossly within normal limits. Normal speech. PSYCHIATRIC: Appropriate mood and affect; insight and judgment normal. Data Data Last Documented VS Vital Signs Date Time Temp Pulse Resp B/P Pulse Ox O2 Delivery O2 Flow Rate FiO2 03/08/17 19:14 82 16 116/70 96 Room Air 03/08/17 15:36 98.6 Orders Complete Blood Count With Diff (03/08/17 17:36) Comprehensive Metabolic Panel (03/08/17 17:36) Electrocardiogram (03/08/17 17:36) Psych Screen (03/08/17 17:36) Drug Screen, Random Urine (03/08/17 17:36) Alcohol (Ethanol) (03/08/17 17:36) Salicylates (Aspirin) (03/08/17 17:36) Tylenol (Acetaminophen) (03/08/17 17:36) Lorazepam Inj (Ativan Inj) (03/08/17 17:45) Ckmb (Isoenzyme) Profile (03/08/17 17:36) Troponin I (03/08/17 17:36) Sodium Chlor 0.9% 1000 Ml Inj (Ns 1000 M (03/08/17 17:45) CKMB (03/08/17 18:15) CKMB% (03/08/17 18:15) Labs Laboratory Tests Test 03/08/17 18:15 White Blood Count 19.0 TH/MM3 Red Blood Count 5.47 MIL/MM3 Hemoglobin 16.7 GM/DL Hematocrit 49.9 % Mean Corpuscular Volume 91.3 FL Mean Corpuscular Hemoglobin 30.5 PG Mean Corpuscular Hemoglobin 33.4 % Concent Red Cell Distribution Width 13.9 % Platelet Count 230 TH/MM3 Mean Platelet Volume 8.2 FL Neutrophils (%) (Auto) 69.6 % Lymphocytes (%) (Auto) 24.6 % Monocytes (%) (Auto) 4.5 % Eosinophils (%) (Auto) 0.8 % Basophils (%) (Auto) 0.5 % Neutrophils # (Auto) 13.2 TH/MM3 Lymphocytes # (Auto) 4.7 TH/MM3 Monocytes # (Auto) 0.9 TH/MM3 Eosinophils # (Auto) 0.1 TH/MM3 Basophils # (Auto) 0.1 TH/MM3 CBC Comment DIFF FINAL Differential Comment Sodium Level 140 MEQ/L Potassium Level 4.4 MEQ/L Chloride Level 105 MEQ/L Carbon Dioxide Level 25.8 MEQ/L Anion Gap 9 MEQ/L Blood Urea Nitrogen 10 MG/DL Creatinine 0.88 MG/DL Estimat Glomerular Filtration 93 ML/MIN Rate Random Glucose 93 MG/DL Calcium Level 8.5 MG/DL Total Bilirubin 1.1 MG/DL Aspartate Amino Transf 37 U/L (AST/SGOT) Alanine Aminotransferase 42 U/L (ALT/SGPT) Alkaline Phosphatase 71 U/L Total Creatine Kinase 159 U/L Creatine Kinase MB 1.4 NG/ML Troponin I LESS THAN 0.02 NG/ML Total Protein 7.0 GM/DL Albumin 3.8 GM/DL Salicylates Level 2.0 MG/DL Acetaminophen Level LESS THAN 2.0 MCG/ML Ethyl Alcohol Level 213 MG/DL [facility] Medical Decision Making Medical Screen Exam Complete: Yes Emergency Medical Condition: Yes Medical Record Reviewed: Yes Interpretation(s) EKG: Sinus, rate 90, normal axis, short ID interval, no acute ischemic abnormality. Differential Diagnosis Alcohol intoxication, alcohol withdrawal unlikely, suicidal ideation, malingering Narrative Course Vital signs reviewed. CBC shows WBC 19 which is nonspecific. He is afebrile and has no obvious source for infection. CMP is unremarkable. Cardiac enzymes are negative. Alcohol level is 213. Tylenol and salicylate levels are negative. On reassessment the patient is sleeping comfortably. He is easily arousable. He is not displaying any signs or symptoms of alcohol which were all. He still claiming to have suicidal thoughts. He is medically cleared for psychiatric evaluation and disposition by them. Diagnosis Primary Impression: Alcohol intoxication Qualified Code: F10.920 - Alcohol intoxication, uncomplicated Additional Impression: Suicidal ideations Scripts No Active Prescriptions or Reported Meds Maurice Brambila MD Mar 08, 2017 17:39
[2017-03-08] MEDS ORDERED: SODIUM CHLOR 0.9% 1000 ML INJ 1,000 ML IV ONE (17:45)
[2017-03-08] MEDS ORDERED: LORazepam 2 MG/ML VIAL IV PUSH ONE (17:45)
[2017-03-08 18:34] LABS: AUTOMATED NEUTROPHIL # 13.2 TH/MM3 (1.8-7.7); BASOPHIL # 0.1 TH/MM3 (0-0.2); BASOPHIL % 0.5 % (0.0-2.0); EOSINOPHIL # 0.1 TH/MM3 (0-0.4); EOSINOPHIL % 0.8 % (0.0-4.0); HEMATOCRIT 49.9 % (39.0-51.0); HEMO FLAGS DIFF FINAL; LYMPH % 24.6 % (9.0-44.0); LYMPHOCYTE # 4.7 TH/MM3 (1.0-4.8); MEAN CELL VOLUME 91.3 FL (80.0-100.0); MEAN CORPUSCULAR HEMOGLOBIN 30.5 PG (27.0-34.0); MEAN CORPUSCULAR HGB CONC 33.4 % (32.0-36.0); MONO % 4.5 % (0.0-8.0); NEUT % 69.6 % (16.0-70.0); PLATELET COUNT 230 TH/MM3 (150-450); RED BLOOD COUNT 5.47 MIL/MM3 (4.50-5.90); RED CELL DISTRIBUTION WIDTH 13.9 % (11.6-17.2)
[2017-03-08 18:50] LABS: ANION GAP 9 MEQ/L (5-15); AST (GOT) 37 U/L (15-37); BICARBONATE 25.8 MEQ/L (21.0-32.0); BLOOD UREA NITROGEN 10 MG/DL (7-18); CHLORIDE 105 MEQ/L (98-107); GLOMERULAR FILTRATION RATE 93 ML/MIN (>89); SODIUM (NA) 140 MEQ/L (136-145)
[2017-03-08 18:53] LABS: POTASSIUM 4.4 MEQ/L (3.5-5.1)
[2017-03-08 19:04] LABS: ACETAMINOPHEN LESS THAN 2.0 MCG/ML (10.0-30.0); ALKALINE PHOSPHATASE 71 U/L (45-117); ALT (GPT) 42 U/L (12-78); CREATINE KINASE 159 U/L (39-308); TOTAL BILIRUBIN ADULT 1.1 MG/DL (0.2-1.0)
[2017-03-08 19:14] VITALS: BP 116/70; PULSE 82; RESP 16; O2SAT 96
[2017-03-08 19:17] LABS: CKMB 1.4 NG/ML (0.5-3.6)
[2017-03-08 19:29] LABS: AMPHETAMINE, URINE NEG (NEG); BARBITURATES, URINE NEG (NEG); COCAINE, URINE NEG (NEG)
[2017-03-08 20:38] VITALS: BP 172/86; PULSE 100; RESP 18; O2SAT 98
[2017-03-08 22:10] VITALS: BP 133/77; PULSE 84; RESP 18; O2SAT 96
[2017-03-09 02:20] VITALS: BP 147/84; PULSE 81; RESP 19; O2SAT 96
[2017-03-09] MEDS ORDERED: LORazepam 2 MG/ML VIAL IM ONE (05:45)
[2017-03-09 05:53] VITALS: BP 158/87; PULSE 66; RESP 18; O2SAT 98
--- NOTE | 2017-03-09 09:10 | PD ---
History of Present Illness Chief Complaint: Medical Clearance Time Seen by Provider: 09:05 Travel History International Travel<30 Days: No Contact w/Intl Traveler<30days: No Known affected area: No Legal Status Legal Status: Voluntary History of Present Illness: History of Present Illness HPI 46-year-old male brought in by ambulance from [facility] for medical clearance. According to triage note, there are no beds currently at [facility]. Patient reports striking alcohol daily, however he states his last drink was this morning, and he feels as though he may be going through withdrawals. He is complaining of feeling shakes. Patient also endorses feeling suicidal. Patient also endorses chest pain that has been going on for several days and states it feels as though there is a brick on his chest. He denies history of CAD. No other physical complaints. He is requesting something to eat. Patient seen. EMR reviewed. Patietn resting comfortably in J pod. Clinically sober. No sign of withdrawal. PFSH Past Medical History Anxiety: Yes Depression: Yes Cardiovascular Problems: Yes (PALPITATIONS ) COPD: Yes Diminished Hearing: No Respiratory: Yes (COPD) Seizures: Yes (ETOH WITHDRAWL ) Tetanus Vaccination: > 5 Years Influenza Vaccination: No Psychiatric History Psychiatric History Hx Psychiatric Treatment: REPORTED HX OF ANXIETY, PTSD AND DEPRESSION, CHRONIC ALCOHOL ABUSE. NONCOMPLIANT WITH MEDICATIONS AND TREATMENTS History of Inpatient Treatment: No Social History Hx Alcohol Use: Yes ("a fifth a day or more") Hx Tobacco Use: Yes (2 ppd) Hx Substance Use: Yes (CHRONIC ALCOHOL ABUSE) Substance Use Type: Alcohol Hx of Substance Use Treatment: Yes Allergies-Medications (Allergen,Severity, Reaction): Coded Allergies: Paxil (Verified Adverse Reaction, Intermediate, Confusion, 03/08/17) Reported Meds & Prescriptions Reported Meds & Active Scripts Active No Active Prescriptions or Reported Medications Exam Alert: Yes [place]: Person Mood: Calm Speech: Clear, Logical MDM Medical Decision Making Medical Record Reviewed: Yes Assessment/Plan Discharge to Follow up. Orders Complete Blood Count With Diff (03/08/17 17:36) Comprehensive Metabolic Panel (03/08/17 17:36) Electrocardiogram (03/08/17 17:36) Psych Screen (03/08/17 17:36) Drug Screen, Random Urine (03/08/17 17:36) Alcohol (Ethanol) (03/08/17 17:36) Salicylates (Aspirin) (03/08/17 17:36) Tylenol (Acetaminophen) (03/08/17 17:36) Lorazepam Inj (Ativan Inj) (03/08/17 17:45) Ckmb (Isoenzyme) Profile (03/08/17 17:36) Troponin I (03/08/17 17:36) Sodium Chlor 0.9% 1000 Ml Inj (Ns 1000 M (03/08/17 17:45) CKMB (03/08/17 18:15) CKMB% (03/08/17 18:15) Diet Regular Basic (03/09/17 Breakfast) Lorazepam Inj (Ativan Inj) (03/09/17 05:45) Results Vital Signs Date Time Temp Pulse Resp B/P Pulse Ox O2 Delivery O2 Flow Rate FiO2 03/09/17 05:53 66 18 158/87 98 Room Air 03/09/17 02:20 81 19 147/84 96 Room Air 03/08/17 22:10 84 18 133/77 96 Room Air 03/08/17 20:38 100 18 172/86 98 Room Air 03/08/17 19:14 82 16 116/70 96 Room Air 03/08/17 15:36 98.6 108 18 140/98 97 Room Air Laboratory Tests Test 03/08/17 03/08/17 18:15 18:30 White Blood Count 19.0 Red Blood Count 5.47 Hemoglobin 16.7 Hematocrit 49.9 Mean Corpuscular Volume 91.3 Mean Corpuscular Hemoglobin 30.5 Mean Corpuscular Hemoglobin 33.4 Concent Red Cell Distribution Width 13.9 Platelet Count 230 Mean Platelet Volume 8.2 Neutrophils (%) (Auto) 69.6 Lymphocytes (%) (Auto) 24.6 Monocytes (%) (Auto) 4.5 Eosinophils (%) (Auto) 0.8 Basophils (%) (Auto) 0.5 Neutrophils # (Auto) 13.2 Lymphocytes # (Auto) 4.7 Monocytes # (Auto) 0.9 Eosinophils # (Auto) 0.1 Basophils # (Auto) 0.1 CBC Comment DIFF FINAL Differential Comment Sodium Level 140 Potassium Level 4.4 Chloride Level 105 Carbon Dioxide Level 25.8 Anion Gap 9 Blood Urea Nitrogen 10 Creatinine 0.88 Estimat Glomerular Filtration 93 Rate Random Glucose 93 Calcium Level 8.5 Total Bilirubin 1.1 Aspartate Amino Transf 37 (AST/SGOT) Alanine Aminotransferase 42 (ALT/SGPT) Alkaline Phosphatase 71 Total Creatine Kinase 159 Creatine Kinase MB 1.4 Troponin I LESS THAN 0.02 Total Protein 7.0 Albumin 3.8 Salicylates Level 2.0 Acetaminophen Level LESS THAN 2.0 Ethyl Alcohol Level 213 Urine Opiates Screen NEG Urine Barbiturates Screen NEG Urine Amphetamines Screen NEG Urine Benzodiazepines Screen NEG Urine Cocaine Screen NEG Urine Cannabinoids Screen NEG Diagnosis Primary Impression: Alcohol intoxication Additional Impression: Suicidal ideations Psychiatrically Cleared: Yes Departure Forms: Tests/Procedures Patient Instructions: General Instructions, Alcohol Use Disorder (ED) Prescriptions No Active Prescriptions or Reported Meds Disposition: 01 DISCHARGE HOME Problem Qualifiers Primary Impression: Alcohol intoxication Qualified Code: F10.920 - Alcohol intoxication, uncomplicated Lakeshia Kirk [facility] Mar 09, 2017 09:10
--- NOTE | 2017-03-10 11:03 | EKG ---
Date Performed: 03/08/2017 Time Performed: 18:29:29 PTAGE: 46 years EKG: Sinus rhythm WITH SHORT OR INTERVAL BORDERLINE ECG PREVIOUS TRACING : 10/14/2016 21.50 DOCTOR: Jaron Doss Interpretating Date/Time 03/10/2017 10:56:38
== END 2017-03-09 10:44 | disposition home or self-care (01) ==
LOC: NEPD 15:25 → NEPJ 03-09 10:44
DX: F10.129 Alcohol abuse with intoxication, unspecified (principal); R45.851 Suicidal ideations; F41.9 Anxiety disorder, unspecified; F32.9 Major depressive disorder, single episode, unspecified; J44.9 Chronic obstructive pulmonary disease, unspecified; R94.31 Abnormal electrocardiogram [ECG] [EKG]; F17.200 Nicotine dependence, unspecified, uncomplicated
CPT/HCPCS: 80053; 80307; 82550; 82552; 84484; 85025; 93005; 96361; 96372; 96374; 99284; J2060; J7030

== ENCOUNTER 2017-03-09 13:37 | Emergency (ER) | payer SELFPAY ==
[~2017-03-09] VITALS: Ht 172.7 cm; Wt 68.2 kg
[2017-03-09 13:39] VITALS: BP 128/84; PULSE 115; RESP 17; TEMP 98.4; O2SAT 95
--- NOTE | 2017-03-09 14:34 | PD ---
HPI Chief Complaint: Medical Clearance Time Seen by Provider: 14:27 Travel History International Travel<30 days: No Contact w/Intl Traveler<30days: No Traveled to known affect area: No History of Present Illness HPI Patient is a 46-year-old male presenting to the emergency department for rehabilitation and detox. Patient states he has a history of alcoholism and [facility] keep sending him here. He denies any new complaints today. He states that he was feeling shaky and sweaty, he drank 3 4 LOCOS this morning. He states this is the normal amount of alcohol he drinks daily. Patient was observed sleeping soundly in bed. [facility] Past Medical History Anxiety: Yes Depression: Yes Cardiovascular Problems: Yes (PALPITATIONS ) COPD: Yes Diminished Hearing: No Respiratory: Yes (COPD) Seizures: Yes (ETOH WITHDRAWL ) Social History Alcohol Use: Yes ("a fifth a day or more") Tobacco Use: Yes (2 ppd) Substance Use: Yes (CHRONIC ALCOHOL ABUSE) Allergies-Medications (Allergen,Severity, Reaction): Coded Allergies: Paxil (Verified Adverse Reaction, Intermediate, Confusion, 03/09/17) Reported Meds & Prescriptions Reported Meds & Active Scripts Active No Active Prescriptions or Reported Medications Review of Systems Except as stated in HPI: all other systems reviewed are Neg HENT: No: Headaches, Lightheadedness Cardiovascular: No: Chest Pain or Discomfort Respiratory: No: Shortness of Breath Gastrointestinal: No: Nausea, Abdominal Pain Neurologic: No: Dizziness Psychiatric: Positive: Substance Abuse Physical Exam Narrative GENERAL: Well-developed, well-nourished, alert male. SKIN: Warm and dry. HEAD: Atraumatic. Normocephalic. EYES: Pupils equal and round. No scleral icterus. No injection or drainage. ENT: No nasal bleeding or discharge. Mucous membranes pink and moist. NECK: Trachea midline. No JVD. CARDIOVASCULAR: Regular rate and rhythm. RESPIRATORY: No accessory muscle use. Clear to auscultation. Breath sounds equal bilaterally. GASTROINTESTINAL: Abdomen soft, non-tender, nondistended. Hepatic and splenic margins not palpable. MUSCULOSKELETAL: Extremities without clubbing, cyanosis, or edema. No obvious deformities. Gait observed, steady without any difficulty. NEUROLOGICAL: Awake and alert, oriented 3. No obvious cranial nerve deficits. Motor grossly within normal limits. Five out of 5 muscle strength in the arms and legs. Normal speech. PSYCHIATRIC: Appropriate mood and affect; insight and judgment normal. Data Data Last Documented VS Vital Signs Date Time Temp Pulse Resp B/P Pulse Ox O2 Delivery O2 Flow Rate FiO2 03/09/17 13:39 98.4 115 17 128/84 95 Room Air Orders Electrocardiogram (03/09/17 ) [facility] Medical Decision Making Medical Screen Exam Complete: Yes Emergency Medical Condition: Yes Medical Record Reviewed: Yes Interpretation(s) Vital Signs Date Time Temp Pulse Resp B/P Pulse Ox O2 Delivery O2 Flow Rate FiO2 03/09/17 13:39 98.4 115 17 128/84 95 Room Air Differential Diagnosis Mood disorder versus substance abuse versus malingering versus other Narrative Course Patient's a 46-year-old male presented to the emergency department for rehabilitation. Patient is a history of chronic alcoholism. He ingested the normal amount of alcohol he drinks daily today. He was observed sleeping soundly, initial vital signs showed tachycardia with a heart rate of 1:15, EKG performed in the emergency department shows sinus rhythm with a heart rate of 93. Patient was questioned regarding his chest pain, he states the pain is ongoing for several years. He states the pain is not new today. Patient was advised that we do not do alcohol or drug rehabilitation in emergency department and that he would have to go to [facility] on a daily basis to see if there was a bed available. Patient became agitated and got out of the bed and started to get dressed. He was once again asked about his chest pain, denying that he had any complaints of chest pain now. He was ambulating safely. She was encouraged to return to emergency department for any new or worsening symptoms. Patient is stable for discharge Diagnosis Primary Impression: Alcohol dependence Qualified Code: F10.20 - Uncomplicated alcohol dependence Referrals: [facility] (Out patient) [facility] Patient Instructions: General Instructions Additional Instructions: Present to [facility] on a daily basis to see if there is a bed available Avoid excessive intake of alcohol Return to emergency department for any new or worsening symptoms Med/Other Pt SpecificInfo: No Change to Meds Scripts No Active Prescriptions or Reported Meds Disposition: 01 DISCHARGE HOME Condition: Stable Olivia Mccarty Mar 09, 2017 14:34
--- NOTE | 2017-03-09 14:59 | PD ---
History of Present Illness Chief Complaint: Medical Clearance Time Seen by Provider: 09:05 Travel History International Travel<30 Days: No Contact w/Intl Traveler<30days: No Known affected area: No Legal Status Legal Status: Voluntary History of Present Illness: History of Present Illness HPI Patient is a 46-year-old male with history of alcohol abuse presenting to the emergency department seeking rehabilitation and detox. Patient states he was sent here from [facility] . He denies any new complaints today. He states that he was feeling shaky and sweaty, he drank 3 4 LOCOS this morning. He states this is the normal amount of alcohol he drinks daily. Kathya was monitored in J pod and presented no behavioral concerns and no suicidality. This morning he is clinically sober with clear speech and no signs of withdrawal. he does not verbalize any suicidal or homicdla ideation and he does not appear to be intrnally stimulated. he once again tells me that [facility] sent him here and that he is looking for detox services. 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 History of Inpatient Treatment: No Guns or firearms in home: No Social History Single , homeless Hx Alcohol Use: Yes Hx Tobacco Use: Yes Hx Substance Use: No Substance Use Type: Alcohol Hx of Substance Use Treatment: Yes Family Psychiatric History negative Allergies-Medications (Allergen,Severity, Reaction): Coded Allergies: Paxil (Verified Adverse Reaction, Intermediate, Confusion, 03/09/17) Reported Meds & Prescriptions Reported Meds & Active Scripts Active No Active Prescriptions or Reported Medications Review of Systems Except as stated in HPI: all other systems reviewed are Neg Exam Alert: Yes [place]: Person (ox4) Mood: Calm Affect: Appropriate Speech: Clear, Logical Eye Contact: Normal Memory Intact: Comment (no gross abnormality) Hallucinations: Other (negative) Delusions: No Suicidal: Ideation (negative) Homicidal: Ideation (negative) Insight/Judgement Poor. Poor MDM Medical Decision Making Medical Record Reviewed: Yes Assessment/Plan 46 year old male with history of alcohol abuse who is under a voluntary basis. he states that he was at [facility] seeking detox services and was sent here. At this time patient remains under a voluntary status and does nto meet any criteria or present any psychiatric symptomatology. he is referred to [facility] for substance abuse treatment. Orders Electrocardiogram (03/09/17 ) Results Vital Signs Date Time Temp Pulse Resp B/P Pulse Ox O2 Delivery O2 Flow Rate FiO2 03/09/17 13:39 98.4 115 17 128/84 95 Room Air Diagnosis Primary Impression: Alcohol dependence Psychiatrically Cleared: Yes Referrals: [facility] (Out patient) [facility] Departure Forms: Tests/Procedures Patient Instructions: General Instructions, Alcohol Dependence (ED) Additional Instructions: Present to [facility] on a daily basis to see if there is a bed available Avoid excessive intake of alcohol Return to emergency department for any new or worsening symptoms Med/ Other Pt Specific Info: No Meds Exist/No RX given Prescriptions No Active Prescriptions or Reported Meds Disposition: 01 DISCHARGE HOME Condition: Stable Problem Qualifiers Primary Impression: Alcohol dependence Qualified Code: F10.20 - Uncomplicated alcohol dependence Lakeshia Kirk Mar 09, 2017 14:59
--- NOTE | 2017-03-10 12:42 | EKG ---
Date Performed: 03/09/2017 Time Performed: 14:05:41 PTAGE: 46 years EKG: Sinus rhythm WITH SHORT WA INTERVAL Compared to prior tracing no significant change BORDERLINE ECG PREVIOUS TRACING : 03/08/2017 18.29 DOCTOR: Lj Haywood Interpretating Date/Time 03/10/2017 12:39:26
== END 2017-03-09 14:36 | disposition home or self-care (01) ==
LOC: NEPD 13:37
DX: F10.20 Alcohol dependence, uncomplicated (principal); R00.0 Tachycardia, unspecified; F17.210 Nicotine dependence, cigarettes, uncomplicated
CPT/HCPCS: 93005

== ENCOUNTER 2017-03-10 19:00 | Emergency (ER) | payer OTHER ==
[2017-03-10 19:12] VITALS: BP 142/86; PULSE 114; RESP 20; TEMP 98.9; O2SAT 100
[2017-03-10] MEDS ORDERED: LORazepam 1 MG TAB PO ONE (20:15)
[2017-03-10 20:19] LABS: AUTOMATED NEUTROPHIL # 9.2 TH/MM3 (1.8-7.7); BASOPHIL # 0.1 TH/MM3 (0-0.2); BASOPHIL % 0.9 % (0.0-2.0); EOSINOPHIL # 0.2 TH/MM3 (0-0.4); EOSINOPHIL % 1.2 % (0.0-4.0); HEMATOCRIT 50.3 % (39.0-51.0); HEMO FLAGS DIFF FINAL; LYMPHOCYTE # 3.6 TH/MM3 (1.0-4.8); MEAN CORPUSCULAR HEMOGLOBIN 30.9 PG (27.0-34.0); MEAN CORPUSCULAR HGB CONC 33.9 % (32.0-36.0); MONO % 5.4 % (0.0-8.0); NEUT % 66.5 % (16.0-70.0); PLATELET COUNT 225 TH/MM3 (150-450); RED BLOOD COUNT 5.53 MIL/MM3 (4.50-5.90); RED CELL DISTRIBUTION WIDTH 13.3 % (11.6-17.2); WHITE BLOOD COUNT 13.8 TH/MM3 (4.0-11.0)
[2017-03-10 20:24] LABS: AMPHETAMINE, URINE NEG (NEG); BARBITURATES, URINE NEG (NEG); COCAINE, URINE NEG (NEG)
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
[2017-03-10] MEDS ORDERED: LORazepam 2 MG TAB PO PRN (20:30)
[2017-03-10] MEDS ORDERED: FLUMAZENIL 0.5 MG/5 ML VIAL IV PUSH PRN (20:30)
[2017-03-10] MEDS ORDERED: LORazepam 2 MG/ML VIAL IV PUSH PRN (20:30)
[2017-03-10] MEDS ORDERED: LORazepam 1 MG TAB PO PRN (20:30)
[2017-03-10] MEDS ORDERED: ONDANSETRON ODT 4 MG TAB PO PRN (20:30)
[2017-03-10] MEDS ORDERED: ACETAMINOPHEN 325 MG TAB PO PRN (20:30)
[2017-03-10 20:37] LABS: ALT (GPT) 50 U/L (12-78)
[2017-03-10 20:39] LABS: ALKALINE PHOSPHATASE 77 U/L (45-117); TOTAL BILIRUBIN ADULT 1.2 MG/DL (0.2-1.0)
[2017-03-10 20:46] LABS: ANION GAP 8 MEQ/L (5-15); AST (GOT) 36 U/L (15-37); BICARBONATE 25.5 MEQ/L (21.0-32.0); BLOOD UREA NITROGEN 7 MG/DL (7-18); CHLORIDE 106 MEQ/L (98-107); GLOMERULAR FILTRATION RATE 110 ML/MIN (>89); POTASSIUM 3.7 MEQ/L (3.5-5.1); SODIUM (NA) 139 MEQ/L (136-145)
[2017-03-10 22:00] VITALS: BP 118/87; PULSE 104; RESP 18; TEMP 97.8; O2SAT 96
[2017-03-11 02:38] VITALS: BP 129/85; PULSE 87; RESP 18; O2SAT 96
== END 2017-03-11 04:40 ==
LOC: NEDAMB 19:00 → NEPJ 03-11 04:40
DX: F10.14 Alcohol abuse with alcohol-induced mood disorder (principal); Y90.7 Blood alcohol level of 200-239 mg/100 ml
CPT/HCPCS: 80053; 80307; 85025; 99284

== ENCOUNTER 2017-04-15 18:34 | Emergency (ER) | payer SELFPAY ==
[~2017-04-15] VITALS: Ht 172.7 cm; Wt 70.0 kg
[2017-04-15 18:35] VITALS: BP 130/80; PULSE 115; RESP 17; TEMP 98.4; O2SAT 99
== END 2017-04-15 21:00 | disposition left against medical advice (07) ==
LOC: NED 18:34
DX: F43.20 Adjustment disorder, unspecified (principal); Z53.21 Procedure and treatment not carried out due to patient leaving prior to being seen by health care provider
CPT/HCPCS: 99281

== ENCOUNTER 2017-04-16 12:57 | Emergency (ER) | payer SELFPAY ==
[~2017-04-16] VITALS: Ht 172.7 cm; Wt 74.0 kg
--- NOTE | 2017-04-16 13:27 | PD ---
Physical Exam Exam Limitations: Intoxication Date Seen by Provider: Apr 16, 2017 Time Seen by Provider: 13:24 Narrative 46 y/o male here with reports of Suicidal thoughts but no specific plan as well as ETOH withdrawl and Seizures S/P ETOH withdrawl. States Chest pain of 7/10. Vital Signs reviewed. Patient is Stable and awaiting Bed Placement. [facility] Medical Record Reviewed: Yes Supervised Visit with JULIO: Yes Scripts No Active Prescriptions or Reported Meds Condition: Stable Sreedhar Galicia Apr 16, 2017 13:27
[2017-04-16 13:51] LABS: BLOOD, URINE NEG (NEG); COMMENT (UR) CULT NOT INDICATED; CULTURE IF INDICATED CULT NOT INDICATED; GLUCOSE,URINE NEG (NEG); KETONE, URINE NEG (NEG); NITRITE,URINE NEG (NEG); URINE COLOR YELLOW (YELLW/STRAW)
--- NOTE | 2017-04-17 13:39 | EKG ---
Date Performed: 04/16/2017 Time Performed: 13:44:51 PTAGE: 46 years EKG: Sinus rhythm NORMAL ECG Compared to prior tracing no significant change PREVIOUS TRACING : 03/09/2017 14.05 DOCTOR: Rachna Francisco Interpretating Date/Time 04/17/2017 13:37:22
== END 2017-04-16 15:05 | disposition left against medical advice (07) ==
LOC: NEDAMB 12:57
DX: R45.851 Suicidal ideations (principal); R07.9 Chest pain, unspecified
CPT/HCPCS: 80307; 81001; 93005; 99284

== ENCOUNTER 2017-04-19 21:49 | Emergency (ER) | payer SELFPAY ==
[~2017-04-19] VITALS: Ht 172.7 cm; Wt 75.0 kg
[2017-04-19 21:52] VITALS: BP 121/69; PULSE 122; RESP 18; TEMP 98.6; O2SAT 96
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
[2017-04-19 22:23] VITALS: BP 104/62; PULSE 107; RESP 18; O2SAT 97
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
[2017-04-19] MEDS ORDERED: ONDANSETRON HCL 4 MG/2 ML VIAL IV PUSH ONE (22:30)
[2017-04-19] MEDS ORDERED: SODIUM CHLOR 0.9% 1000 ML INJ 1,000 ML IV ONE (22:30)
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
== END 2017-04-19 22:50 | disposition left against medical advice (07) ==
LOC: NEPC 21:49
DX: S00.81XA Abrasion of other part of head, initial encounter (principal); Y00.XXXA Assault by blunt object, initial encounter; J44.9 Chronic obstructive pulmonary disease, unspecified; F10.10 Alcohol abuse, uncomplicated; F17.290 Nicotine dependence, other tobacco product, uncomplicated
CPT/HCPCS: 70450; 70486; 99284

== ENCOUNTER 2017-04-20 00:23 | Emergency (ER) | payer OTHER ==
[~2017-04-20] VITALS: Ht 177.8 cm; Wt 68.0 kg
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
[2017-04-20 01:22] VITALS: BP 104/68; PULSE 95; RESP 12; TEMP 98.5; O2SAT 96
[2017-04-20 01:33] LABS: AUTOMATED NEUTROPHIL # 11.6 TH/MM3 (1.8-7.7); BASOPHIL # 0.1 TH/MM3 (0-0.2); BASOPHIL % 0.9 % (0.0-2.0); EOSINOPHIL # 0.3 TH/MM3 (0-0.4); EOSINOPHIL % 1.8 % (0.0-4.0); HEMATOCRIT 46.2 % (39.0-51.0); HEMO FLAGS DIFF FINAL; LYMPH % 21.8 % (9.0-44.0); LYMPHOCYTE # 3.6 TH/MM3 (1.0-4.8); MEAN CELL VOLUME 92.1 FL (80.0-100.0); MEAN CORPUSCULAR HEMOGLOBIN 31.7 PG (27.0-34.0); MEAN CORPUSCULAR HGB CONC 34.4 % (32.0-36.0); MONO % 4.9 % (0.0-8.0); NEUT % 70.6 % (16.0-70.0); PLATELET COUNT 199 TH/MM3 (150-450); RED BLOOD COUNT 5.02 MIL/MM3 (4.50-5.90); RED CELL DISTRIBUTION WIDTH 14.1 % (11.6-17.2); WHITE BLOOD COUNT 16.4 TH/MM3 (4.0-11.0)
[2017-04-20 01:50] LABS: ALKALINE PHOSPHATASE 65 U/L (45-117); BLOOD UREA NITROGEN 13 MG/DL (7-18); TOTAL BILIRUBIN ADULT 0.8 MG/DL (0.2-1.0)
[2017-04-20] MEDS ORDERED: LORazepam 2 MG/ML VIAL IM ONE (02:00)
[2017-04-20] MEDS ORDERED: HALOPERIDOL LACTATE 5 MG/ML AMP IM ONE ×2 (02:00→03:15)
[2017-04-20 02:01] LABS: ALT (GPT) 52 U/L (12-78); ANION GAP 9 MEQ/L (5-15); AST (GOT) 36 U/L (15-37); BICARBONATE 22.3 MEQ/L (21.0-32.0); CHLORIDE 112 MEQ/L (98-107); GLOMERULAR FILTRATION RATE 113 ML/MIN (>89); POTASSIUM 3.8 MEQ/L (3.5-5.1); SODIUM (NA) 143 MEQ/L (136-145)
[2017-04-20 02:02] LABS: ALCOHOL 156 MG/DL (0-5)
[2017-04-20 07:10] VITALS: BP 122/81; PULSE 76; RESP 17; TEMP 97.8; O2SAT 99
[2017-04-20 11:09] VITALS: BP_SYST 130; BP_SYST 144; BP_DIAS 78; TEMP 97.8
[2017-04-20 12:17] VITALS: BP 123/81; PULSE 94; RESP 18; TEMP 98.8; O2SAT 82
[2017-04-20 23:16] VITALS: BP 129/68; PULSE 60; RESP 16
[2017-04-21 06:47] VITALS: BP 125/69; PULSE 57; RESP 18; O2SAT 97
[2017-04-21] MEDS ORDERED: IBUPROFEN 800 MG TAB PO ONE (09:30)
[2017-04-21 17:55] VITALS: BP 132/82; PULSE 76; RESP 18
[2017-04-21] MEDS ORDERED: LORazepam 2 MG TAB PO PRN (19:00)
[2017-04-21] MEDS ORDERED: FLUMAZENIL 0.5 MG/5 ML VIAL IV PUSH PRN (19:00)
[2017-04-21] MEDS ORDERED: LORazepam 2 MG/ML VIAL IV PUSH PRN ×4 (19:00)
[2017-04-21] MEDS: LORazepam 1 MG TAB PO PRN ×2 (19:14→23:57)
[2017-04-21] MEDS ORDERED: ACETAMINOPHEN 325 MG TAB PO PRN (21:00)
[2017-04-21 22:53] VITALS: BP 138/95; PULSE 82; RESP 18; O2SAT 98
[2017-04-22 06:49] VITALS: BP 133/73; PULSE 65; RESP 18; O2SAT 98
--- NOTE | 2017-04-22 10:33 | PD ---
Physical Exam Time Seen by Provider: 10:28 Narrative I spoke with IZABELLA Asher, who evaluated the patient and has cleared the patient to be discharged home from psych. Data Data Last Documented VS Vital Signs Date Time Temp Pulse Resp B/P (MAP) Pulse Ox O2 Delivery O2 Flow Rate FiO2 04/22/17 06:49 65 18 133/73 (93) 98 04/21/17 17:55 Room Air 04/20/17 12:17 98.8 Orders Orders Complete Blood Count With Diff (04/20/17 00:45) Comprehensive Metabolic Panel (04/20/17 00:45) Psych Screen (04/20/17 00:45) Drug Screen, Random Urine (04/20/17 00:45) Alcohol (Ethanol) (04/20/17 00:45) Haloperidol Inj (Haldol Inj) (04/20/17 02:00) Lorazepam Inj (Ativan Inj) (04/20/17 02:00) Restraints Violent (04/20/17 01:47) Haloperidol Inj (Haldol Inj) (04/20/17 03:15) Diet Regular Basic (04/20/17 Breakfast) Diet Regular Basic (04/20/17 Dinner) Diet Regular Basic (04/21/17 Breakfast) Ibuprofen (Motrin) (04/21/17 09:30) Diet Regular Basic (04/21/17 Lunch) Diet Regular Basic (04/21/17 Dinner) Alcohol Withdrawal Asmt-Ciwa Q4HX18 (04/21/17 18:58) Flumazenil Inj (Romazicon Inj) (04/21/17 19:00) Lorazepam (Ativan) (04/21/17 19:00) Lorazepam Inj (Ativan Inj) (04/21/17 19:00) Lorazepam (Ativan) (04/21/17 19:00) Lorazepam Inj (Ativan Inj) (04/21/17 19:00) Lorazepam Inj (Ativan Inj) (04/21/17 19:00) Lorazepam Inj (Ativan Inj) (04/21/17 19:00) Acetaminophen (Tylenol) (04/21/17 21:00) Diet Regular Basic (04/22/17 Breakfast) Labs Laboratory Tests Test 04/20/17 01:10 8/25/17 02:40 White Blood Count 16.4 TH/MM3 Red Blood Count 5.02 MIL/MM3 Hemoglobin 15.9 GM/DL Hematocrit 46.2 % Mean Corpuscular Volume 92.1 FL Mean Corpuscular Hemoglobin 31.7 PG Mean Corpuscular Hemoglobin Concent 34.4 % Red Cell Distribution Width 14.1 % Platelet Count 199 TH/MM3 Mean Platelet Volume 8.5 FL Neutrophils (%) (Auto) 70.6 % Lymphocytes (%) (Auto) 21.8 % Monocytes (%) (Auto) 4.9 % Eosinophils (%) (Auto) 1.8 % Basophils (%) (Auto) 0.9 % Neutrophils # (Auto) 11.6 TH/MM3 Lymphocytes # (Auto) 3.6 TH/MM3 Monocytes # (Auto) 0.8 TH/MM3 Eosinophils # (Auto) 0.3 TH/MM3 Basophils # (Auto) 0.1 TH/MM3 CBC Comment DIFF FINAL Differential Comment Blood Urea Nitrogen 13 MG/DL Creatinine 0.74 MG/DL Random Glucose 102 MG/DL Total Protein 6.5 GM/DL Albumin 3.6 GM/DL Calcium Level 8.2 MG/DL Alkaline Phosphatase 65 U/L Aspartate Amino Transf (AST/SGOT) 36 U/L Alanine Aminotransferase (ALT/SGPT) 52 U/L Total Bilirubin 0.8 MG/DL Sodium Level 143 MEQ/L Potassium Level 3.8 MEQ/L Chloride Level 112 MEQ/L Carbon Dioxide Level 22.3 MEQ/L Anion Gap 9 MEQ/L Estimat Glomerular Filtration Rate 113 ML/MIN Ethyl Alcohol Level 156 MG/DL Urine Opiates Screen NEG Urine Barbiturates Screen NEG Urine Amphetamines Screen NEG Urine Benzodiazepines Screen POS Urine Cocaine Screen NEG Urine Cannabinoids Screen NEG MDM Supervised Visit with JULIO: No Narrative Course I spoke with IZABELLA Asher, who evaluated the patient and has cleared the patient to be discharged home from psych. This patient has a history of EtOH abuse. He is here often and has been observed for over 50 hours in the psych unit. The patient is ready to leave and denies suicidal and homicidal ideations. He is aware of community resources, such as [employer] I agree the patient is medically stable and cleared for discharge. Diagnosis Primary Impression: Medical clearance for psychiatric admission Additional Impressions: Substance induced mood disorder Alcohol abuse Alcohol intoxication Qualified Codes: F10.929 - Alcohol use, unspecified with intoxication, unspecified Referrals: Primary Care Physician [facility] Patient Instructions: Abuse of Alcohol (ED), Alcohol Dependence (ED), Alcohol Intoxication (ED), General Instructions, Mood Disorders (ED) Additional Instruction: Stop drinking alcohol Follow-up with primary care provider Follow-up with [facility] Return to the emergency department immediately with worsening of symptoms Med/Other Pt SpecificInfo: No Meds Exist/No RX given Scripts No Active Prescriptions or Reported Meds Disposition: 01 DISCHARGE HOME Condition: Stable Mariana Nevarez Apr 22, 2017 10:32
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
[2017-04-22 10:43] VITALS: BP 133/73; PULSE 65; RESP 18; O2SAT 98
== END 2017-04-22 11:02 | disposition home or self-care (01) ==
LOC: NEPD 00:23 → NEPJ 04-22 11:02
DX: F10.14 Alcohol abuse with alcohol-induced mood disorder (principal); J44.9 Chronic obstructive pulmonary disease, unspecified
CPT/HCPCS: 80053; 80307; 85025; 96372; 99285; J1630; J2060

== ENCOUNTER 2017-04-22 13:08 | Emergency (ER) | payer SELFPAY ==
[~2017-04-22] VITALS: Ht 170.2 cm; Wt 80.0 kg
[2017-04-22 13:12] VITALS: BP 132/82; PULSE 102; RESP 17; TEMP 97.9; O2SAT 96
[2017-04-22] MEDS ORDERED: SODIUM CHLOR 0.9% 1000 ML INJ 1,000 ML IV ONE (13:15)
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
[2017-04-22 13:54] LABS: BASOPHIL # 0.1 TH/MM3 (0-0.2); BASOPHIL % 0.4 % (0.0-2.0); EOSINOPHIL # 0.1 TH/MM3 (0-0.4); EOSINOPHIL % 0.7 % (0.0-4.0); HEMATOCRIT 50.6 % (39.0-51.0); LYMPH % 12.4 % (9.0-44.0); MEAN CELL VOLUME 93.7 FL (80.0-100.0); MEAN CORPUSCULAR HEMOGLOBIN 31.2 PG (27.0-34.0); MEAN CORPUSCULAR HGB CONC 33.3 % (32.0-36.0); MONO % 4.5 % (0.0-8.0); PLATELET COUNT 193 TH/MM3 (150-450); RED CELL DISTRIBUTION WIDTH 14.8 % (11.6-17.2); WHITE BLOOD COUNT 15.8 TH/MM3 (4.0-11.0)
[2017-04-22 14:12] LABS: HEMO FLAGS AUTO DIFF
[2017-04-22 14:17] LABS: ALKALINE PHOSPHATASE 73 U/L (45-117); ALT (GPT) 58 U/L (12-78); ANION GAP 14 MEQ/L (5-15); AST (GOT) 51 U/L (15-37); BICARBONATE 19.1 MEQ/L (21.0-32.0); BLOOD UREA NITROGEN 13 MG/DL (7-18); CHLORIDE 104 MEQ/L (98-107); GLOMERULAR FILTRATION RATE 93 ML/MIN (>89); MAGNESIUM 2.6 MG/DL (1.5-2.5); POTASSIUM 3.7 MEQ/L (3.5-5.1); SODIUM (NA) 137 MEQ/L (136-145); TOTAL BILIRUBIN ADULT 0.5 MG/DL (0.2-1.0)
[2017-04-22 14:58] LABS: PLATELET ESTIMATE SMEAR NORMAL (NORMAL); PLATELET MORPHOLOGY NORMAL (NORMAL); SCAN/DIFF AUTO DIFF CONFIRMED
--- NOTE | 2017-04-22 15:30 | PD ---
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) Psychiatric History Psychiatric History Hx Psychiatric Treatment: LONG HISTORY OF DEPRESSION, ANXIETY AND SUIDICAL IDEATIONS History of Inpatient Treatment: Yes Social History Hx Alcohol Use: Yes Hx Tobacco Use: Yes (08/28 PPD) Hx Substance Use: Yes Substance Use Type: Alcohol Other Substances Used: DRINKS EVERYDAY ALMOST DEPENDENT ON AVAILABLE FUNDS Hx of Substance Use Treatment: No Allergies-Medications (Allergen,Severity, Reaction): Coded Allergies: paroxetine (Unverified Adverse Reaction, Intermediate, Confusion, 04/22/17) Reported Meds & Prescriptions Reported Meds & Active Scripts Active No Active Prescriptions or Reported Medications Exam Alert: Yes [facility] Orders Orders Complete Blood Count With Diff (04/22/17 13:14) Comprehensive Metabolic Panel (04/22/17 13:14) Magnesium (Mg) (04/22/17 13:14) Sodium Chlor 0.9% 1000 Ml Inj (Ns 1000 M (04/22/17 13:15) Chlordiazepoxide (Librium) (04/22/17 13:15) Alcohol (Ethanol) (04/22/17 13:21) Results Vital Signs Date Time Temp Pulse Resp B/P (MAP) Pulse Ox O2 Delivery O2 Flow Rate FiO2 04/22/17 13:12 97.9 102 17 132/82 (99) 96 Laboratory Tests Test 04/22/17 13:40 White Blood Count 15.8 Red Blood Count 5.40 Hemoglobin 16.9 Hematocrit 50.6 Mean Corpuscular Volume 93.7 Mean Corpuscular Hemoglobin 31.2 Mean Corpuscular Hemoglobin Concent 33.3 Red Cell Distribution Width 14.8 Platelet Count 193 Mean Platelet Volume 9.4 Neutrophils (%) (Auto) 82.0 Lymphocytes (%) (Auto) 12.4 Monocytes (%) (Auto) 4.5 Eosinophils (%) (Auto) 0.7 Basophils (%) (Auto) 0.4 Neutrophils # (Auto) 13.0 Lymphocytes # (Auto) 2.0 Monocytes # (Auto) 0.7 Eosinophils # (Auto) 0.1 Basophils # (Auto) 0.1 CBC Comment AUTO DIFF Differential Comment AUTO DIFF CONFIRMED Platelet Estimate NORMAL Platelet Morphology Comment NORMAL Red Cell Morphology Comment NORMAL Blood Urea Nitrogen 13 Creatinine 0.88 Random Glucose 191 Total Protein 7.2 Albumin 3.8 Calcium Level 8.8 Magnesium Level 2.6 Alkaline Phosphatase 73 Aspartate Amino Transf (AST/SGOT) 51 Alanine Aminotransferase (ALT/SGPT) 58 Total Bilirubin 0.5 Sodium Level 137 Potassium Level 3.7 Chloride Level 104 Carbon Dioxide Level 19.1 Anion Gap 14 Estimat Glomerular Filtration Rate 93 Ethyl Alcohol Level 124 Diagnosis Primary Impression: Alcohol dependence Departure Forms: Tests/Procedures Patient Instructions: General Instructions Additional Instructions: Follow-up at [facility]. Quit drinking. Prescriptions No Active Prescriptions or Reported Meds Disposition: 07 AGAINST MEDICAL ADVICE Condition: Stable Problem Qualifiers Primary Impression: Alcohol dependence Qualified Codes: F10.20 - Alcohol dependence, uncomplicated Lakeshia Kirk [facility] Apr 22, 2017 15:30
== END 2017-04-22 14:15 | disposition left against medical advice (07) ==
LOC: NEPE 13:08
DX: F10.20 Alcohol dependence, uncomplicated (principal); J44.9 Chronic obstructive pulmonary disease, unspecified; F41.9 Anxiety disorder, unspecified
CPT/HCPCS: 80053; 80307; 83735; 85025; 96360; 99283; J7030

== ENCOUNTER 2017-04-22 21:49 | Emergency (ER) | payer OTHER ==
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
[2017-04-22 23:23] LABS: ALT (GPT) 55 U/L (12-78)
[2017-04-22 23:25] LABS: ALKALINE PHOSPHATASE 69 U/L (45-117); AUTOMATED NEUTROPHIL # 14.3 TH/MM3 (1.8-7.7); BASOPHIL # 0.3 TH/MM3 (0-0.2); BASOPHIL % 1.4 % (0.0-2.0); EOSINOPHIL # 0.2 TH/MM3 (0-0.4); EOSINOPHIL % 1.1 % (0.0-4.0); HEMATOCRIT 48.9 % (39.0-51.0); LYMPH % 14.1 % (9.0-44.0); LYMPHOCYTE # 2.6 TH/MM3 (1.0-4.8); MEAN CELL VOLUME 92.9 FL (80.0-100.0); MEAN CORPUSCULAR HEMOGLOBIN 31.6 PG (27.0-34.0); MONO % 4.7 % (0.0-8.0); NEUT % 78.7 % (16.0-70.0); PLATELET COUNT 217 TH/MM3 (150-450); RED BLOOD COUNT 5.27 MIL/MM3 (4.50-5.90); RED CELL DISTRIBUTION WIDTH 14.5 % (11.6-17.2); TOTAL BILIRUBIN ADULT 0.6 MG/DL (0.2-1.0); WHITE BLOOD COUNT 18.2 TH/MM3 (4.0-11.0)
[2017-04-22 23:26] LABS: ANION GAP 13 MEQ/L (5-15); AST (GOT) 39 U/L (15-37); BICARBONATE 21.2 MEQ/L (21.0-32.0); BLOOD UREA NITROGEN 14 MG/DL (7-18); CHLORIDE 106 MEQ/L (98-107); GLOMERULAR FILTRATION RATE 97 ML/MIN (>89); POTASSIUM 3.4 MEQ/L (3.5-5.1); SODIUM (NA) 140 MEQ/L (136-145)
[2017-04-22 23:30] LABS: ALCOHOL 166 MG/DL (0-5)
[2017-04-22 23:34] LABS: HEMO FLAGS AUTO DIFF
[2017-04-23 00:48] LABS: BASOPHILS 1 % (0-2); MYELOCYTES 3 % (0-0); NEUTROPHIL # MANUAL DIFF 15.5 TH/MM3 (1.8-7.7); POLYS (SEG NEUTROPHILS) 82 % (16-70); WBC DIFF SAMPLE 100
[2017-04-23 00:49] LABS: PLATELET ESTIMATE SMEAR NORMAL (NORMAL); PLATELET MORPHOLOGY NORMAL (NORMAL); SCAN/DIFF FINAL DIFF MANUAL; TEARDROP RBCS 1+ (NORMAL)
[2017-04-23 07:00] VITALS: BP 128/78; PULSE 74; RESP 16; TEMP 98.7; O2SAT 98
[2017-04-23] MEDS ORDERED: IBUPROFEN 800 MG TAB PO ONE (07:45)
[2017-04-23 10:11] VITALS: BP 122/72; TEMP 98
--- NOTE | 2017-04-23 10:14 | PD ---
History of Present Illness Chief Complaint: Psychiatric Symptoms Time Seen by Provider: 10:00 Travel History International Travel<30 Days: No Contact w/Intl Traveler<30days: No Known affected area: No Legal Status Legal Status: Palencia Act Palencia Act Signed By: Deysi Medina History of Present Illness: Patient known to this physician. He has a long history of alcoholism. He is now stating that he has no suicidal or homicidal ideation, plan or intent. He denies any psychotic symptoms and his cognition is intact. He is verbally lori for safety and reports he has a job interview he wants to attend. As the patient is competent to contract for safety, this physician discontinued his Palencia act. Patient once again advised to stop drinking and go to treatment at [facility] ([facility]3]. 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 WAS RECENTLY AT [facility]. Patient no longer intoxicated and not suicidal. History of Inpatient Treatment: Yes Guns or firearms in home: No Social History Hx Alcohol Use: Yes Hx Tobacco Use: Yes (1/2 PPD) Hx Substance Use: Yes Substance Use Type: Alcohol Other Substances Used: DRINKS EVERYDAY ALMOST DEPENDENT ON AVAILABLE FUNDS Hx of Substance Use Treatment: No Allergies-Medications (Allergen,Severity, Reaction): Coded Allergies: paroxetine (Unverified Adverse Reaction, Intermediate, Confusion, 04/22/17) Reported Meds & Prescriptions Reported Meds & Active Scripts Active No Active Prescriptions or Reported Medications Review of Systems Except as stated in HPI: all other systems reviewed are Neg Exam Alert: Yes [place]: Person, Place, Date, Situation Mood: Calm Affect: Appropriate Speech: Clear, Logical Eye Contact: Normal Memory Intact: Immediate, Recent, Remote Insight/Judgement Adequate MDM Medical Decision Making Medical Record Reviewed: Yes Assessment/Plan Patient's medical record was reviewed, he was interviewed at bedside and case discussed with nurse. He is verbally lori for safety and he is competent to do so. No cognitive deficits and no psychosis. Palencia act being lifted and patient advised to discontinue alcohol use. Orders Orders Complete Blood Count With Diff (04/22/17 22:14) Comprehensive Metabolic Panel (04/22/17 22:14) Psych Screen (04/22/17 22:14) Drug Screen, Random Urine (04/22/17 22:14) Alcohol (Ethanol) (04/22/17 22:14) Diet Regular Basic (04/23/17 Breakfast) Ibuprofen (Motrin) (04/23/17 07:45) Results Vital Signs Date Time Temp Pulse Resp B/P (MAP) Pulse Ox O2 Delivery O2 Flow Rate FiO2 04/23/17 07:00 98.7 74 16 128/78 (95) 98 Room Air Laboratory Tests Test 04/22/17 22:40 White Blood Count 18.2 Red Blood Count 5.27 Hemoglobin 16.6 Hematocrit 48.9 Mean Corpuscular Volume 92.9 Mean Corpuscular Hemoglobin 31.6 Mean Corpuscular Hemoglobin Concent 34.0 Red Cell Distribution Width 14.5 Platelet Count 217 Mean Platelet Volume 8.8 Neutrophils (%) (Auto) 78.7 Lymphocytes (%) (Auto) 14.1 Monocytes (%) (Auto) 4.7 Eosinophils (%) (Auto) 1.1 Basophils (%) (Auto) 1.4 Neutrophils # (Auto) 14.3 Lymphocytes # (Auto) 2.6 Monocytes # (Auto) 0.9 Eosinophils # (Auto) 0.2 Basophils # (Auto) 0.3 CBC Comment AUTO DIFF Differential Total Cells Counted 100 Neutrophils % (Manual) 82 Lymphocytes % 11 Monocytes % 3 Basophils % 1 Neutrophils # (Manual) 15.5 Myelocytes 3 Differential Comment FINAL DIFF MANUAL Platelet Estimate NORMAL Platelet Morphology Comment NORMAL Tear Drop Cells 1+ Blood Urea Nitrogen 14 Creatinine 0.85 Random Glucose 149 Total Protein 6.6 Albumin 3.6 Calcium Level 8.4 Alkaline Phosphatase 69 Aspartate Amino Transf (AST/SGOT) 39 Alanine Aminotransferase (ALT/SGPT) 55 Total Bilirubin 0.6 Sodium Level 140 Potassium Level 3.4 Chloride Level 106 Carbon Dioxide Level 21.2 Anion Gap 13 Estimat Glomerular Filtration Rate 97 Ethyl Alcohol Level 166 Diagnosis Primary Impression: Adjustment disorder with mixed disturbance of emotions and conduct Additional Impression: Alcohol abuse Prescriptions No Active Prescriptions or Reported Meds Problem Qualifiers Jason Razo MD Apr 23, 2017 10:14
--- NOTE | 2017-04-23 11:00 | PD ---
Physical Exam Time Seen by Provider: 10:57 Narrative This patient was discharged prior to disposition. Dr. Razo evaluated the patient and lifted the Palencia act and the patient was discharged home. Data Data Last Documented VS Vital Signs Date Time Temp Pulse Resp B/P (MAP) Pulse Ox O2 Delivery O2 Flow Rate FiO2 04/23/17 10:11 98.0 81 16 122/72 (89) 99 04/23/17 07:00 Room Air Orders Orders Complete Blood Count With Diff (04/22/17 22:14) Comprehensive Metabolic Panel (04/22/17 22:14) Psych Screen (04/22/17 22:14) Drug Screen, Random Urine (04/22/17 22:14) Alcohol (Ethanol) (04/22/17 22:14) Diet Regular Basic (04/23/17 Breakfast) Ibuprofen (Motrin) (04/23/17 07:45) Labs Laboratory Tests Test 04/22/17 22:40 White Blood Count 18.2 TH/MM3 Red Blood Count 5.27 MIL/MM3 Hemoglobin 16.6 GM/DL Hematocrit 48.9 % Mean Corpuscular Volume 92.9 FL Mean Corpuscular Hemoglobin 31.6 PG Mean Corpuscular Hemoglobin Concent 34.0 % Red Cell Distribution Width 14.5 % Platelet Count 217 TH/MM3 Mean Platelet Volume 8.8 FL Neutrophils (%) (Auto) 78.7 % Lymphocytes (%) (Auto) 14.1 % Monocytes (%) (Auto) 4.7 % Eosinophils (%) (Auto) 1.1 % Basophils (%) (Auto) 1.4 % Neutrophils # (Auto) 14.3 TH/MM3 Lymphocytes # (Auto) 2.6 TH/MM3 Monocytes # (Auto) 0.9 TH/MM3 Eosinophils # (Auto) 0.2 TH/MM3 Basophils # (Auto) 0.3 TH/MM3 CBC Comment AUTO DIFF Differential Total Cells Counted 100 Neutrophils % (Manual) 82 % Lymphocytes % 11 % Monocytes % 3 % Basophils % 1 % Neutrophils # (Manual) 15.5 TH/MM3 Myelocytes 3 % Differential Comment FINAL DIFF MANUAL Platelet Estimate NORMAL Platelet Morphology Comment NORMAL Tear Drop Cells 1+ Blood Urea Nitrogen 14 MG/DL Creatinine 0.85 MG/DL Random Glucose 149 MG/DL Total Protein 6.6 GM/DL Albumin 3.6 GM/DL Calcium Level 8.4 MG/DL Alkaline Phosphatase 69 U/L Aspartate Amino Transf (AST/SGOT) 39 U/L Alanine Aminotransferase (ALT/SGPT) 55 U/L Total Bilirubin 0.6 MG/DL Sodium Level 140 MEQ/L Potassium Level 3.4 MEQ/L Chloride Level 106 MEQ/L Carbon Dioxide Level 21.2 MEQ/L Anion Gap 13 MEQ/L Estimat Glomerular Filtration Rate 97 ML/MIN Ethyl Alcohol Level 166 MG/DL MDM Supervised Visit with JULIO: No Narrative Course This patient was discharged prior to disposition. Dr. Razo evaluated the patient and lifted the Palencia act and the patient was discharged home. According to Dr. Razo's note the patient has history of alcohol abuse. He is apparently well known to Dr. Razo and the patient contracted safety and voiced he wanted to attend a job interview. The patient denied suicidal or homicidal ideation. He was advised to stop drinking and follow-up with [facility]. Patient was discharged home. Diagnosis Primary Impression: Adjustment disorder with mixed disturbance of emotions and conduct Additional Impression: Alcohol abuse Patient Instructions: General Instructions, Alcohol Dependence (ED) Departure Forms: Tests/Procedures Scripts No Active Prescriptions or Reported Meds Disposition: 01 DISCHARGE HOME Condition: Stable Mariana Nevarez Apr 23, 2017 10:59
== END 2017-04-23 10:18 | disposition home or self-care (01) ==
LOC: NEPD 21:49
DX: F43.25 Adjustment disorder with mixed disturbance of emotions and conduct (principal); F10.10 Alcohol abuse, uncomplicated; J44.9 Chronic obstructive pulmonary disease, unspecified; Z59.0 Homelessness
CPT/HCPCS: 80053; 80307; 85007; 85027; 99283

== ENCOUNTER 2017-04-27 00:54 | Emergency (ER) | payer SELFPAY ==
[2017-04-27 00:56] VITALS: BP 171/102; PULSE 120; RESP 20; TEMP 98.7; O2SAT 98
== END 2017-04-27 03:14 | disposition left against medical advice (07) ==
LOC: NED 00:54
DX: Z03.89 Encounter for observation for other suspected diseases and conditions ruled out (principal)
CPT/HCPCS: 99281

== ENCOUNTER 2017-04-28 19:46 | Emergency (ER) | payer SELFPAY ==
[~2017-04-28] VITALS: Ht 172.7 cm; Wt 70.0 kg
[2017-04-28 19:57] VITALS: BP 137/87; PULSE 93; RESP 16; TEMP 97.6; O2SAT 99
--- NOTE | 2017-04-28 20:24 | PD ---
HPI Chief Complaint: Psychiatric Symptoms Time Seen by Provider: 20:01 Travel History International Travel<30 days: No Contact w/Intl Traveler<30days: No Traveled to known affect area: No History of Present Illness HPI 46-year-old white male presents to emergency department for evaluation of alcohol intoxication. Patient states that he is concerned regarding alcohol withdrawal although he just drank prior to coming in. He states that he has nowhere to go. Its raining out side. He is also hungry and cold. 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) Tobacco Use: Yes (1/2 PPD) Substance Use: Yes Allergies-Medications (Allergen,Severity, Reaction): Coded Allergies: paroxetine (Unverified Adverse Reaction, Intermediate, Confusion, 04/28/17) Reported Meds & Prescriptions Reported Meds & Active Scripts Active No Active Prescriptions or Reported Medications Review of Systems Except as stated in HPI: all other systems reviewed are Neg General / Constitutional: No: Fever, Chills Eyes: No: Blurred Vision, Photophobia HENT: No: Lightheadedness, Sore Throat Cardiovascular: No: Chest Pain or Discomfort, Palpitations Respiratory: No: Cough, Shortness of Breath Gastrointestinal: No: Nausea, Vomiting Genitourinary: No: Dysuria, Hematuria Musculoskeletal: No: Weakness, Edema Skin: No Rash, No Itching Neurologic: No: Headache, Sensory Disturbance Psychiatric: Positive: Depression, Mood Disorder, Substance Abuse, No: Anxiety , Suicidal Ideations, Disorder of Thought Physical Exam Narrative GENERAL: Well-nourished, well-developed patient. Smells of EtOH . Patient ambulates with a steady gait. SKIN: Warm and dry. HEAD: Normocephalic and atraumatic. EYES: No scleral icterus. No injection or drainage. ENT: No nasal drainage noted. Mucous membranes pink. Airway patent. NECK: Supple, trachea midline. Moves head freely without obvious discomfort. CARDIOVASCULAR: Regular rate and rhythm without murmurs, gallops, or rubs. RESPIRATORY: Breath sounds equal bilaterally. No accessory muscle use. GASTROINTESTINAL: Abdomen soft, non-tender, nondistended. EXTREMITIES: No cyanosis or edema. BACK: Nontender without obvious deformity. No CVA tenderness. NEURO: Patient is alert and oriented. no sensorimotor deficits. Nonfocal. Normal speech. PSYCH: No delusions. No auditory or visual hallucinations. Data Data Last Documented VS Vital Signs Date Time Temp Pulse Resp B/P (MAP) Pulse Ox O2 Delivery O2 Flow Rate FiO2 04/28/17 19:57 97.6 93 16 137/87 (104) 99 Room Air MDM Medical Decision Making Medical Screen Exam Complete: Yes Emergency Medical Condition: Yes Medical Record Reviewed: Yes Differential Diagnosis Differential diagnoses: Alcohol intoxication, substance abuse, electrolyte abnormality, malingering Narrative Course The patient has been drinking alcohol. There is no evidence of withdrawal. There is no evidence of suicidal or homicidal ideation. I suspect this is a malingering action on the patient to obtain a domicile for the evening. It is cold, wet raining outside. The patient will be allowed to sober up In the ER and will be discharged. This is alcohol intoxication Diagnosis Primary Impression: Alcohol intoxication Qualified Codes: F10.920 - Alcohol use, unspecified with intoxication, uncomplicated Patient Instructions: General Instructions Additional Instructions: Rest. Increase fluids. Avoid alcohol. Avoid illegal substances. Follow-up with [facility] for detox. Do not operate a car or any heavy machinery under the influence of alcohol or drugs. Follow-up with a medical doctor this week. Return to the ER for emergencies Med/Other Pt SpecificInfo: No Meds Exist/No RX given Scripts No Active Prescriptions or Reported Meds Disposition: 01 DISCHARGE HOME Condition: Stable Tramaine Sagastume Apr 28, 2017 20:24
== END 2017-04-28 21:16 | disposition home or self-care (01) ==
LOC: NEPD 19:46
DX: F10.920 Alcohol use, unspecified with intoxication, uncomplicated (principal)
CPT/HCPCS: 99281

== ENCOUNTER 2017-04-28 22:05 | Emergency (ER) | payer OTHER ==
[~2017-04-28] VITALS: Ht 172.7 cm; Wt 84.5 kg
[2017-04-28 22:18] VITALS: BP 134/84; PULSE 76; RESP 16; TEMP 98.6
--- NOTE | 2017-04-28 22:52 | PD ---
HPI Chief Complaint: Alcohol/Drug Intoxication Time Seen by Provider: 22:48 Travel History International Travel<30 days: No Contact w/Intl Traveler<30days: No Traveled to known affect area: No History of Present Illness HPI 46-year-old white male well-known to the ER staff for multiple ER visits due to alcohol abuse returns again on her act. This patient was just seen earlier today by me. The patient was noted to be sleeping on the ground and was contacted by PD. The patient refused to be compliant with police. They felt he was intoxicated and brought him to the ER. The patient here denies any medical complaints. He is requesting something to eat. 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 SKIN: Warm and dry. HEAD: Normocephalic and atraumatic. EYES: No scleral icterus. No injection or drainage. ENT: No nasal drainage noted. Mucous membranes pink. Airway patent. NECK: Supple, trachea midline. Moves head freely without obvious discomfort. CARDIOVASCULAR: Regular rate and rhythm without murmurs, gallops, or rubs. RESPIRATORY: Breath sounds equal bilaterally. No accessory muscle use. GASTROINTESTINAL: Abdomen soft, non-tender, nondistended. EXTREMITIES: No cyanosis or edema. BACK: Nontender without obvious deformity. No CVA tenderness. NEURO: Patient is alert and oriented. no sensorimotor deficits. Nonfocal. Normal speech. PSYCH: No delusions. No auditory or visual hallucinations. MDM Medical Decision Making Medical Screen Exam Complete: Yes Emergency Medical Condition: Yes Medical Record Reviewed: Yes Differential Diagnosis Differential diagnoses: Alcohol intoxication, substance abuse, electrolyte abnormality, malingering Narrative Course The patient is here under a Marchman act. The patient will be allowed to sleep here in the ER and will be released in the morning. This is alcohol intoxication Diagnosis Primary Impression: Alcohol dependence with intoxication Ruled Out: Alcohol withdrawal Patient Instructions: General Instructions Additional Instructions: Rest. Increase fluids. Avoid alcohol. Avoid illegal substances. Follow-up with [facility] for detox. Do not operate a car or any heavy machinery under the influence of alcohol or drugs. Follow-up with a medical doctor this week. Return to the ER for emergencies Scripts No Active Prescriptions or Reported Meds Disposition: 01 DISCHARGE HOME Condition: Stable Tramaine Sagastume Apr 28, 2017 22:52
[2017-04-29 05:19] VITALS: BP 145/77
== END 2017-04-29 05:20 | disposition home or self-care (01) ==
LOC: NEDAMB 22:05
DX: F10.229 Alcohol dependence with intoxication, unspecified (principal)
CPT/HCPCS: 99281

== ENCOUNTER 2017-05-02 17:46 | Emergency (ER) | payer SELFPAY ==
[~2017-05-02] VITALS: Ht 172.7 cm; Wt 79.0 kg
[2017-05-02 18:00] VITALS: BP 144/81; PULSE 112; RESP 20; TEMP 98.7; O2SAT 97
[2017-05-02 18:03] VITALS: BP 144/81; PULSE 112; RESP 20; TEMP 98.7; O2SAT 96
[2017-05-02] MEDS ORDERED: chlordiazePOXIDE 25 MG CAP PO STA (18:07)
--- NOTE | 2017-05-02 18:12 | PD ---
HPI Chief Complaint: Anxiety Time Seen by Provider: 17:55 Travel History International Travel<30 days: No Contact w/Intl Traveler<30days: No Traveled to known affect area: No History of Present Illness HPI Social 46-year-old man presents emergent from complaining of cough congestion and some shortness of breath as well as anxiety and alcohol withdrawal symptoms. Frequent visitor the emergency department. Last drank an hour and a half ago. States he drank some alcohol to help with the shakes and hallucinations. 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 SKIN: Focused skin assessment warm/dry. HEAD: Atraumatic. Normocephalic. EYES: Pupils equal and round. No scleral icterus. No injection or drainage. ENT: No nasal bleeding or discharge. Mucous membranes pink and moist. NECK: Trachea midline. No JVD. CARDIOVASCULAR: Regular rate and rhythm. No murmur appreciated. RESPIRATORY: No accessory muscle use. Clear to auscultation. Breath sounds equal bilaterally. GASTROINTESTINAL: Abdomen soft, non-tender, nondistended. Hepatic and splenic margins not palpable. MUSCULOSKELETAL: No obvious deformities. No clubbing. No cyanosis. No edema. Data Data Last Documented VS Vital Signs Date Time Temp Pulse Resp B/P (MAP) Pulse Ox O2 Delivery O2 Flow Rate FiO2 05/02/17 18:03 98.7 112 20 144/81 (102) 96 Room Air Orders Orders Chlordiazepoxide (Librium) (05/02/17 18:07) Albuterol Hfa Inh (Proair Hfa Inh) (05/02/17 18:15) Guaifenesin Er (Mucinex Er) (05/02/17 18:15) MDM Medical Decision Making Medical Screen Exam Complete: Yes Emergency Medical Condition: Yes Differential Diagnosis Cough cold, pneumonia, reactive airway disease, other Narrative Course Medical decision making 46-year-old man, frequent emergency department patient, here with cough cold symptoms. He looks fine. Is some faint wheezing. He is a daily to diaper day smoker. Recommend tobacco cessation, as well as alcohol cessation. Follow-up with [facility] for alcohol abuse treatment. Diagnosis Primary Impression: Bronchitis Additional Instructions: Use [id number] cough cold medicine. Use inhaler every 4-6 hours as needed. Follow-up with [facility] Lovell if you want treatment for alcoholism. Scripts No Active Prescriptions or Reported Meds Disposition: 01 DISCHARGE HOME Condition: Stable Jaron Hall MD May 02, 2017 18:12
[2017-05-02] MEDS ORDERED: ALBUTEROL SULFATE 90 MCG/ACT HFA 8 GM INHALER INH ONE (18:15)
[2017-05-02] MEDS ORDERED: guaiFENesin E.R. 600 MG TAB PO ONE (18:15)
== END 2017-05-02 19:16 | disposition home or self-care (01) ==
LOC: NEPC 17:46
DX: J20.9 Acute bronchitis, unspecified (principal)
CPT/HCPCS: 99283

== ENCOUNTER 2017-05-16 10:57 | Emergency (ER) | payer SELFPAY ==
[~2017-05-16] VITALS: Ht 172.7 cm; Wt 68.0 kg
[2017-05-16 10:59] VITALS: BP 150/82; PULSE 92; RESP 20; TEMP 98.4; O2SAT 97
[2017-05-16] MEDS ORDERED: SULFAMETHOXAZOLE-TRIMETHOPRIM DS 800-160 MG TAB PO ONE (12:30)
[2017-05-16] MEDS ORDERED: CEPHALEXIN MONOHYDRATE 500 MG CAP PO ONE (12:30)
[2017-05-16] MEDS ORDERED: IBUPROFEN 800 MG TAB PO ONE (12:30)
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
[2017-05-16] MEDS ORDERED: ERYTHROMYCIN 0.5% OPTH OINT 3.5 GM TUBO LEFT EYE ONE (12:45)
[2017-05-16] MEDS ORDERED: ERYTOIN10 LEFT EYE (13:11)
[2017-05-16] MEDS ORDERED: BACT800T5 PO (13:11)
[2017-05-16] MEDS ORDERED: CEPH-460 PO (13:11)
== END 2017-05-16 13:43 | disposition home or self-care (01) ==
LOC: NEPD 10:57
DX: L03.90 Cellulitis, unspecified (principal); H01.9 Unspecified inflammation of eyelid; J44.9 Chronic obstructive pulmonary disease, unspecified; Z72.0 Tobacco use
CPT/HCPCS: 99284

== ENCOUNTER 2017-05-19 17:50 | Emergency (ER) | payer SELFPAY ==
[~2017-05-19] VITALS: Ht 170.2 cm; Wt 74.0 kg
[~2017-05-19 17:50] MED LIST changes: +CEPH-460 PO; +ERYTOIN10 LEFT EYE
[2017-05-19] MEDS ORDERED: REME30TA PO (18:05)
[2017-05-19] MEDS ORDERED: VIST50CA PO (18:05)
[2017-05-19] MEDS ORDERED: LEXA10TA PO (18:05)
[2017-05-19 18:06] VITALS: BP 126/69; PULSE 89; RESP 17; TEMP 98; O2SAT 98
[2017-05-19] MEDS ORDERED: SODIUM CHLORIDE 0.9% FLUSH 10 ML FLUSH IVF PRN (18:15)
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
[2017-05-19 19:30] LABS: ALCOHOL 53 MG/DL (0-5); ALT (GPT) 17 U/L (12-78); ANION GAP 13 MEQ/L (5-15); AST (GOT) 12 U/L (15-37); BICARBONATE 20.3 MEQ/L (21.0-32.0); BLOOD UREA NITROGEN 19 MG/DL (7-18); CHLORIDE 104 MEQ/L (98-107); GLOMERULAR FILTRATION RATE 67 ML/MIN (>89); POTASSIUM 3.6 MEQ/L (3.5-5.1); SODIUM (NA) 137 MEQ/L (136-145)
[2017-05-19 19:32] LABS: ALKALINE PHOSPHATASE 129 U/L (45-117); TOTAL BILIRUBIN ADULT 0.3 MG/DL (0.2-1.0)
[2017-05-19 19:45] LABS: AUTOMATED NEUTROPHIL # 8.7 TH/MM3 (1.8-7.7); BASOPHIL # 0.1 TH/MM3 (0-0.2); BASOPHIL % 0.9 % (0.0-2.0); EOSINOPHIL # 0.3 TH/MM3 (0-0.4); EOSINOPHIL % 2.2 % (0.0-4.0); HEMATOCRIT 45.5 % (39.0-51.0); HEMO FLAGS DIFF FINAL; LYMPH % 22.2 % (9.0-44.0); LYMPHOCYTE # 2.8 TH/MM3 (1.0-4.8); MEAN CELL VOLUME 97.4 FL (80.0-100.0); MEAN CORPUSCULAR HEMOGLOBIN 32.6 PG (27.0-34.0); MEAN CORPUSCULAR HGB CONC 33.4 % (32.0-36.0); NEUT % 68.7 % (16.0-70.0); PLATELET COUNT 196 TH/MM3 (150-450); RED BLOOD COUNT 4.67 MIL/MM3 (4.50-5.90); RED CELL DISTRIBUTION WIDTH 17.1 % (11.6-17.2); WHITE BLOOD COUNT 12.6 TH/MM3 (4.0-11.0)
--- NOTE | 2017-05-20 04:29 | PD ---
Physical Exam Time Seen by Provider: 04:28 Narrative Please refer to previous providers documentation for details surrounding the patient's current visit. Data Data Last Documented VS Vital Signs Date Time Temp Pulse Resp B/P (MAP) Pulse Ox O2 Delivery O2 Flow Rate FiO2 05/19/17 18:10 89 16 05/19/17 18:06 98.0 126/69 (88) 98 Orders Orders Complete Blood Count With Diff (05/19/17 18:07) Comprehensive Metabolic Panel (05/19/17 18:07) Iv Access Insert/Monitor (05/19/17 18:07) Psych Screen (05/19/17 18:07) Sodium Chloride 0.9% Flush (Ns Flush) (05/19/17 18:15) Drug Screen, Random Urine (05/19/17 18:07) Alcohol (Ethanol) (05/19/17 18:07) Wound Culture And Gram Stain (05/19/17 19:18) Labs Laboratory Tests Test 05/19/17 18:20 05/19/17 18:35 White Blood Count 12.6 TH/MM3 Red Blood Count 4.67 MIL/MM3 Hemoglobin 15.2 GM/DL Hematocrit 45.5 % Mean Corpuscular Volume 97.4 FL Mean Corpuscular Hemoglobin 32.6 PG Mean Corpuscular Hemoglobin Concent 33.4 % Red Cell Distribution Width 17.1 % Platelet Count 196 TH/MM3 Mean Platelet Volume 9.0 FL Neutrophils (%) (Auto) 68.7 % Lymphocytes (%) (Auto) 22.2 % Monocytes (%) (Auto) 6.0 % Eosinophils (%) (Auto) 2.2 % Basophils (%) (Auto) 0.9 % Neutrophils # (Auto) 8.7 TH/MM3 Lymphocytes # (Auto) 2.8 TH/MM3 Monocytes # (Auto) 0.8 TH/MM3 Eosinophils # (Auto) 0.3 TH/MM3 Basophils # (Auto) 0.1 TH/MM3 CBC Comment DIFF FINAL Differential Comment Blood Urea Nitrogen 19 MG/DL Creatinine 1.16 MG/DL Random Glucose 90 MG/DL Total Protein 6.4 GM/DL Albumin 3.4 GM/DL Calcium Level 8.1 MG/DL Alkaline Phosphatase 129 U/L Aspartate Amino Transf (AST/SGOT) 12 U/L Alanine Aminotransferase (ALT/SGPT) 17 U/L Total Bilirubin 0.3 MG/DL Sodium Level 137 MEQ/L Potassium Level 3.6 MEQ/L Chloride Level 104 MEQ/L Carbon Dioxide Level 20.3 MEQ/L Anion Gap 13 MEQ/L Estimat Glomerular Filtration Rate 67 ML/MIN Ethyl Alcohol Level 53 MG/DL Urine Opiates Screen NEG Urine Barbiturates Screen NEG Urine Amphetamines Screen NEG Urine Benzodiazepines Screen NEG Urine Cocaine Screen NEG Urine Cannabinoids Screen NEG MDM Medical Record Reviewed: Yes Supervised Visit with JULIO: No Differential Diagnosis Mood disorder versus personality disorder versus adjustment reaction disorder Narrative Course Sit 46-year-old male presents to emergency department voluntarily for psychiatric evaluation. Patient has been seen and evaluated and medically cleared by Earline Purcell. Please refer to her documentation for details surrounding the patient's visit. Patient has had psychiatric screening and does not meet inpatient criteria. He'll be discharged at this time. Diagnosis Primary Impression: Alcohol-induced mood disorder Referrals: [facility] (Out patient) Patient Instructions: Abuse of Alcohol (ED), General Instructions Additional Instruction: Follow-up with a primary care provider Return immediately with any acute worsening of symptoms Med/Other Pt SpecificInfo: No Change to Meds Disposition: 01 DISCHARGE HOME Condition: Stable Olivia Olea May 20, 2017 04:29
== END 2017-05-20 05:03 | disposition home or self-care (01) ==
LOC: NEPD 17:50 → NEPB 05-20 05:03
DX: F10.94 Alcohol use, unspecified with alcohol-induced mood disorder (principal); N61.1 Abscess of the breast and nipple; B95.61 Methicillin susceptible Staphylococcus aureus infection as the cause of diseases classified elsewhere; F17.200 Nicotine dependence, unspecified, uncomplicated; Z79.899 Other long term (current) drug therapy; Z86.59 Personal history of other mental and behavioral disorders; Z86.79 Personal history of other diseases of the circulatory system; Z87.09 Personal history of other diseases of the respiratory system; Z86.69 Personal history of other diseases of the nervous system and sense organs
CPT/HCPCS: 10061; 80053; 80307; 85025; 86403; 87070; 87186; 87205

== ENCOUNTER 2017-05-29 22:15 | Emergency (ER) | payer SELFPAY ==
[~2017-05-29] VITALS: Ht 177.8 cm; Wt 85.0 kg
[~2017-05-29 22:15] MED LIST changes: -BACT800T5 PO; -CEPH-460 PO; -ERYTOIN10 LEFT EYE; +LEXA10TA PO; +REME30TA PO; +VIST50CA PO
[2017-05-29 22:32] VITALS: BP 131/72; PULSE 83; RESP 16; TEMP 98.3; O2SAT 98
[2017-05-29 23:05] VITALS: BP 145/98; PULSE 116; RESP 19; TEMP 98; O2SAT 100
[2017-05-29 23:28] LABS: AUTOMATED NEUTROPHIL # 5.4 TH/MM3 (1.8-7.7); BASOPHIL # 0.1 TH/MM3 (0-0.2); BASOPHIL % 1.2 % (0.0-2.0); EOSINOPHIL # 0.4 TH/MM3 (0-0.4); EOSINOPHIL % 3.8 % (0.0-4.0); HEMATOCRIT 41.9 % (39.0-51.0); HEMO FLAGS DIFF FINAL; LYMPH % 34.7 % (9.0-44.0); LYMPHOCYTE # 3.4 TH/MM3 (1.0-4.8); MEAN CELL VOLUME 96.4 FL (80.0-100.0); MEAN CORPUSCULAR HEMOGLOBIN 34.1 PG (27.0-34.0); MEAN CORPUSCULAR HGB CONC 35.3 % (32.0-36.0); MONO % 5.4 % (0.0-8.0); NEUT % 54.9 % (16.0-70.0); PLATELET COUNT 209 TH/MM3 (150-450); RED BLOOD COUNT 4.34 MIL/MM3 (4.50-5.90); RED CELL DISTRIBUTION WIDTH 15.9 % (11.6-17.2); WHITE BLOOD COUNT 9.8 TH/MM3 (4.0-11.0)
[2017-05-29 23:41] LABS: ALT (GPT) 19 U/L (12-78); ANION GAP 10 MEQ/L (5-15); AST (GOT) 11 U/L (15-37); BICARBONATE 25.1 MEQ/L (21.0-32.0); BLOOD UREA NITROGEN 8 MG/DL (7-18); CHLORIDE 110 MEQ/L (98-107); GLOMERULAR FILTRATION RATE 98 ML/MIN (>89); POTASSIUM 3.4 MEQ/L (3.5-5.1); SODIUM (NA) 145 MEQ/L (136-145)
[2017-05-29 23:44] LABS: ACETAMINOPHEN LESS THAN 2.0 MCG/ML (10.0-30.0); ALCOHOL 187 MG/DL (0-5); ALKALINE PHOSPHATASE 109 U/L (45-117); TOTAL BILIRUBIN ADULT 0.3 MG/DL (0.2-1.0)
--- NOTE | 2017-05-30 00:02 | PD ---
HPI Chief Complaint: Psychiatric Symptoms Time Seen by Provider: 23:02 Travel History International Travel<30 days: No Contact w/Intl Traveler<30days: No Traveled to known affect area: No History of Present Illness HPI 46-year-old male brought in by PD under [place] act. According to the [place] act the patient made statements of wanting to end his life and stated he can't take it anymore and just wishes to . Patient has been seen here in the emergency department several times in the past for alcohol intoxication and suicidal statements. He tells me he no longer wants to live. Pain planes of generalized weakness. No other medical complaints. He admits to drinking some alcohol today. No illicit drug use. 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) Social History Alcohol Use: Yes (RARE) Tobacco Use: Yes (1/2 PPD) Substance Use: Yes Allergies-Medications (Allergen,Severity, Reaction): Coded Allergies: paroxetine (Unverified Adverse Reaction, Intermediate, Confusion, 05/02/17) Reported Meds & Prescriptions Reported Meds & Active Scripts Active Reported Vistaril (Hydroxyzine Pamoate) 50 Mg Cap 50 Mg PO BID Remeron (Mirtazapine) 30 Mg Tab 30 Mg PO HS Lexapro (Escitalopram Oxalate) 10 Mg Tab 10 Mg PO DAILY Review of Systems Except as stated in HPI: all other systems reviewed are Neg Physical Exam Narrative GENERAL: Well-developed, well-nourished, comfortable, no apparent distress. SKIN: Focused skin assessment warm/dry. No rash. HEAD: Atraumatic. Normocephalic. EYES: Pupils equal and round. No scleral icterus. No injection or drainage. ENT: No nasal bleeding or discharge. Mucous membranes pink and moist. NECK: Trachea midline. No JVD. CARDIOVASCULAR: Regular rate and rhythm. No murmur appreciated. RESPIRATORY: No accessory muscle use. Clear to auscultation. Breath sounds equal bilaterally. GASTROINTESTINAL: Abdomen soft, non-tender, nondistended. MUSCULOSKELETAL: No obvious deformities. No clubbing. No cyanosis. No edema. NEUROLOGICAL: Awake and alert. No obvious cranial nerve deficits. Motor grossly within normal limits. Normal speech. PSYCHIATRIC: Flat affect. Poor eye contact. Data Data Last Documented VS Vital Signs Date Time Temp Pulse Resp B/P (MAP) Pulse Ox O2 Delivery O2 Flow Rate FiO2 05/29/17 23:05 98.0 116 19 145/98 (114) 100 Room Air Orders Orders Complete Blood Count With Diff (05/29/17 23:02) Comprehensive Metabolic Panel (05/29/17 23:) Psych Screen (05/29/17 23:) Drug Screen, Random Urine (05/29/17 23:02) Alcohol (Ethanol) (05/29/17 23:02) Salicylates (Aspirin) (05/29/17 23:02) Tylenol (Acetaminophen) (05/29/17:) Labs Laboratory Tests Test 05/29/17 23:00 05/29/17 23:10 Urine Opiates Screen NEG Urine Barbiturates Screen NEG Urine Amphetamines Screen NEG Urine Benzodiazepines Screen NEG Urine Cocaine Screen NEG Urine Cannabinoids Screen NEG White Blood Count 9.8 TH/MM3 Red Blood Count 4.34 MIL/MM3 Hemoglobin 14.8 GM/DL Hematocrit 41.9 % Mean Corpuscular Volume 96.4 FL Mean Corpuscular Hemoglobin 34.1 PG Mean Corpuscular Hemoglobin Concent 35.3 % Red Cell Distribution Width 15.9 % Platelet Count 209 TH/MM3 Mean Platelet Volume 8.1 FL Neutrophils (%) (Auto) 54.9 % Lymphocytes (%) (Auto) 34.7 % Monocytes (%) (Auto) 5.4 % Eosinophils (%) (Auto) 3.8 % Basophils (%) (Auto) 1.2 % Neutrophils # (Auto) 5.4 TH/MM3 Lymphocytes # (Auto) 3.4 TH/MM3 Monocytes # (Auto) 0.5 TH/MM3 Eosinophils # (Auto) 0.4 TH/MM3 Basophils # (Auto) 0.1 TH/MM3 CBC Comment DIFF FINAL Differential Comment Blood Urea Nitrogen 8 MG/DL Creatinine 0.84 MG/DL Random Glucose 99 MG/DL Total Protein 6.1 GM/DL Albumin 3.2 GM/DL Calcium Level 8.0 MG/DL Alkaline Phosphatase 109 U/L Aspartate Amino Transf (AST/SGOT) 11 U/L Alanine Aminotransferase (ALT/SGPT) 19 U/L Total Bilirubin 0.3 MG/DL Sodium Level 145 MEQ/L Potassium Level 3.4 MEQ/L Chloride Level 110 MEQ/L Carbon Dioxide Level 25.1 MEQ/L Anion Gap 10 MEQ/L Estimat Glomerular Filtration Rate 98 ML/MIN Salicylates Level 2.9 MG/DL Acetaminophen Level LESS THAN 2.0 MCG/ML Ethyl Alcohol Level 187 MG/DL [facility] Medical Decision Making Medical Screen Exam Complete: Yes Emergency Medical Condition: Yes Medical Record Reviewed: Yes Differential Diagnosis Suicidal ideation. Alcohol intoxication Narrative Course Vital signs show heart rate 83, blood pressure 131/72, pulse ox 98% on room air , oral temp of 98.3F. CBC is unremarkable. CMP is essentially unremarkable. Tylenol and salicylate levels are negative. Urine drug screen is negative for all drugs tested. Alcohol level is 187. The patient is medically cleared for psychiatric evaluation and disposition by them. Diagnosis Primary Impression: Alcohol-induced mood disorder Additional Impression: Suicidal ideations Maurice Brambila MD May 30, 2017 00:02
[2017-05-30 07:18] VITALS: BP 163/98; PULSE 75; RESP 17; TEMP 98.2; O2SAT 96
--- NOTE | 2017-05-30 12:53 | PD ---
Data Data Last Documented VS Vital Signs Date Time Temp Pulse Resp B/P (MAP) Pulse Ox O2 Delivery O2 Flow Rate FiO2 05/30/17 07:18 98.2 75 17 163/98 (119) 96 Room Air Orders Orders Complete Blood Count With Diff (05/29/17 23:02) Comprehensive Metabolic Panel (05/29/17 23:02) Psych Screen (05/29/17 23:02) Drug Screen, Random Urine (05/29/17 23:02) Alcohol (Ethanol) (05/29/17 23:02) Salicylates (Aspirin) (05/29/17 23:02) Tylenol (Acetaminophen) (05/29/17 23:02) Diet Regular Basic (05/30/17 Breakfast) Labs Laboratory Tests Test 05/29/17 23:00 05/29/17 23:10 Urine Opiates Screen NEG Urine Barbiturates Screen NEG Urine Amphetamines Screen NEG Urine Benzodiazepines Screen NEG Urine Cocaine Screen NEG Urine Cannabinoids Screen NEG White Blood Count 9.8 TH/MM3 Red Blood Count 4.34 MIL/MM3 Hemoglobin 14.8 GM/DL Hematocrit 41.9 % Mean Corpuscular Volume 96.4 FL Mean Corpuscular Hemoglobin 34.1 PG Mean Corpuscular Hemoglobin Concent 35.3 % Red Cell Distribution Width 15.9 % Platelet Count 209 TH/MM3 Mean Platelet Volume 8.1 FL Neutrophils (%) (Auto) 54.9 % Lymphocytes (%) (Auto) 34.7 % Monocytes (%) (Auto) 5.4 % Eosinophils (%) (Auto) 3.8 % Basophils (%) (Auto) 1.2 % Neutrophils # (Auto) 5.4 TH/MM3 Lymphocytes # (Auto) 3.4 TH/MM3 Monocytes # (Auto) 0.5 TH/MM3 Eosinophils # (Auto) 0.4 TH/MM3 Basophils # (Auto) 0.1 TH/MM3 CBC Comment DIFF FINAL Differential Comment Blood Urea Nitrogen 8 MG/DL Creatinine 0.84 MG/DL Random Glucose 99 MG/DL Total Protein 6.1 GM/DL Albumin 3.2 GM/DL Calcium Level 8.0 MG/DL Alkaline Phosphatase 109 U/L Aspartate Amino Transf (AST/SGOT) 11 U/L Alanine Aminotransferase (ALT/SGPT) 19 U/L Total Bilirubin 0.3 MG/DL Sodium Level 145 MEQ/L Potassium Level 3.4 MEQ/L Chloride Level 110 MEQ/L Carbon Dioxide Level 25.1 MEQ/L Anion Gap 10 MEQ/L Estimat Glomerular Filtration Rate 98 ML/MIN Salicylates Level 2.9 MG/DL Acetaminophen Level LESS THAN 2.0 MCG/ML Ethyl Alcohol Level 187 MG/DL MDM Supervised Visit with JULIO: Yes Narrative Course Medical decision making On my repeat assessment patient states he would like to leave. States he got drunk last night" and some stupid things". This evening multiple times for occult-related complaints in the past. He's states that he needs to be a work by 3 PM. He looks well. In my experience judgment and training, he is low risk for self-harm. Diagnosis Primary Impression: Alcohol-induced mood disorder Additional Impression: Suicidal ideations Med/Other Pt SpecificInfo: No Change to Meds Disposition: 01 DISCHARGE HOME Condition: Stable Jaron Hall MD May 30, 2017 12:53
== END 2017-05-30 13:17 | disposition home or self-care (01) ==
LOC: NEDAMB 22:15 → NEPD 05-30 13:17
DX: F10.94 Alcohol use, unspecified with alcohol-induced mood disorder (principal); F17.200 Nicotine dependence, unspecified, uncomplicated; F32.9 Major depressive disorder, single episode, unspecified; F41.9 Anxiety disorder, unspecified; Y90.6 Blood alcohol level of 120-199 mg/100 ml; Z79.899 Other long term (current) drug therapy
CPT/HCPCS: 80053; 80307; 85025; 99283

== ENCOUNTER 2017-06-05 20:53 | Emergency (ER) | payer OTHER ==
[2017-06-05 21:02] VITALS: BP 113/70; PULSE 99; RESP 22; TEMP 98; O2SAT 98
--- NOTE | 2017-06-05 21:44 | PD ---
HPI Chief Complaint: Alcohol/Drug Intoxication Time Seen by Provider: 21:21 Travel History International Travel<30 days: No Contact w/Intl Traveler<30days: No Traveled to known affect area: No History of Present Illness HPI 46-year-old male presents to the emergency Department under act by police for alcohol intoxication. The patient was apparently a [facility] and was threatening staff in the waiting room and spitting on people. The police were called and placed the patient under act and brought him to the emergency department. The patient states that he was drinking half a pint of vodka today. The patient states that his friend took him to [facility] due to his drinking. The patient reports history of "liver pain". The patient is obviously intoxicated at this time. He is answering my questions appropriately and is being polite on my exam. 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) Social History Alcohol Use: Yes (RARE) Tobacco Use: Yes (/ PPD) Substance Use: Yes Allergies-Medications (Allergen,Severity, Reaction): Coded Allergies: paroxetine (Unverified Adverse Reaction, Intermediate, Confusion, 06/05/17 ) Reported Meds & Prescriptions Reported Meds & Active Scripts Active Reported Vistaril (Hydroxyzine Pamoate) 50 Mg Cap 50 Mg PO BID Remeron (Mirtazapine) 30 Mg Tab 30 Mg PO HS Lexapro (Escitalopram Oxalate) 10 Mg Tab 10 Mg PO DAILY Review of Systems Except as stated in HPI: all other systems reviewed are Neg Physical Exam Narrative GENERAL: Well-nourished, well-developed male patient, afebrile. SKIN: Focused skin assessment warm/dry. HEAD: Normocephalic. Atraumatic. EYES: No scleral icterus. No injection or drainage. NECK: Supple, trachea midline. No JVD or lymphadenopathy. CARDIOVASCULAR: Regular rate and rhythm without murmurs, gallops, or rubs. RESPIRATORY: Breath sounds equal bilaterally. No accessory muscle use. Lungs sounds are clear to auscultation. GASTROINTESTINAL: Abdomen soft, non-tender, nondistended. MUSCULOSKELETAL: No cyanosis, or edema. BACK: Nontender without obvious deformity. No CVA tenderness. Data Data Last Documented VS Vital Signs Date Time Temp Pulse Resp B/P (MAP) Pulse Ox O2 Delivery O2 Flow Rate FiO2 06/05/17 21:02 98.0 99 22 113/70 (84) 98 Orders Orders Lorazepam Inj (Ativan Inj) (06/05/17 22:45) Restraints Violent (06/05/17 21:22) Restraints Non-Violent CYNTHIA.Q3H (06/05/17 23:21) Ed Discharge Order (06/06/17 05:25) MDM Medical Decision Making Medical Screen Exam Complete: Yes Emergency Medical Condition: Yes Medical Record Reviewed: Yes Differential Diagnosis alcohol intoxication versus alcohol abuse versus medical clearance Narrative Course 46-year-old male presents to the emergency department under [facility] act for alcohol intoxication. Patient was here recently on May 29, 2017. I reviewed those labs. CBC showed no acute abnormality. CMP showed no acute abnormality. Patient will be allowed to rest in the emergency Department until clinically sober. Patient was placed in restraints. He is screaming and threatening staff. Although he states that he has not been spitting, he has saliva on the bed and on his chin. The patient is persistently screaming "fuck". Patient is given Ativan 1 mg IM. Patient will be monitored in the emergency department until clinically sober and appropriate for discharge. Diagnosis Primary Impression: Alcohol dependence with intoxication Qualified Codes: F10.220 - Alcohol dependence with intoxication, uncomplicated Referrals: [facility] Patient Instructions: Alcohol Intoxication (ED), General Instructions Additional Instructions: Follow up at [facility]. Return to the emergency department for any acute, worsening of symptoms. Med/Other Pt SpecificInfo: No Change to Meds Disposition: 01 DISCHARGE HOME Condition: Stable Ronald Molinarosalba PAREKH Jun 05, 2017 21:44
[2017-06-05] MEDS ORDERED: LORazepam 2 MG/ML VIAL IM ONE (22:45)
--- NOTE | 2017-06-06 05:30 | PD ---
Physical Exam Date Seen by Provider: Jun 06, 2017 Time Seen by Provider: 05:29 Data Data Last Documented VS Vital Signs Date Time Temp Pulse Resp B/P (MAP) Pulse Ox O2 Delivery O2 Flow Rate FiO2 06/05/17 21:02 98.0 99 22 113/70 (84) 98 Orders Orders Lorazepam Inj (Ativan Inj) (06/05/17 22:45) Restraints Violent (06/05/17 21:22) Restraints Non-Violent CYNTHIA.Q3H (06/05/17 23:21) Ed Discharge Order (06/06/17 05:25) [facility] Medical Record Reviewed: Yes Supervised Visit with JULIO: Yes Differential Diagnosis Differential diagnoses: Alcohol intoxication, substance abuse, electrolyte abnormality, malingering Narrative Course The patient has sufficiently sobered appear in the ER. He is up and ambulatory with a steady gait. He appears to be appropriate and medically stable for discharge Diagnosis Primary Impression: Alcohol dependence with intoxication Qualified Codes: F10.220 - Alcohol dependence with intoxication, uncomplicated Referrals: [facility] Patient Instructions: General Instructions, Alcohol Intoxication (ED) Additional Instruction: Follow up at [facility]. Return to the emergency department for any acute, worsening of symptoms. Med/Other Pt SpecificInfo: No Meds Exist/No RX given Disposition: 01 DISCHARGE HOME Condition: Stable Tramaine Sagastume Jun 06, 2017 05:30
== END 2017-06-06 05:35 | disposition home or self-care (01) ==
LOC: NEDAMB 20:53 → NEPD 06-06 05:35
DX: F10.220 Alcohol dependence with intoxication, uncomplicated (principal)
CPT/HCPCS: 96372; 99285; J2060

== ENCOUNTER 2017-06-08 16:47 | Emergency (ER) | payer OTHER ==
[~2017-06-08] VITALS: Ht 172.7 cm; Wt 72.5 kg
[2017-06-08 17:00] VITALS: BP 118/72; PULSE 95; RESP 14; TEMP 98.5; O2SAT 95
[2017-06-08 18:27] LABS: AUTOMATED NEUTROPHIL # 4.9 TH/MM3 (1.8-7.7); BASOPHIL # 0.1 TH/MM3 (0-0.2); BASOPHIL % 0.8 % (0.0-2.0); EOSINOPHIL # 0.3 TH/MM3 (0-0.4); EOSINOPHIL % 3.4 % (0.0-4.0); HEMATOCRIT 46.8 % (39.0-51.0); HEMO FLAGS DIFF FINAL; LYMPH % 39.7 % (9.0-44.0); LYMPHOCYTE # 3.7 TH/MM3 (1.0-4.8); MEAN CELL VOLUME 96.6 FL (80.0-100.0); MEAN CORPUSCULAR HGB CONC 34.2 % (32.0-36.0); MONO % 4.7 % (0.0-8.0); NEUT % 51.4 % (16.0-70.0); PLATELET COUNT 199 TH/MM3 (150-450); RED BLOOD COUNT 4.84 MIL/MM3 (4.50-5.90); RED CELL DISTRIBUTION WIDTH 15.8 % (11.6-17.2); WHITE BLOOD COUNT 9.4 TH/MM3 (4.0-11.0)
[2017-06-08 19:03] LABS: ALT (GPT) 20 U/L (12-78)
[2017-06-08 19:06] LABS: ALKALINE PHOSPHATASE 87 U/L (45-117); TOTAL BILIRUBIN ADULT 0.5 MG/DL (0.2-1.0)
[2017-06-08 19:08] LABS: ANION GAP 7 MEQ/L (5-15); AST (GOT) 23 U/L (15-37); BICARBONATE 24.7 MEQ/L (21.0-32.0); BLOOD UREA NITROGEN 7 MG/DL (7-18); CHLORIDE 109 MEQ/L (98-107); GLOMERULAR FILTRATION RATE 134 ML/MIN (>89); POTASSIUM 4.1 MEQ/L (3.5-5.1); SODIUM (NA) 141 MEQ/L (136-145)
--- NOTE | 2017-06-08 20:04 | PD ---
HPI Chief Complaint: Psychiatric Symptoms Time Seen by Provider: 19:25 Travel History International Travel<30 days: No Contact w/Intl Traveler<30days: No Traveled to known affect area: No History of Present Illness HPI 46-year-old white male presents to emergency department under [place] act by PD. This is a patient well-known to the ER staff and myself for multiple admissions due to alcohol abuse. The patient states that he had fallen off the wagon and has been drinking alcohol again. He had contacted police and notified him that he was feeling depressed and he made a statement that he was going to kill himself by overdosing. The patient states that he is not truly suicidal but would rather get into detox. He denies any homicidal ideation. He denies a toxic ingestions. He denies any medical complaints. 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) Social History Alcohol Use: Yes (DAILY) Tobacco Use: Yes (08/28 PPD) Substance Use: No Allergies-Medications (Allergen,Severity, Reaction): Coded Allergies: paroxetine (Unverified Adverse Reaction, Intermediate, Confusion, 06/08/17 ) Reported Meds & Prescriptions Reported Meds & Active Scripts Active No Active Prescriptions or Reported Medications Review of Systems Except as stated in HPI: all other systems reviewed are Neg Psychiatric: Positive: Depression, Mood Disorder, Substance Abuse, No: Anxiety , Suicidal Ideations, Disorder of Thought, Homicidal Ideation Physical Exam Narrative GENERAL: Well-nourished, well-developed patient. SKIN: Warm and dry. HEAD: Normocephalic and atraumatic. EYES: No scleral icterus. No injection or drainage. ENT: No nasal drainage noted. Mucous membranes pink. Airway patent. NECK: Supple, trachea midline. Moves head freely without obvious discomfort. CARDIOVASCULAR: Regular rate and rhythm without murmurs, gallops, or rubs. RESPIRATORY: Breath sounds equal bilaterally. No accessory muscle use. GASTROINTESTINAL: Abdomen soft, non-tender, nondistended. EXTREMITIES: No cyanosis or edema. BACK: Nontender without obvious deformity. No CVA tenderness. NEURO: Patient is alert and oriented. no sensorimotor deficits. Nonfocal. Normal speech. PSYCH: No delusions. No auditory or visual hallucinations. Data Data Last Documented VS Vital Signs Date Time Temp Pulse Resp B/P (MAP) Pulse Ox O2 Delivery O2 Flow Rate FiO2 06/08/17 17:00 98.5 95 14 118/72 (87) 95 Orders Orders Complete Blood Count With Diff (06/08/17 17:58) Comprehensive Metabolic Panel (06/08/17 17:58) Haloperidol Inj (Haldol Inj) (06/08/17 20:15) Lorazepam Inj (Ativan Inj) (06/08/17 20:15) Ed Discharge Order (06/08/17 20:18) Labs Laboratory Tests Test 06/08/17 18:08 White Blood Count 9.4 TH/MM3 Red Blood Count 4.84 MIL/MM3 Hemoglobin 16.0 GM/DL Hematocrit 46.8 % Mean Corpuscular Volume 96.6 FL Mean Corpuscular Hemoglobin 33.0 PG Mean Corpuscular Hemoglobin Concent 34.2 % Red Cell Distribution Width 15.8 % Platelet Count 199 TH/MM3 Mean Platelet Volume 8.3 FL Neutrophils (%) (Auto) 51.4 % Lymphocytes (%) (Auto) 39.7 % Monocytes (%) (Auto) 4.7 % Eosinophils (%) (Auto) 3.4 % Basophils (%) (Auto) 0.8 % Neutrophils # (Auto) 4.9 TH/MM3 Lymphocytes # (Auto) 3.7 TH/MM3 Monocytes # (Auto) 0.4 TH/MM3 Eosinophils # (Auto) 0.3 TH/MM3 Basophils # (Auto) 0.1 TH/MM3 CBC Comment DIFF FINAL Differential Comment Blood Urea Nitrogen 7 MG/DL Creatinine 0.64 MG/DL Random Glucose 87 MG/DL Total Protein 6.4 GM/DL Albumin 3.4 GM/DL Calcium Level 8.6 MG/DL Alkaline Phosphatase 87 U/L Aspartate Amino Transf (AST/SGOT) 23 U/L Alanine Aminotransferase (ALT/SGPT) 20 U/L Total Bilirubin 0.5 MG/DL Sodium Level 141 MEQ/L Potassium Level 4.1 MEQ/L Chloride Level 109 MEQ/L Carbon Dioxide Level 24.7 MEQ/L Anion Gap 7 MEQ/L Estimat Glomerular Filtration Rate 134 ML/MIN MDM Medical Decision Making Medical Screen Exam Complete: Yes Emergency Medical Condition: Yes Medical Record Reviewed: Yes Interpretation(s) CBC & BMP Diagram 06/08/17 18:08 Total Protein 6.4, Albumin 3.4, Calcium Level 8.6, Alkaline Phosphatase 87, Aspartate Amino Transf (AST/SGOT) 23, Alanine Aminotransferase (ALT/SGPT) 20, Total Bilirubin 0.5 Differential Diagnosis MDM: High Differential diagnoses: Schizophrenia, schizoaffective disorder, bipolar, anxiety, depression, adjustment reaction, mood disorder NOS, ODD, depressive disorder NOS, dementia, dementia with agitation, psychosis NOS, substance induced mood disorder, intermittent explosive disorder, Asperger syndrome, infection,electrolyte abnormality, malingering. Narrative Course Mental health screening discussed with the patient. Psychiatric screen ordered. The patient has been medically cleared. The patient here in the ER has been escalated his agitation and aggressiveness. He has become threatening to the staff. He is using profanity. He has thrown a glass of water at the staff. The patient punched the wall and slam the door. Security has been called and are assisting The patient is not acutely suicidal or homicidal. The patient is a chronic alcoholic. The patient's [place] act has been lifted. He has declined to stay and talk with a psych screener. The patient signs out AGAINST MEDICAL ADVICE. The patient has been trespassed. [place] police have been made aware. This is alcohol induced mood disorder Diagnosis Primary Impression: Alcohol-induced mood disorder Patient Instructions: General Instructions Additional Instructions: Rest. Increase fluids. Avoid alcohol. Avoid illegal substances. Follow-up with [facility] for detox. Do not operate a car or any heavy machinery under the influence of alcohol or drugs. Follow-up with a medical doctor this week. Return to the ER for emergencies Scripts No Active Prescriptions or Reported Meds Disposition: 07 AGAINST MEDICAL ADVICE Condition: Stable Tramaine Sagastume Jun 08, 2017 20:04
[2017-06-08] MEDS ORDERED: HALOPERIDOL LACTATE 5 MG/ML AMP IM ONE (20:15)
[2017-06-08] MEDS ORDERED: LORazepam 2 MG/ML VIAL IM ONE (20:15)
== END 2017-06-08 20:48 | disposition left against medical advice (07) ==
LOC: NEDAMB 16:47 → NEPD 20:48
DX: F10.14 Alcohol abuse with alcohol-induced mood disorder (principal); F41.9 Anxiety disorder, unspecified; F32.9 Major depressive disorder, single episode, unspecified; J44.9 Chronic obstructive pulmonary disease, unspecified; F17.200 Nicotine dependence, unspecified, uncomplicated
CPT/HCPCS: 80053; 85025; 99281

== ENCOUNTER 2017-06-13 15:36 | Emergency (ER) | payer SELFPAY ==
[~2017-06-13] VITALS: Ht 172.7 cm; Wt 75.0 kg
[2017-06-13 15:55] VITALS: BP 113/61; PULSE 100; RESP 20; TEMP 98.8; O2SAT 96
== END 2017-06-13 17:00 | disposition left against medical advice (07) ==
LOC: NED 15:36
DX: F10.239 Alcohol dependence with withdrawal, unspecified (principal); R45.851 Suicidal ideations; Z53.21 Procedure and treatment not carried out due to patient leaving prior to being seen by health care provider
CPT/HCPCS: 99281

== ENCOUNTER 2017-06-13 18:46 | Emergency (ER) | payer SELFPAY ==
[~2017-06-13] VITALS: Ht 172.7 cm; Wt 68.0 kg
[2017-06-13 18:53] VITALS: BP 102/68; PULSE 116; RESP 20; TEMP 98.4; O2SAT 95
== END 2017-06-13 21:30 | disposition left against medical advice (07) ==
LOC: NED 18:46
DX: M54.9 Dorsalgia, unspecified (principal); Z53.21 Procedure and treatment not carried out due to patient leaving prior to being seen by health care provider
CPT/HCPCS: 99281

== ENCOUNTER 2017-06-14 14:09 | Emergency (ER) | payer OTHER ==
[2017-06-14 14:26] VITALS: BP 109/71; PULSE 110; RESP 16; TEMP 98.6; O2SAT 97
--- NOTE | 2017-06-14 15:47 | PD ---
HPI Chief Complaint: Medical Clearance Time Seen by Provider: 15:38 Travel History International Travel<30 days: No Contact w/Intl Traveler<30days: No Traveled to known affect area: No History of Present Illness HPI 46 YO M presents to the ED under [place] Act. The patient states "I'm withdrawing from alcohol." He states that he last drank a 1/5 of whiskey and a pint of Mad Dog around 2am. He denies SI or HI. He states that he wants to go to detox. He has no somatic complaints. 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 SKIN: Focused skin assessment warm/dry. HEAD: Normocephalic. EYES: No scleral icterus. No injection or drainage. NECK: Supple, trachea midline. No JVD or lymphadenopathy. CARDIOVASCULAR: Regular rate and rhythm without murmurs, gallops, or rubs. RESPIRATORY: Breath sounds are and equal bilaterally. No accessory muscle use. GASTROINTESTINAL: Abdomen soft, non-tender, nondistended. Active bowel sounds. MUSCULOSKELETAL: No cyanosis, or edema. BACK: Nontender without obvious deformity. No CVA tenderness. Data Data Last Documented VS Vital Signs Date Time Temp Pulse Resp B/P (MAP) Pulse Ox O2 Delivery O2 Flow Rate FiO2 06/14/17 15:48 98 18 06/14/17 15:48 98.5 132/85 (101) Room Air 96 06/14/17 14:26 97 Orders Orders Complete Blood Count With Diff (06/14/17 16:03) Comprehensive Metabolic Panel (06/14/17 16:03) Drug Screen, Random Urine (06/14/17 16:03) Alcohol (Ethanol) (06/14/17 16:03) Ondansetron Odt (Zofran Odt) (06/14/17 20:00) Chlordiazepoxide (Librium) (06/14/17 19:50) Ed Discharge Order (06/14/17 19:54) Labs Laboratory Tests Test 06/14/17 16:15 06/14/17 19:25 White Blood Count 10.8 TH/MM3 Red Blood Count 5.29 MIL/MM3 Hemoglobin 17.3 GM/DL Hematocrit 50.4 % Mean Corpuscular Volume 95.2 FL Mean Corpuscular Hemoglobin 32.7 PG Mean Corpuscular Hemoglobin Concent 34.4 % Red Cell Distribution Width 15.5 % Platelet Count 218 TH/MM3 Mean Platelet Volume 8.7 FL Neutrophils (%) (Auto) 65.3 % Lymphocytes (%) (Auto) 28.2 % Monocytes (%) (Auto) 4.7 % Eosinophils (%) (Auto) 1.4 % Basophils (%) (Auto) 0.4 % Neutrophils # (Auto) 7.1 TH/MM3 Lymphocytes # (Auto) 3.0 TH/MM3 Monocytes # (Auto) 0.5 TH/MM3 Eosinophils # (Auto) 0.2 TH/MM3 Basophils # (Auto) 0.0 TH/MM3 CBC Comment DIFF FINAL Differential Comment Blood Urea Nitrogen 11 MG/DL Creatinine 0.74 MG/DL Random Glucose 98 MG/DL Total Protein 7.5 GM/DL Albumin 4.1 GM/DL Calcium Level 8.7 MG/DL Alkaline Phosphatase 80 U/L Aspartate Amino Transf (AST/SGOT) 35 U/L Alanine Aminotransferase (ALT/SGPT) 34 U/L Total Bilirubin 0.9 MG/DL Sodium Level 139 MEQ/L Potassium Level 4.8 MEQ/L Chloride Level 105 MEQ/L Carbon Dioxide Level 26.6 MEQ/L Anion Gap 7 MEQ/L Estimat Glomerular Filtration Rate 113 ML/MIN Ethyl Alcohol Level 216 MG/DL Urine Opiates Screen NEG Urine Barbiturates Screen NEG Urine Amphetamines Screen NEG Urine Benzodiazepines Screen POS Urine Cocaine Screen NEG Urine Cannabinoids Screen NEG MDM Medical Decision Making Medical Screen Exam Complete: Yes Emergency Medical Condition: Yes Differential Diagnosis Abdomen dependence versus acute alcohol intoxication versus alcohol withdrawal versus malingering versus other Narrative Course 46 YO M presents to the ED under [place] Act. The patient states "I'm withdrawing from alcohol." He states that he last drank a 1/5 of whiskey and a pint of Mad Dog around 2am. He denies SI or HI. He states that he wants to go to detox. He has no somatic complaints. Vitals reviewed. Patient is tachycardic on presentation. Physical exam reveals an intoxicated white male in no acute distress. Review of the patient's record reveals 7 visits in the last 4 weeks with similar complaint. No concerning abnormalities of CBC or CMP. Tox screen positive for benzodiazepines. Alcohol level 216. Patient monitored in the emergency room for a few hours. On recheck he is awake and oriented, demonstrates a normal gait and has clear speech. He is administered Zofran and Librium by mouth. He is stable and discharged for outpatient treatment with [facility]. Diagnosis Primary Impression: Alcohol dependence Qualified Codes: F10.220 - Alcohol dependence with intoxication, uncomplicated Referrals: [facility] (Out patient) Patient Instructions: Alcohol Dependence (ED), General Instructions Additional Instructions: Follow-up with [facility] as planned. Return to the ED for any urgent or emergent medical condition. Scripts No Active Prescriptions or Reported Meds Disposition: 01 DISCHARGE HOME Condition: Stable Rosalia Ron Jun 14, 2017 15:47
[2017-06-14 15:48] VITALS: BP 132/85; PULSE 98; RESP 18; TEMP 98.5
[2017-06-14 16:58] LABS: AUTOMATED NEUTROPHIL # 7.1 TH/MM3 (1.8-7.7); BASOPHIL % 0.4 % (0.0-2.0); EOSINOPHIL # 0.2 TH/MM3 (0-0.4); EOSINOPHIL % 1.4 % (0.0-4.0); HEMATOCRIT 50.4 % (39.0-51.0); HEMO FLAGS DIFF FINAL; LYMPH % 28.2 % (9.0-44.0); MEAN CELL VOLUME 95.2 FL (80.0-100.0); MEAN CORPUSCULAR HEMOGLOBIN 32.7 PG (27.0-34.0); MEAN CORPUSCULAR HGB CONC 34.4 % (32.0-36.0); MONO % 4.7 % (0.0-8.0); NEUT % 65.3 % (16.0-70.0); PLATELET COUNT 218 TH/MM3 (150-450); RED BLOOD COUNT 5.29 MIL/MM3 (4.50-5.90); RED CELL DISTRIBUTION WIDTH 15.5 % (11.6-17.2); WHITE BLOOD COUNT 10.8 TH/MM3 (4.0-11.0)
[2017-06-14 17:25] LABS: ALT (GPT) 34 U/L (12-78)
[2017-06-14 17:26] LABS: ALKALINE PHOSPHATASE 80 U/L (45-117); TOTAL BILIRUBIN ADULT 0.9 MG/DL (0.2-1.0)
[2017-06-14 17:27] LABS: ANION GAP 7 MEQ/L (5-15); AST (GOT) 35 U/L (15-37); BICARBONATE 26.6 MEQ/L (21.0-32.0); BLOOD UREA NITROGEN 11 MG/DL (7-18); CHLORIDE 105 MEQ/L (98-107); GLOMERULAR FILTRATION RATE 113 ML/MIN (>89); SODIUM (NA) 139 MEQ/L (136-145)
[2017-06-14 17:35] LABS: ALCOHOL 216 MG/DL (0-5); POTASSIUM 4.8 MEQ/L (3.5-5.1)
[2017-06-14] MEDS ORDERED: chlordiazePOXIDE 25 MG CAP PO ONE (19:50)
[2017-06-14] MEDS ORDERED: ONDANSETRON ODT 4 MG TAB PO ONE (20:00)
== END 2017-06-14 20:12 | disposition home or self-care (01) ==
LOC: NEPD 14:09
DX: F10.220 Alcohol dependence with intoxication, uncomplicated (principal); R00.2 Palpitations; J44.9 Chronic obstructive pulmonary disease, unspecified; Z72.0 Tobacco use
CPT/HCPCS: 80053; 80307; 85025; 99283

== ENCOUNTER 2017-06-19 15:04 | Emergency (ER) | payer SELFPAY ==
[2017-06-19 15:06] VITALS: BP 141/98; PULSE 107; RESP 16; TEMP 98.2; O2SAT 98
--- NOTE | 2017-06-19 15:34 | PD ---
Physical Exam Date Seen by Provider: Jun 19, 2017 Time Seen by Provider: 15:31 Narrative 46-year-old male coming in with alcohol withdrawal. Patient states generalized bodyaches shakes. Patient has had seizures in the past. Patient states he had a seizure 2 days ago. Patient states he has a bed open at [facility] tomorrow morning. Patient also required at [facility]. Pain is currently 7 out of 10. Patient denies suicidal or homicidal ideation. He is allergic to Paxil. Data Data Last Documented VS Vital Signs Date Time Temp Pulse Resp B/P (MAP) Pulse Ox O2 Delivery O2 Flow Rate FiO2 06/19/17 15:06 98.2 107 16 141/98 (112) 98 MDM Medical Record Reviewed: Yes Supervised Visit with JULIO: Yes Narrative Course Vital signs currently stable. Patient is awaiting bed placement. Scripts No Active Prescriptions or Reported Meds Condition: Stable Sreedhar Galicia Jun 19, 2017 15:34
[2017-06-19] MEDS ORDERED: CHLO10CA5 PO (20:30)
--- NOTE | 2017-06-19 20:31 | PD ---
HPI Chief Complaint: Medical Clearance Time Seen by Provider: 19:56 Travel History International Travel<30 days: No Contact w/Intl Traveler<30days: No Traveled to known affect area: No History of Present Illness HPI Patient is a 46-year-old male who presents to emergency room with complaints of alcohol withdrawal. Reports that he came to the ER from [facility] but was put in the wrong unit (psychiatric unit) instead of the detox unit. Reports that he was going through alcohol withdrawal and was told to come to the ER for treatment. Patient denies si/hi. Request something to help with his alcohol withdrawal and also request a bed to sleep in tonight and transportation to [facility] in the morning as they should have detox bed open by the morning. 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) Social History Alcohol Use: Yes (DAILY) Tobacco Use: Yes (2 PPD) Substance Use: No Allergies-Medications (Allergen,Severity, Reaction): Coded Allergies: paroxetine (Unverified Adverse Reaction, Intermediate, Confusion, 06/13/17 ) Reported Meds & Prescriptions Reported Meds & Active Scripts Active No Active Prescriptions or Reported Medications Review of Systems General / Constitutional: No: Fever Eyes: No: Visual changes HENT: No: Headaches Cardiovascular: No: Chest Pain or Discomfort Respiratory: No: Shortness of Breath Gastrointestinal: No: Abdominal Pain Genitourinary: No: Dysuria Musculoskeletal: No: Pain Skin: No Rash Neurologic: No: Weakness Psychiatric: Positive: Substance Abuse, No: Depression Endocrine: No: Polydipsia Hematologic/Lymphatic: No: Easy Bruising Physical Exam Narrative GENERAL: NAD, nontoxic SKIN: Focused skin assessment warm/dry. HEAD: Atraumatic. Normocephalic. EYES: Pupils equal and round. No scleral icterus. No injection or drainage. ENT: No nasal bleeding or discharge. Mucous membranes pink and moist. NECK: Trachea midline. No JVD. CARDIOVASCULAR: Regular rate and rhythm. No murmur appreciated. RESPIRATORY: No accessory muscle use. Clear to auscultation. Breath sounds equal bilaterally. GASTROINTESTINAL: Abdomen soft, non-tender, nondistended. Hepatic and splenic margins not palpable. MUSCULOSKELETAL: No obvious deformities. No clubbing. No cyanosis. No edema. NEUROLOGICAL: Awake and alert. No obvious cranial nerve deficits. Motor grossly within normal limits. Normal speech. PSYCHIATRIC: Appropriate mood and affect; insight and judgment normal. Denies si /hi Data Data Last Documented VS Vital Signs Date Time Temp Pulse Resp B/P (MAP) Pulse Ox O2 Delivery O2 Flow Rate FiO2 06/19/17 15:06 98.2 107 16 141/98 (112) 98 Orders Orders Chlordiazepoxide (Librium) (06/19/17 20:15) [facility] Medical Decision Making Medical Screen Exam Complete: Yes Emergency Medical Condition: Yes Medical Record Reviewed: Yes Interpretation(s) Vital Signs Date Time Temp Pulse Resp B/P (MAP) Pulse Ox O2 Delivery O2 Flow Rate FiO2 06/19/17 15:06 98.2 107 16 141/98 (112) 98 Differential Diagnosis ETOH withdrawl, alcohol dependence Narrative Course 46-year-old male presents to emergency room with complaints of impending alcohol. Patient denies suicidal or homicidal ideations at this time. Will treat with librium. Discussed with patient that I cannot keep him in an ER bed over night and have him brought over to [facility] in the morning. Patient understands this and will get himself to [facility] in the morning. Signs and symptoms of when to return to the ER was reviewed with patient in detail. Patient safe to be discharged with outpatient follow up Diagnosis Primary Impression: Alcohol dependence Qualified Codes: F10.20 - Alcohol dependence, uncomplicated Additional Impression: Alcohol withdrawal [facility] Patient Instructions: General Instructions Additional Instructions: Please follow up with [facility] first thing in the morning. Please follow up with your primary care doctor Return to the ER as needed Please drink responsibly Med/Other Pt SpecificInfo: Prescription(s) given Scripts Chlordiazepoxide HCl (Chlordiazepoxide HCl) 10 Mg Capsule 10 MG PO TID Y for WITHDRAWAL, #10 Prov: Magy Guerin DO 06/19/17 Disposition: 01 DISCHARGE HOME Condition: Stable Magy Guerin DO Jun 19, 2017 20:31
[2017-06-20] MEDS ORDERED: REME30TA PO (03:52)
[2017-06-20] MEDS ORDERED: LEXA10TA PO (03:52)
== END 2017-06-19 20:57 | disposition home or self-care (01) ==
LOC: NEPD 15:04
DX: F10.239 Alcohol dependence with withdrawal, unspecified (principal); F41.9 Anxiety disorder, unspecified; F32.9 Major depressive disorder, single episode, unspecified; J44.9 Chronic obstructive pulmonary disease, unspecified; F17.290 Nicotine dependence, other tobacco product, uncomplicated
CPT/HCPCS: 99283

== ENCOUNTER 2017-06-20 03:22 | Emergency (ER) | payer OTHER ==
[~2017-06-20] VITALS: Ht 167.6 cm; Wt 70.0 kg
[~2017-06-20 03:22] MED LIST changes: +CHLO10CA5 PO; -LEXA10TA PO; -REME30TA PO; -VIST50CA PO
[2017-06-20 03:45] VITALS: BP 137/80; PULSE 105; RESP 18; TEMP 98.9; O2SAT 98
--- NOTE | 2017-06-20 03:49 | PD ---
HPI Chief Complaint: Palencia act Time Seen by Provider: 03:35 Travel History International Travel<30 days: No Contact w/Intl Traveler<30days: No Traveled to known affect area: No History of Present Illness HPI 46-year-old white male presents to emergency department under Palencia act by PD. This is a well-known individual to the ER staff as well as myself for multiple, multiple evaluations due to alcohol. This patient was actually seen earlier this evening. He was given Librium and a prescription and was discharged to follow-up with [facility] for detox. He states that there was not a bed available this evening. He states that he could not wait until the morning to go over to [facility] for inpatient treatment of his substance abuse. He had notified police that he was feeling acutely suicidal and "" he was over it" . The patient states that although he does not use IV drugs he would overdose on heroin. He denies any homicidal ideation. No toxic ingestions. Patient last drank alcohol prior to coming in. 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) Social History Alcohol Use: Yes (DAILY) Tobacco Use: Yes (2 PPD) Substance Use: No Allergies-Medications (Allergen,Severity, Reaction): Coded Allergies: paroxetine (Unverified Adverse Reaction, Intermediate, Confusion, 06/13/17 ) Reported Meds & Prescriptions Reported Meds & Active Scripts Active Chlordiazepoxide HCl 10 Mg Capsule 10 Mg PO TID PRN Review of Systems General / Constitutional: No: Fever Eyes: No: Visual changes HENT: No: Headaches Cardiovascular: No: Chest Pain or Discomfort Respiratory: No: Shortness of Breath Gastrointestinal: No: Abdominal Pain Genitourinary: No: Dysuria Musculoskeletal: No: Pain Skin: No Rash Neurologic: No: Weakness Psychiatric: Positive: Depression, Suicidal Ideations, Mood Disorder, Substance Abuse, No: Anxiety, Disorder of Thought, Homicidal Ideation Endocrine: No: Polydipsia Hematologic/Lymphatic: No: Easy Bruising Physical Exam Narrative GENERAL: Well-nourished, well-developed patient. SKIN: Warm and dry. HEAD: Normocephalic and atraumatic. EYES: No scleral icterus. No injection or drainage. ENT: No nasal drainage noted. Mucous membranes pink. Airway patent. NECK: Supple, trachea midline. Moves head freely without obvious discomfort. CARDIOVASCULAR: Regular rate and rhythm without murmurs, gallops, or rubs. RESPIRATORY: Breath sounds equal bilaterally. No accessory muscle use. GASTROINTESTINAL: Abdomen soft, non-tender, nondistended. EXTREMITIES: No cyanosis or edema. BACK: Nontender without obvious deformity. No CVA tenderness. NEURO: Patient is alert and oriented. no sensorimotor deficits. Nonfocal. Normal speech. PSYCH: No delusions. No auditory or visual hallucinations. Data Data Orders Orders Psych Screen (06/20/17 03:39) MDM Medical Decision Making Medical Screen Exam Complete: Yes Emergency Medical Condition: Yes Medical Record Reviewed: Yes Differential Diagnosis Differential diagnoses: Alcohol intoxication, substance abuse, electrolyte abnormality, malingering Narrative Course The patient was just seen earlier this evening and was given Librium and discharged to follow-up with [facility]. The patient opted to notify police that he was suicidal and hopes to get in to [facility] sooner. According to the prior no the patient was to follow-up in the morning. Patient states that he will overdose on heroin although he does not use IV drugs. I do not believe any laboratory testing is indicated this time. Patient will be seen by the psych screener most likely be lifted in the morning. The patient does not exhibit any symptoms of alcohol withdrawal this time. This is alcohol induced mood disorder, malingering Diagnosis Primary Impression: Alcohol-induced mood disorder Additional Impression: Malingering Condition: Stable Tramaine Sagastume Jun 20, 2017 03:49
[2017-06-20] MEDS ORDERED: REME30TA PO (03:52)
[2017-06-20] MEDS ORDERED: LEXA10TA PO (03:52)
[2017-06-20 06:22] VITALS: BP 123/70; PULSE 78; RESP 18; O2SAT 96
--- NOTE | 2017-06-20 10:34 | PD ---
Physical Exam Date Seen by Provider: Jun 20, 2017 Time Seen by Provider: 10:33 Narrative 46-year-old male previously medically cleared for psychiatric evaluation, has been evaluated by psychiatric staff and diagnosed with EtOH induced mood disorder, and psychiatrically cleared for discharge. Patient continues to be medically stable for discharge. Follow-up will be based on psychiatric plan. Data Data Last Documented VS Vital Signs Date Time Temp Pulse Resp B/P (MAP) Pulse Ox O2 Delivery O2 Flow Rate FiO2 06/20/17 06:22 78 18 123/70 (87) 96 Room Air 06/20/17 03:45 98.9 Orders Orders Psych Screen (06/20/17 03:39) MDM Medical Record Reviewed: Yes Supervised Visit with JULIO: Yes Narrative Course 46-year-old male previously medically cleared for psychiatric evaluation, has been evaluated by psychiatric staff and diagnosed with EtOH induced mood disorder, and psychiatrically cleared for discharge. Patient continues to be medically stable for discharge. Follow-up will be based on psychiatric plan. Diagnosis Primary Impression: Alcohol-induced mood disorder Additional Impression: Malingering Patient Instructions: General Instructions Disposition: 01 DISCHARGE HOME Condition: Stable Sreedhar Galicia Jun 20, 2017 10:34
--- NOTE | 2017-06-20 11:17 | PD ---
History of Present Illness Chief Complaint: Psychiatric Symptoms Time Seen by Provider: 10:15 Travel History International Travel<30 Days: No Contact w/Intl Traveler<30days: No Known affected area: No Legal Status Legal Status: Palencia Act Palencia Act Signed By: Aliyah Medina Palencia Act Comment: 2016 @ 0322 History of Present Illness: History of Present Illness HPI 46-year-old white male with history of alcohol dependence who presents to emergency department under Palencia act initiated by PD. This is a well-known individual to the ER staff as well as myself for multiple evaluations due to alcohol related issues . He was seen earlier this evening and he was requesting to be allowed to sleep in the ED until he could go to [facility] in the morning. He was also reporting symptoms of alcohol withdrawal. He was given Librium and a prescription and was discharged to follow-up with [facility] for detox. He stated that there was not a bed available this evening. He states that he could not wait until the morning to go [facility] to [facility] for [facility] treatment of his substance abuse. He had notified police that he was feeling acutely suicidal and "" he was over it". The patient states that although he does not use IV drugs he would overdose on heroin. He denies any homicidal ideation. No ETOH level was obtained. Patient was monitored in J pod with no behavioral issues and no suicidality Patient is seen. EMR reviewed. Patient is alert and oriented. Speech is clear and logical. He states that he wants help and wants to get back into treatment. He also states that he has been out of his medication for about one week. Patient with no psychosis, no yulia. He does not appear to exhibit objective clinical signs of depression. Patient became angry when confronted with his continued use of alcohol and the negative effects of such and that he must commit to a recovery program. Patient reported that he has a bed waiting at [facility] so he will be discharged to [facility] for detox services. He became angry when advised he would be discharged and stated " Well I"ll just go and drink alcohol then ". 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 PREVIOUS PALENCIA ACTS WHILE UNDER THE INFLUENCE of Alcohol History of Inpatient Treatment: Yes ([facility]) Guns or firearms in home: No Social History Never . Homeless male. Hx Alcohol Use: Yes (DAILY) Hx Tobacco Use: Yes (2 PPD) Hx Substance Use: No Substance Use Type: Alcohol Other Substances Used: DRINKS EVERYDAY ALMOST DEPENDENT ON AVAILABLE FUNDS Hx of Substance Use Treatment: Yes Family Psychiatric History Unknown Allergies-Medications (Allergen,Severity, Reaction): Coded Allergies: paroxetine (Unverified Adverse Reaction, Intermediate, Confusion, 06/13/17 ) Reported Meds & Prescriptions Reported Meds & Active Scripts Active Chlordiazepoxide HCl 10 Mg Capsule 10 Mg PO TID PRN Reported Lexapro (Escitalopram Oxalate) 10 Mg Tab 10 Mg PO DAILY Remeron (Mirtazapine) 30 Mg Tab 30 Mg PO HS Review of Systems Except as stated in HPI: all other systems reviewed are Neg Mental Status Examination Appearance: Appropriate Consciousness: Alert Orientation: x4 Motor Activity: Normal gait Speech: Unremarkable Language: Adequate Fund of Knowledge: Adequate Attention and Concentration: Adequate Memory: Unremarkable Mood: Angry Affect: Other (congruent to mood) Thought Process & Associations: Intact Thought Content: Appropriate Hallucination Type: None Delusion Type: None Suicidal Ideation: Yes (only in context of discharge discussion) Suicidal Plan: No Suicidal Intention: No Homicidal Ideation: No Homicidal Plan: No Homicidal Intention: No Insight: Poor Judgment: Adequate MDM Medical Decision Making Medical Record Reviewed: Yes Assessment/Plan 46-year-old white male with history of alcohol dependence who presents to emergency department under Palencia act initiated by PD. This is a well-known individual to the ER staff as well as myself for multiple evaluations due to alcohol related issues . He was seen earlier this evening and he was requesting to be allowed to sleep in the ED until he could go to [facility] in the morning. He was also reporting symptoms of alcohol withdrawal. He was given Librium and a prescription and was discharged to follow-up with [facility] for detox. He stated that there was not a bed available this evening. He states that he could not wait until the morning to go over to [facility] for inpatient treatment of his substance abuse. He had notified police that he was feeling acutely suicidal and "" he was over it". The patient states that although he does not use IV drugs he would overdose on heroin. He denies any homicidal ideation. No ETOH level was obtained. Patient was monitored in J pod with no behavioral issues and no suicidality Patient is requesting help and has a bed at [facility] as per his report. he is advised he would be discharged in order for him to follow up with [facility] admission for detox. He becomes angry when informed of this decision. He makes vague threats of going out drinking alcohol. .Patient then requests to be discharged by 1100 am since he needs to catch the bus to [facility] by 11:30 am. I suspect that he is malingering some of his symptoms n order to obtain fdc here at [facility]. He is better served at [facility] for his alcohol dependence. Will lift BA and recommend to [facility]. Orders Orders Psych Screen (06/20/17 03:39) Ed Discharge Order (06/20/17 10:34) Results Vital Signs Date Time Temp Pulse Resp B/P (MAP) Pulse Ox O2 Delivery O2 Flow Rate FiO2 06/20/17 10:39 06/20/17 06:22 78 18 123/70 (87) 96 Room Air 06/20/17 03:45 98.9 105 18 137/80 (99) 98 Diagnosis Primary Impression: Alcohol-induced mood disorder Additional Impression: Malingering Psychiatrically Cleared: Yes Departure Forms: Tests/Procedures Patient Instructions: General Instructions Additional Instructions: Follow-up at [facility] outpatient. Med/ Other Pt Specific Info: No Meds Exist/No RX given Disposition: 01 DISCHARGE HOME Condition: Stable Problem Qualifiers Lakeshia Kirk Jun 20, 2017 11:17
--- NOTE | 2017-06-20 11:17 | PD ---
History of Present Illness Chief Complaint: Psychiatric Symptoms Time Seen by Provider: 10:15 Travel History International Travel<30 Days: No Contact w/Intl Traveler<30days: No Known affected area: No Legal Status Legal Status: Palencia Act Palencia Act Signed By: Aliyah Medina Palencia Act Comment: 2016 @ 0322 History of Present Illness: History of Present Illness HPI 46-year-old white male with history of alcohol dependence who presents to emergency department under Palencia act initiated by PD. This is a well-known individual to the ER staff as well as myself for multiple evaluations due to alcohol related issues . He was seen earlier this evening and he was requesting to be allowed to sleep in the ED until he could go to [facility] in the morning. He was also reporting symptoms of alcohol withdrawal. He was given Librium and a prescription and was discharged to follow-up with [facility] for detox. He stated that there was not a bed available this evening. He states that he could not wait until the morning to go [facility] of his substance abuse. He had notified police that he was feeling acutely suicidal and "" he was over it". The patient states that although he does not use IV drugs he would overdose on heroin. He denies any homicidal ideation. No ETOH level was obtained. Patient was monitored in J pod with no behavioral issues and no suicidality Patient is seen. EMR reviewed. Patient is alert and oriented. Speech is clear and logical. He states that he wants help and wants to get back into treatment. He also states that he has been out of his medication for about one week. Patient with no psychosis, no yulia. He does not appear to exhibit objective clinical signs of depression. Patient became angry when confronted with his continued use of alcohol and the negative effects of such and that he must commit to a recovery program. Patient reported that he has a bed waiting at [facility] so he will be discharged to [facility] for detox services. He became angry when advised he would be discharged and stated " Well I"ll just go and drink alcohol then ". 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 PREVIOUS PALENCIA ACTS WHILE UNDER THE INFLUENCE of Alcohol History of Inpatient Treatment: Yes ([facility]) Guns or firearms in home: No Social History Never . Homeless male. Hx Alcohol Use: Yes (DAILY) Hx Tobacco Use: Yes (2 PPD) Hx Substance Use: No Substance Use Type: Alcohol Other Substances Used: DRINKS EVERYDAY ALMOST DEPENDENT ON AVAILABLE FUNDS Hx of Substance Use Treatment: Yes Family Psychiatric History Unknown Allergies-Medications (Allergen,Severity, Reaction): Coded Allergies: paroxetine (Unverified Adverse Reaction, Intermediate, Confusion, 06/13/17 ) Reported Meds & Prescriptions Reported Meds & Active Scripts Active Chlordiazepoxide HCl 10 Mg Capsule 10 Mg PO TID PRN Reported Lexapro (Escitalopram Oxalate) 10 Mg Tab 10 Mg PO DAILY Remeron (Mirtazapine) 30 Mg Tab 30 Mg PO HS Review of Systems Except as stated in HPI: all other systems reviewed are Neg Mental Status Examination Appearance: Appropriate Consciousness: Alert Orientation: x4 Motor Activity: Normal gait Speech: Unremarkable Language: Adequate Fund of Knowledge: Adequate Attention and Concentration: Adequate Memory: Unremarkable Mood: Angry Affect: Other (congruent to mood) Thought Process & Associations: Intact Thought Content: Appropriate Hallucination Type: None Delusion Type: None Suicidal Ideation: Yes (only in context of discharge discussion) Suicidal Plan: No Suicidal Intention: No Homicidal Ideation: No Homicidal Plan: No Homicidal Intention: No Insight: Poor Judgment: Adequate MDM Medical Decision Making Medical Record Reviewed: Yes Assessment/Plan 46-year-old white male with history of alcohol dependence who presents to emergency department under Palencia act initiated by PD. This is a well-known individual to the ER staff as well as myself for multiple evaluations due to alcohol related issues . He was seen earlier this evening and he was requesting to be allowed to sleep in the ED until he could go to [facility] in the morning. He was also reporting symptoms of alcohol withdrawal. He was given Librium and a prescription and was discharged to follow-up with [facility] for detox. He stated that there was not a bed available this evening. He states that he could not wait until the morning to go over to [facility] for inpatient treatment of his substance abuse. He had notified police that he was feeling acutely suicidal and "" he was over it". The patient states that although he does not use IV drugs he would overdose on heroin. He denies any homicidal ideation. No ETOH level was obtained. Patient was monitored in J pod with no behavioral issues and no suicidality Patient is requesting help and has a bed at [facility] as per his report. he is advised he would be discharged in order for him to follow up with [facility] admission for detox. He becomes angry when informed of this decision. He makes vague threats of going out drinking alcohol. .Patient then requests to be discharged by 1100 am since he needs to catch the bus to [facility] by 11:30 am. I suspect that he is malingering some of his symptoms n order to obtain mcc here at [facility]. He is better served at [facility] for his alcohol dependence. Will lift BA and recommend to [facility]. Orders Orders Psych Screen (06/20/17 03:39) Ed Discharge Order (06/20/17 10:34) Results Vital Signs Date Time Temp Pulse Resp B/P (MAP) Pulse Ox O2 Delivery O2 Flow Rate FiO2 06/20/17 10:39 06/20/17 06:22 78 18 123/70 (87) 96 Room Air 06/20/17 03:45 98.9 105 18 137/80 (99) 98 Diagnosis Primary Impression: Alcohol-induced mood disorder Additional Impression: Malingering Psychiatrically Cleared: Yes Departure Forms: Tests/Procedures Patient Instructions: General Instructions Additional Instructions: Follow-up at [facility] outpatient. Med/ Other Pt Specific Info: No Meds Exist/No RX given Disposition: 01 DISCHARGE HOME Condition: Stable Problem Qualifiers Lakeshia Kirk Jun 20, 2017 11:17
--- NOTE | 2017-06-20 11:17 | PD ---
History of Present Illness Chief Complaint: Psychiatric Symptoms Time Seen by Provider: 10:15 Travel History International Travel<30 Days: No Contact w/Intl Traveler<30days: No Known affected area: No Legal Status Legal Status: Palencia Act Palencia Act Signed By: Aliyah Medina Palencia Act Comment: 2016 @ 0322 History of Present Illness: History of Present Illness HPI 46-year-old white male with history of alcohol dependence who presents to emergency department under Palencia act initiated by PD. This is a well-known individual to the ER staff as well as myself for multiple evaluations due to alcohol related issues . He was seen earlier this evening and he was requesting to be allowed to sleep in the ED until he could go to [facility] in the morning. He was also reporting symptoms of alcohol withdrawal. He was given Librium and a prescription and was discharged to follow-up with [facility] for detox. He stated that there was not a bed available this evening. He states that he could not wait until the morning to go over to [facility] for inpatient treatment of his substance abuse. He had notified police that he was feeling acutely suicidal and "" he was over it". The patient states that although he does not use IV drugs he would overdose on heroin. He denies any homicidal ideation. No ETOH level was obtained. Patient was monitored in J pod with no behavioral issues and no suicidality Patient is seen. EMR reviewed. Patient is alert and oriented. Speech is clear and logical. He states that he wants help and wants to get back into treatment. He also states that he has been out of his medication for about one week. Patient with no psychosis, no yulia. He does not appear to exhibit objective clinical signs of depression. Patient became angry when confronted with his continued use of alcohol and the negative effects of such and that he must commit to a recovery program. Patient reported that he has a bed waiting at [facility] so he will be discharged to [facility] for detox services. He became angry when advised he would be discharged and stated " Well I"ll just go and drink alcohol then ". 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 PREVIOUS PALENCIA ACTS WHILE UNDER THE INFLUENCE of Alcohol History of Inpatient Treatment: Yes ([facility]) Guns or firearms in home: No Social History Never . Homeless male. Hx Alcohol Use: Yes (DAILY) Hx Tobacco Use: Yes (2 PPD) Hx Substance Use: No Substance Use Type: Alcohol Other Substances Used: DRINKS EVERYDAY ALMOST DEPENDENT ON AVAILABLE FUNDS Hx of Substance Use Treatment: Yes Family Psychiatric History Unknown Allergies-Medications (Allergen,Severity, Reaction): Coded Allergies: paroxetine (Unverified Adverse Reaction, Intermediate, Confusion, 06/13/17 ) Reported Meds & Prescriptions Reported Meds & Active Scripts Active Chlordiazepoxide HCl 10 Mg Capsule 10 Mg PO TID PRN Reported Lexapro (Escitalopram Oxalate) 10 Mg Tab 10 Mg PO DAILY Remeron (Mirtazapine) 30 Mg Tab 30 Mg PO HS Review of Systems Except as stated in HPI: all other systems reviewed are Neg Mental Status Examination Appearance: Appropriate Consciousness: Alert Orientation: x4 Motor Activity: Normal gait Speech: Unremarkable Language: Adequate Fund of Knowledge: Adequate Attention and Concentration: Adequate Memory: Unremarkable Mood: Angry Affect: Other (congruent to mood) Thought Process & Associations: Intact Thought Content: Appropriate Hallucination Type: None Delusion Type: None Suicidal Ideation: Yes (only in context of discharge discussion) Suicidal Plan: No Suicidal Intention: No Homicidal Ideation: No Homicidal Plan: No Homicidal Intention: No Insight: Poor Judgment: Adequate MDM Medical Decision Making Medical Record Reviewed: Yes Assessment/Plan 46-year-old white male with history of alcohol dependence who presents to emergency department under Palencia act initiated by PD. This is a well-known individual to the ER staff as well as myself for multiple evaluations due to alcohol related issues . He was seen earlier this evening and he was requesting to be allowed to sleep in the ED until he could go to [facility] in the morning. He was also reporting symptoms of alcohol withdrawal. He was given Librium and a prescription and was discharged to follow-up with [facility] for detox. He stated that there was not a bed available this evening. He states that he could not wait until the morning to go over to [facility] for inpatient treatment of his substance abuse. He had notified police that he was feeling acutely suicidal and "" he was over it". The patient states that although he does not use IV drugs he would overdose on heroin. He denies any homicidal ideation. No ETOH level was obtained. Patient was monitored in J pod with no behavioral issues and no suicidality Patient is requesting help and has a bed at [facility] as per his report. he is advised he would be discharged in order for him to follow up with [facility] admission for detox. He becomes angry when informed of this decision. He makes vague threats of going out drinking alcohol. .Patient then requests to be discharged by 1100 am since he needs to catch the bus to [facility] by 11:30 am. I suspect that he is malingering some of his symptoms n order to obtain correction here at [facility]. He is better served at [facility] for his alcohol dependence. Will lift BA and recommend to [facility]. Orders Orders Psych Screen (06/20/17 03:39) Ed Discharge Order (06/20/17 10:34) Results Vital Signs Date Time Temp Pulse Resp B/P (MAP) Pulse Ox O2 Delivery O2 Flow Rate FiO2 06/20/17 10:39 06/20/17 06:22 78 18 123/70 (87) 96 Room Air 06/20/17 03:45 98.9 105 18 137/80 (99) 98 Diagnosis Primary Impression: Alcohol-induced mood disorder Additional Impression: Malingering Psychiatrically Cleared: Yes Departure Forms: Tests/Procedures Patient Instructions: General Instructions Additional Instructions: Follow-up at [facility] outpatient. Med/ Other Pt Specific Info: No Meds Exist/No RX given Disposition: 01 DISCHARGE HOME Condition: Stable Problem Qualifiers Lakeshia Kirk Jun 20, 2017 11:17
== END 2017-06-20 10:42 | disposition home or self-care (01) ==
LOC: NEPD 03:22 → NEPJ 10:42
DX: F10.94 Alcohol use, unspecified with alcohol-induced mood disorder (principal); F41.9 Anxiety disorder, unspecified; F32.9 Major depressive disorder, single episode, unspecified; J44.9 Chronic obstructive pulmonary disease, unspecified; R00.2 Palpitations; R56.9 Unspecified convulsions; F17.200 Nicotine dependence, unspecified, uncomplicated; Z76.5 Malingerer [conscious simulation]; Z79.899 Other long term (current) drug therapy
CPT/HCPCS: 99283